=== PATIENT | female | born 1950 | race Caucasian/White ===

== ENCOUNTER → 2018-01-11 | Outpatient (CLI) | payer MEDICARE ==
[2018-01-11 18:49] LABS: Calcium 9.7 mg/dL (8.4-10.2); Total Bilirubin 0.5 mg/dL (0.2-1.3); Total Protein 6.8 g/dL (6.3-8.2)
== END | disposition home or self-care (01) ==
LOC: MMGSC 16:07
PROVIDERS: ATTEND Family Medicine
DX: E78.5 Hyperlipidemia, unspecified (principal)
CPT/HCPCS: 36415; 80053; 80061; 99214

== ENCOUNTER 2019-01-19 10:13 | Inpatient (IN) | payer MEDICARE ==
[2019-01-19] MEDS ORDERED: SODIUM CHLORIDE 0.9% 1,000 ML IV STA (10:26)
[2019-01-19] MEDS ORDERED: SODIUM CHLORIDE 0.9% 500 ML 500 ML IV STA (10:26)
--- NOTE | 2019-01-19 10:53 | ED ---
General Adult HPI - General Source: patient, EMS, RN notes reviewed Mode of arrival: EMS Limitations: no limitations <Bentley Guardado - Last Filed: 01/19/19 15:09> <Ángel Elizalde - Last Filed: 01/19/19 15:15> - General Stated complaint: Weakness Time Seen by Provider: 01/19/19 10:25 - History of Present Illness Initial comments: 68-year-old female presents emergency department via EMS for generalized weakness unable to care for herself. Patient is currently in the hospital. Patient was found tingling in her bed [id number]. Patient states that she has difficulty walking normally uses a walker but states that she just unable to care for herself that she is too weak. Patient denies any current chest pain or shortness of breath denies any headache or dizziness. Patient has a history of IA with stent, diverticulitis with surgery. Patient denies any current dysuria or hematuria. Patient states that she has been taking some of her medications. (Bentley Guardado) - Related Data Home Medications Medication Instructions Recorded Confirmed Aspirin 325 mg PO DAILY 10/13/16 01/19/19 Carvedilol 25 mg PO BID 10/13/16 01/19/19 Cholecalciferol [Vitamin D3] 1,000 unit PO DAILY 10/13/16 01/19/19 Lisinopril [Zestril] 10 mg PO QAM 10/13/16 01/19/19 Simvastatin [Zocor] 40 mg PO HS 10/13/16 01/19/19 amLODIPine [Norvasc] 5 mg PO QAM 10/13/16 01/19/19 Atorvastatin [Lipitor] 40 mg PO HS 01/19/19 01/19/19 Gabapentin [Neurontin] 100 mg PO HS 01/19/19 01/19/19 Loratadine [Claritin] 10 mg PO DAILY 01/19/19 01/19/19 Nitroglycerin Sl Tabs [Nitrostat] 0.4 mg SUBLINGUAL Q5M PRN 01/19/19 01/19/19 Allergies Allergy/AdvReac Type Severity Reaction Status Date / Time No Known Allergies Allergy Verified 01/19/19 10:36 Review of Systems ROS Other: All systems not noted in ROS Statement are negative. <Bentley Guardado - Last Filed: 01/19/19 15:09> ROS Other: All systems not noted in ROS Statement are negative. <Ángel Elizalde - Last Filed: 01/19/19 15:15> ROS Statement: Those systems with pertinent positive or pertinent negative responses have been documented in the HPI. Past Medical History Past Medical History: Hyperlipidemia, Hypertension, Osteoarthritis (OA) Additional Past Medical History / Comment(s): diverticulitis, stated "has some balance issues d/t bad rt knee and lt hip", right drop foot History of Any Multi-Drug Resistant Organisms: None Reported Past Surgical History: Bowel Resection, Heart Catheterization With Stent Additional Past Surgical History / Comment(s): Colostomy and reversal. OPEN VENTRAL HERNIA REPAIR Past Anesthesia/Blood Transfusion Reactions: No Reported Reaction Date of Last Stent Placement:: 2010 Past Psychological History: Anxiety, Depression Smoking Status: Current every day smoker Past Alcohol Use History: None Reported Past Drug Use History: None Reported - Past Family History Mother Family Medical History: No Reported History <Bentley Guardado - Last Filed: 01/19/19 15:09> General Exam Limitations: no limitations General appearance: alert, in no apparent distress Head exam: Present: atraumatic, normocephalic, normal inspection Eye exam: Present: normal appearance, PERRL, EOMI. Absent: scleral icterus, conjunctival injection, periorbital swelling ENT exam: Present: normal exam, normal oropharynx, mucous membranes moist, TM's normal bilaterally Neck exam: Present: normal inspection, full ROM. Absent: tenderness, meningismus, lymphadenopathy Respiratory exam: Present: normal lung sounds bilaterally. Absent: respiratory distress, wheezes, rales, rhonchi, stridor Cardiovascular Exam: Present: regular rate, normal rhythm, normal heart sounds. Absent: systolic murmur, diastolic murmur, rubs, gallop, clicks GI/Abdominal exam: Present: soft, normal bowel sounds. Absent: distended, tenderness, guarding, rebound, rigid Back exam: Absent: CVA tenderness (R), CVA tenderness (L) Neurological exam: Present: alert, oriented X3, CN II-XII intact, reflexes normal. Absent: motor sensory deficit Psychiatric exam: Present: depressed. Absent: homicidal ideation, suicidal ideation Skin exam: Present: warm, dry, intact, normal color. Absent: rash <Bentley Guardado - Last Filed: 01/19/19 15:09> Vital Signs 01/19/19 01/19/19 01/19/19 10:21 10:26 10:30 Temperature 97.8 F Pulse Rate 67 64 66 Respiratory 18 18 17 Rate Blood Pressure 146/79 146/76 146/79 O2 Sat by Pulse 95 96 98 Oximetry 01/19/19 11:00 Temperature Pulse Rate 62 Respiratory 18 Rate Blood Pressure 116/82 O2 Sat by Pulse 98 Oximetry EKG Findings - EKG Comments: EKG Findings:: EKG performed at 11:37 normal sinus rhythm with a first-degree block rate of 62 OK 226 QRS 72 QT/QTC 382/387 <Bentley Guardado - Last Filed: 01/19/19 15:09> Medical Decision Making - Lab Data Result diagrams: 01/19/19 11:20 01/19/19 11:20 <Bentley Guardado - Last Filed: 01/19/19 15:09> - Lab Data Result diagrams: 01/19/19 11:20 01/19/19 11:20 <Ángel Elizalde - Last Filed: 01/19/19 15:15> - Medical Decision Making 68-year-old female presented to emergency department for inability to care for herself, generalized weakness and depression. Patient was evaluated by EPS he does not recommend inpatient treatment for depression though she needs outpatient treatment. Patient does have extreme difficulty with ambulating to the point where she is near nonambulatory. Patient was found soiled in her own bed. Patient lab work shows mild acute on chronic renal failure. A she will be admitted to be placed in a long-term. (Bentley Guardado) Case discussed with practitioner quang, case also discussed with Dr. New, who will admit cover with Dr. Ramírez. (Ángel Elizalde) - Lab Data Lab Results 01/19/19 01/19/19 01/19/19 Range/Units 11:20 11:20 11:20 WBC 7.9 (3.8-10.6) k/uL RBC 4.03 (3.80-5.40) m/uL Hgb 12.5 (11.4-16.0) gm/dL Hct 38.8 (34.0-46.0) % MCV 96.4 (80.0-100.0) fL MCH 30.9 (25.0-35.0) pg MCHC 32.1 (31.0-37.0) g/dL RDW 13.0 (11.5-15.5) % Plt Count 205 (150-450) k/uL Neutrophils % 76 % Lymphocytes % 12 % Monocytes % 5 % Eosinophils % 5 % Basophils % 1 % Neutrophils # 6.0 (1.3-7.7) k/uL Lymphocytes # 0.9 L (1.0-4.8) k/uL Monocytes # 0.4 (0-1.0) k/uL Eosinophils # 0.4 (0-0.7) k/uL Basophils # 0.1 (0-0.2) k/uL PT (9.0-12.0) sec INR (<1.2) APTT (22.0-30.0) sec Sodium 141 (137-145) mmol/L Potassium 5.2 H (3.5-5.1) mmol/L Chloride 110 H (98-107) mmol/L Carbon Dioxide 24 (22-30) mmol/L Anion Gap 7 mmol/L BUN 33 H (7-17) mg/dL Creatinine 2.29 H (0.52-1.04) mg/dL Est GFR (CKD-EPI)AfAm 24 (>60 ml/min/1.73 sqM) Est GFR (CKD-EPI)NonAf 21 (>60 ml/min/1.73 sqM) Glucose 99 (74-99) mg/dL Plasma Lactic Acid Carlos 0.7 (0.7-2.0) mmol/L Calcium 9.5 (8.4-10.2) mg/dL Phosphorus 4.1 (2.5-4.5) mg/dL Magnesium 2.1 (1.6-2.3) mg/dL Total Bilirubin 0.7 (0.2-1.3) mg/dL AST 16 (14-36) U/L ALT 29 (9-52) U/L Alkaline Phosphatase 95 (38-126) U/L Creatine Kinase 60 (30-135) U/L Troponin I (0.000-0.034) ng/mL Total Protein 6.5 (6.3-8.2) g/dL Albumin 3.7 (3.5-5.0) g/dL Urine Color Urine Appearance (Clear) Urine pH (5.0-8.0) Ur Specific [place] (1.001-1.035) Urine Protein (Negative) Urine Glucose (UA) (Negative) Urine Ketones (Negative) Urine Blood (Negative) Urine Nitrite (Negative) Urine Bilirubin (Negative) Urine Urobilinogen (<2.0) mg/dL Ur Leukocyte Esterase (Negative) 01/19/19 01/19/19 01/19/19 Range/Units 11:20 11:20 11:20 WBC (3.8-10.6) k/uL RBC (3.80-5.40) m/uL Hgb (11.4-16.0) gm/dL Hct (34.0-46.0) % MCV (80.0-100.0) fL MCH (25.0-35.0) pg MCHC (31.0-37.0) g/dL RDW (11.5-15.5) % Plt Count (150-450) k/uL Neutrophils % % Lymphocytes % % Monocytes % % Eosinophils % % Basophils % % Neutrophils # (1.3-7.7) k/uL Lymphocytes # (1.0-4.8) k/uL Monocytes # (0-1.0) k/uL Eosinophils # (0-0.7) k/uL Basophils # (0-0.2) k/uL PT 9.7 (9.0-12.0) sec INR 0.9 (<1.2) APTT 22.3 (22.0-30.0) sec Sodium (137-145) mmol/L Potassium (3.5-5.1) mmol/L Chloride (98-107) mmol/L Carbon Dioxide (22-30) mmol/L Anion Gap mmol/L BUN (7-17) mg/dL Creatinine (0.52-1.04) mg/dL Est GFR (CKD-EPI)AfAm (>60 ml/min/1.73 sqM) Est GFR (CKD-EPI)NonAf (>60 ml/min/1.73 sqM) Glucose (74-99) mg/dL Plasma Lactic Acid Carlos (0.7-2.0) mmol/L Calcium (8.4-10.2) mg/dL Phosphorus (2.5-4.5) mg/dL Magnesium (1.6-2.3) mg/dL Total Bilirubin (0.2-1.3) mg/dL AST (14-36) U/L ALT (9-52) U/L Alkaline Phosphatase (38-126) U/L Creatine Kinase (30-135) U/L Troponin I 0.023 (0.000-0.034) ng/mL Total Protein (6.3-8.2) g/dL Albumin (3.5-5.0) g/dL Urine Color Light Yellow Urine Appearance Clear (Clear) Urine pH 5.5 (5.0-8.0) Ur Specific [place] 1.010 (1.001-1.035) Urine Protein Trace H (Negative) Urine Glucose (UA) Negative (Negative) Urine Ketones Negative (Negative) Urine Blood Negative (Negative) Urine Nitrite Negative (Negative) Urine Bilirubin Negative (Negative) Urine Urobilinogen <2.0 (<2.0) mg/dL Ur Leukocyte Esterase Negative (Negative) Disposition <Bentley Guardado - Last Filed: 01/19/19 15:09> <Ángel Elizalde - Last Filed: 01/19/19 15:15> Clinical Impression: Unable to ambulate, Failure to thrive, Acute on chronic renal failure, Wound of foot Disposition: ADMITTED IP TO THIS HOSP Condition: Fair Referrals: Elsa Xiong MD [Primary Care Provider] - 1-2 days
[2019-01-19 11:40] LABS: Basophils # (A) 0.1 k/uL (0-0.2); Basophils % (A) 1 %; Eosinophils # (A) 0.4 k/uL (0-0.7); Eosinophils % (A) 5 %; HCT 38.8 % (34.0-46.0); HGB 12.5 gm/dL (11.4-16.0); Lymphocytes # (A) 0.9 k/uL (1.0-4.8); Lymphocytes % (A) 12 %; MCH 30.9 pg (25.0-35.0); MCHC 32.1 g/dL (31.0-37.0); MCV 96.4 fL (80.0-100.0); Mean Platelet Volume 7.8; Monocytes # (A) 0.4 k/uL (0-1.0); Monocytes % (A) 5 %; Neutrophils % (A) 76 %; Platelet Count 205 k/uL (150-450); RBC 4.03 m/uL (3.80-5.40); WBC 7.9 k/uL (3.8-10.6)
[2019-01-19 11:47] LABS: Appearance,Urine Clear (Clear); Bilirubin,Urine Negative (Negative); Blood,Urine Negative (Negative); Color,Urine Light Yellow; Glucose,Urine (UA) Negative (Negative); Ketones,Urine Negative (Negative); Leukocyte Esterase,Urine Negative (Negative); Nitrite,Urine Negative (Negative); PH, Urine 5.5 (5.0-8.0); Protein,Urine Trace (Negative); Urobilinogen,Urine <2.0 mg/dL (<2.0)
[2019-01-19 11:49] LABS: Albumin 3.7 g/dL (3.5-5.0); Calcium 9.5 mg/dL (8.4-10.2); Magnesium 2.1 mg/dL (1.6-2.3); Phosphorus 4.1 mg/dL (2.5-4.5); Potassium 5.2 mmol/L (3.5-5.1); Total Bilirubin 0.7 mg/dL (0.2-1.3); Total Protein 6.5 g/dL (6.3-8.2)
[2019-01-19 11:53] LABS: INR 0.9 (<1.2); Partial Thromboplastin Time 22.3 sec (22.0-30.0); Prothrombin Time 9.7 sec (9.0-12.0)
--- NOTE | 2019-01-19 12:56 | XR ---
EXAMINATION TYPE: XR chest 2V DATE OF EXAM: 01/19/2019 COMPARISON: Chest x-ray February 15, 2010 HISTORY: Weakness TECHNIQUE: Frontal and lateral views of the chest are obtained. FINDINGS: The cardiac silhouette size remains enlarged. Lungs are grossly clear without pleural effu joni or pneumothorax seen bilaterally. Ectatic thoracic aorta causing mass effect on trachea is note d. Overlying EKG leads are seen. The osseous structures are intact. IMPRESSION: Cardiomegaly without acute pulmonary process currently.
[2019-01-19] MEDS ORDERED: NALOXONE 0.4 MG/ML 1 ML VIAL IV PRN (15:26)
[2019-01-19] MEDS ORDERED: ACETAMINOPHEN TAB 325 MG TAB PO PRN (16:45)
--- NOTE | 2019-01-19 17:05 | P.HPIM ---
History of Present Illness H&P Date: 01/19/19 Chief Complaint: Generalized weakness, placement 68-year-old female with PMH of hypertension, hyperlipidemia, CAD and DJD of the knees presents to the ED for failure to thrive and generalized weakness. Patient usually lives with her , who is in charge of taking care of her, but has been admitted for the past 2 days. Patient states that she ambulates with a walker with the assistance of her . Her was concerned today, prompting him to call EMS for safety concerns. Patient states that she feels unsafe, and is fearful of falling, and was agreeable to come to the ED. Of note, patient reports lower extremity weakness that began 7 years ago after receiving a stent post [place]. She was started on simvastatin, and continue that medication over the span of a year. Patient reported profound muscle weakness, spasms over that time. Patient states that she never recovered and has continuously gotten weak since then. She also complains of chronic bilateral knee pain, related to osteoarthritis. Patient reports falling 1-1/2 weeks ago, states that her knees gave in on her. She denies any headaches, nausea, vomiting, fever, cough, chest pain, shortness of breath, changes in urination or bowel habits. No changes in appetite or weight. No dizziness, numbness, or tingling of the extremities. Patient states that she has been eating [employer] and frozen food dinners over the last 2 days. In the ED, CBC was unremarkable. Coagulation panel was negative. CMP showed a potassium of 5.2, chloride of 110, BUN of 33 and creatinine of 2.29. Patient is admitted for failure to thrive, generalized weakness, placement. Social work is on consult. Review of Systems All systems: negative Past Medical History Past Medical History: Hyperlipidemia, Hypertension, Osteoarthritis (OA) Additional Past Medical History / Comment(s): diverticulitis, stated "has some balance issues d/t bad rt knee and lt hip", right drop foot History of Any Multi-Drug Resistant Organisms: None Reported Past Surgical History: Bowel Resection, Heart Catheterization With Stent Additional Past Surgical History / Comment(s): Colostomy and reversal. OPEN VENTRAL HERNIA REPAIR Past Anesthesia/Blood Transfusion Reactions: No Reported Reaction Date of Last Stent Placement:: 2010 Past Psychological History: Anxiety, Depression Smoking Status: Current every day smoker Past Alcohol Use History: None Reported Past Drug Use History: None Reported - Past Family History Mother Family Medical History: No Reported History Medications and Allergies Home Medications Medication Instructions Recorded Confirmed Type Aspirin 325 mg PO DAILY 10/13/16 01/19/19 History Carvedilol 25 mg PO BID 10/13/16 01/19/19 History Cholecalciferol [Vitamin D3] 1,000 unit PO DAILY 10/13/16 01/19/19 History Lisinopril [Zestril] 10 mg PO QAM 10/13/16 01/19/19 History Simvastatin [Zocor] 40 mg PO HS 10/13/16 01/19/19 History amLODIPine [Norvasc] 5 mg PO QAM 10/13/16 01/19/19 History Atorvastatin [Lipitor] 40 mg PO HS 01/19/19 01/19/19 History Gabapentin [Neurontin] 100 mg PO HS 01/19/19 01/19/19 History Loratadine [Claritin] 10 mg PO DAILY 01/19/19 01/19/19 History Nitroglycerin Sl Tabs [Nitrostat] 0.4 mg SUBLINGUAL Q5M PRN 01/19/19 01/19/19 History Allergies Allergy/AdvReac Type Severity Reaction Status Date / Time No Known Allergies Allergy Verified 01/19/19 10:36 Physical Exam Vitals: Vital Signs Temp Pulse Pulse Resp BP BP Pulse Ox 01/19/19 16:33 98.4 F 70 16 147/76 97 01/19/19 11:00 62 18 116/82 98 01/19/19 10:30 66 17 146/79 98 01/19/19 10:26 97.8 F 64 18 146/76 96 01/19/19 10:21 67 18 146/79 95 Intake and Output 01/19/19 01/19/19 01/19/19 06:59 14:59 22:59 Other: Weight 86.183 kg General: [non toxic], [no distress], [appears at stated age] Derm: [warm], [dry] Head: [atraumatic], [normocephalic], [symmetric] Eyes: [EOMI], [no lid lag], [anicteric sclera] Mouth: [no lip lesion], [mucus membranes moist] Cardiovascular: [S1S2 reg], [no murmur] Lungs: [CTA bilateral], [no rhonchi, no rales] , [no accessory muscle use] Abdominal: [soft], [ nontender to palpation], [no guarding], [no appreciable organomegaly] Ext: [no gross muscle atrophy], [no edema], [no contractures] Neuro: [ CN II-XI grossly intact], [no focal neuro deficits] Psych: [Alert], [oriented], [appropriate affect] Results CBC & Chem 7: 01/19/19 11:20 01/19/19 11:20 Labs: Abnormal Lab Results - Last 24 Hours (Table) 01/19/19 01/19/19 01/19/19 Range/Units 11:20 11:20 11:20 Lymphocytes # 0.9 L (1.0-4.8) k/uL Potassium 5.2 H (3.5-5.1) mmol/L Chloride 110 H (98-107) mmol/L BUN 33 H (7-17) mg/dL Creatinine 2.29 H (0.52-1.04) mg/dL Urine Protein Trace H (Negative) Thrombosis Risk Factor Assmnt - Choose All That Apply Any of the Below Risk Factors Present?: Yes Each Factor Represents 1 point: Obesity (BMI >25) Other Risk Factors: Yes Each Risk Factor Represents 2 Points: Age 61-74 years, Patient confined to bed Thrombosis Risk Factor Assessment Total Risk Factor Score: 5 Thrombosis Risk Factor Assessment Level: High Risk Assessment and Plan Assessment: Assessment and Plan 1. Failure to thrive secondary to generalized weakness 2. Hyperkalemia 3. Acute kidney injury on chronic kidney disease 4. Hypertension 5. CAD 6. DVT GI prophylaxis 1. Per history, secondary to simvastatin use. Patient unable to complete her ADLs and IADLs. Will follow CPK, RPR, B12, TSH. Will follow PT and OT recommendations. Social work consulted for placement. 2. Potassium is 5.2. EKG shows sinus rhythm with sinus arrhythmia and first- degree AV block, no peaked T waves. Patient is asymptomatic. Daily BMP. 3. BUN 33, creatinine 2.29 GFR 21. Baseline creatinine around 2 from previous admissions. Hold lisinopril. Continue normal saline at 50 mL per hour. Avoid nephrotoxins. Daily BMP. 4. BP 147/76. Continue amlodipine 5 mg by mouth daily. Monitor vitals, adjust medications as necessary. 5. Stable. Continue aspirin 325 mg by mouth daily. Statin on hold due to muscle weakness. 6. Lovenox 40 mg subcutaneously daily. Patient admitted for failure to thrive, unable to take care of herself. Social work is on consult. Patient states that she would like to make her , Antonino the decision maker if she is unable to make decisions.
[2019-01-19] MEDS: HYDROcodone/APAP 5-325MG 1 EACH TAB PO PRN ×2 (17:40→21:31)
[2019-01-19] MEDS: CARVEDILOL 12.5 MG TAB PO SCH (17:40)
[2019-01-19] MEDS: SODIUM CHLORIDE 0.9% 1,000 ML IV SCH (18:33)
[2019-01-19] MEDS: GABAPENTIN 100 MG CAP PO SCH (21:24)
[2019-01-20] MEDS: CARVEDILOL 12.5 MG TAB PO SCH ×2 (07:26→16:07)
[2019-01-20] MEDS: LORATADINE 10 MG TAB PO SCH (07:27)
[2019-01-20] MEDS: ASPIRIN 325 MG TAB PO SCH (07:27)
[2019-01-20] MEDS: HYDROcodone/APAP 5-325MG 1 EACH TAB PO PRN (07:27)
[2019-01-20] MEDS: amLODIPine 5 MG TAB PO SCH (07:27)
[2019-01-20] MEDS ORDERED: LISINOPRIL 10 MG TAB PO SCH (09:00)
[2019-01-20] MEDS ORDERED: ENOXAPARIN 40 MG/0.4 ML SYRINGE SQ SCH (09:00)
[2019-01-20 09:03] LABS: Calcium 9.7 mg/dL (8.4-10.2)
--- NOTE | 2019-01-20 10:28 | P.PN ---
Subjective Progress Note Date: 01/20/19 Principal diagnosis: weakness Patient was seen and examined. No acute events overnight. Patient reports difficulty sleeping overnight, requesting sleeping aid. Patient reports pain in her bilateral knee, associated with advanced osteoarthritis. Patient reports that [place] does not work, requesting a change in medication due to the fact that she is used to for too long. She denies any chest pain, shortness of breath or palpitations. No dizziness. Objective - Vital Signs Vital signs: Vital Signs Temp 98.4 F 01/20/19 06:31 Pulse 71 01/20/19 06:31 Resp 18 01/20/19 08:00 BP 157/87 01/20/19 06:31 Pulse Ox 94 L 01/20/19 06:31 Intake & Output 01/19/19 01/20/19 01/20/19 18:59 06:59 18:59 Intake Total 520 Balance 520 Weight 86.183 kg Intake: Oral 520 Other: Voiding Method Incontinent Bedside Commode Bedside Commode Incontinent Diaper Incontinent # Voids 1 # Bowel Movements 0 - Exam General: [non toxic], [no distress], [appears at stated age] Derm: [warm], [dry] Head: [atraumatic], [normocephalic], [symmetric] Eyes: [EOMI], [no lid lag], [anicteric sclera] Mouth: [no lip lesion], [mucus membranes moist] Cardiovascular: [S1S2 reg], [no murmur] Lungs: [CTA bilateral], [no rhonchi, no rales] , [no accessory muscle use] Abdominal: [soft], [ nontender to palpation], [no guarding], [no appreciable organomegaly] Ext: [no gross muscle atrophy], [no edema], [no contractures] Neuro: [ CN II-XI grossly intact], [no focal neuro deficits] Psych: [Alert], [oriented], [appropriate affect] - Labs CBC & Chem 7: 01/19/19 11:20 01/20/19 08:24 Labs: Abnormal Lab Results - Last 24 Hours (Table) 01/19/19 01/19/19 01/19/19 Range/Units 11:20 11:20 11:20 Lymphocytes # 0.9 L (1.0-4.8) k/uL Potassium 5.2 H (3.5-5.1) mmol/L Chloride 110 H (98-107) mmol/L Carbon Dioxide (22-30) mmol/L BUN 33 H (7-17) mg/dL Creatinine 2.29 H (0.52-1.04) mg/dL Glucose (74-99) mg/dL Urine Protein Trace H (Negative) 01/20/19 Range/Units 08:24 Lymphocytes # (1.0-4.8) k/uL Potassium (3.5-5.1) mmol/L Chloride 111 H (98-107) mmol/L Carbon Dioxide 21 L (22-30) mmol/L BUN 32 H (7-17) mg/dL Creatinine 2.14 H (0.52-1.04) mg/dL Glucose 111 H (74-99) mg/dL Urine Protein (Negative) Assessment and Plan Assessment: Assessment and Plan 1. Failure to thrive secondary to generalized weakness 2. Acute kidney injury on chronic kidney disease 4. Hypertension 5. CAD 6. DVT GI prophylaxis 1. Per history, secondary to simvastatin use. Patient unable to complete her ADLs and IADLs. CPK and TSH within normal limits. Will follow RPR, B12 Will follow PT and OT recommendations. Social work consulted for placement. 3. BUN 33-32, creatinine 2.29-2.14 GFR 21-23. Baseline creatinine around 2 from previous admissions. Hold lisinopril. Continue normal saline at 50 mL per hour. Avoid nephrotoxins. Daily BMP. 4. BP 157/87. Continue amlodipine 5 mg by mouth daily. Monitor vitals, adjust medications as necessary. 5. Stable. Continue aspirin 325 mg by mouth daily. Statin on hold due to muscle weakness. 6. Lovenox 40 mg subcutaneously daily. Patient admitted for failure to thrive, unable to take care of herself. Social work is on consult. Patient states that she would like to make her , Antonino the decision maker if she is unable to make decisions.
[2019-01-20] MEDS: MORPHINE SULFATE 2 MG/ML SYRINGE IV PRN ×3 (10:31→23:03)
[2019-01-20] MEDS: oxyCODONE-APAP 7.5-325MG 1 EACH TAB PO PRN (12:24)
[2019-01-20] MEDS: SODIUM CHLORIDE 0.9% 1,000 ML IV SCH (13:59)
--- NOTE | 2019-01-20 17:56 | P.GSHP ---
History of Present Illness H&P Date: 01/20/19 Chief Complaint: Wound right foot Patient 68-year-old female admitted several days ago for weakness and failure to thrive. Patient states that over the last several weeks she is being coming week or week or nonviable or walk etc. Patient has a past medical history of stent placement in treatment for high prior cholesterol. Patient has been on cholesterol medicine and had been getting weaker and weaker. He states the right big toe became sore several days ago when she fell. She has not had her nails taken care of for several months or longer. Able to get out of the house Past Medical History Past Medical History: Hyperlipidemia, Hypertension, Osteoarthritis (OA) Additional Past Medical History / Comment(s): diverticulitis, stated "has some balance issues d/t bad rt knee and lt hip", right drop foot History of Any Multi-Drug Resistant Organisms: None Reported Past Surgical History: Bowel Resection, Heart Catheterization With Stent Additional Past Surgical History / Comment(s): Colostomy and reversal. OPEN VENTRAL HERNIA REPAIR Past Anesthesia/Blood Transfusion Reactions: No Reported Reaction Date of Last Stent Placement:: 2010 Past Psychological History: Anxiety, Depression Smoking Status: Current every day smoker Past Alcohol Use History: None Reported Past Drug Use History: None Reported - Past Family History Mother Family Medical History: No Reported History Medications and Allergies Home Medications Medication Instructions Recorded Confirmed Type Aspirin 325 mg PO DAILY 10/13/16 01/19/19 History Carvedilol 25 mg PO BID 10/13/16 01/19/19 History Cholecalciferol [Vitamin D3] 1,000 unit PO DAILY 10/13/16 01/19/19 History Lisinopril [Zestril] 10 mg PO QAM 10/13/16 01/19/19 History Simvastatin [Zocor] 40 mg PO HS 10/13/16 01/19/19 History amLODIPine [Norvasc] 5 mg PO QAM 10/13/16 01/19/19 History Atorvastatin [Lipitor] 40 mg PO HS 01/19/19 01/19/19 History Gabapentin [Neurontin] 100 mg PO HS 01/19/19 01/19/19 History Loratadine [Claritin] 10 mg PO DAILY 01/19/19 01/19/19 History Nitroglycerin Sl Tabs [Nitrostat] 0.4 mg SUBLINGUAL Q5M PRN 01/19/19 01/19/19 History Allergies Allergy/AdvReac Type Severity Reaction Status Date / Time No Known Allergies Allergy Verified 01/19/19 10:36 Surgical - Exam Vital Signs Pulse Resp BP Pulse Ox 67 18 146/79 95 01/19/19 10:21 01/19/19 10:21 01/19/19 10:21 01/19/19 10:21 - Cardiovascular Patient has generalized edema bilateral lower extremities. Secondary to the edema there is nonpalpable pedal pulses. There is no digital hair 10. The extremities are cold bilateral. - Integumentary Patient has fairly elongated nails 10 with an airless. Dystrophic and elongated excessively. The example of the excessive notices that the hallux nails are both at least 4 inches long. The right hallux nail is traumatized and avulsed from the nail bed and attached at the proximal nail fold hematogenous fluid surrounding this area. There is no extending erythema edema or sign of infection the remaining nails are similarly dystrophic elongated with mycotic debris. - Neurologic All epicritic and pallesthetic sensations grossly intact and symmetrical bilateral - Musculoskeletal Range of motion ankle joint decreased bilateral range of motion subtalar joint and midtarsal joint decreased bilateral decreased range of motion metatarsophalangeal joints bilateral all inverters everters plantar flexed dorsiflexors grossly intact symmetrical bilateral with strength 4/5 all groups Results - Labs 01/19/19 11:20 01/20/19 08:24 Abnormal Lab Results - Last 24 Hours (Table) 01/20/19 Range/Units 08:24 Chloride 111 H (98-107) mmol/L Carbon Dioxide 21 L (22-30) mmol/L BUN 32 H (7-17) mg/dL Creatinine 2.14 H (0.52-1.04) mg/dL Glucose 111 H (74-99) mg/dL Diabetes panel 01/20/19 Range/Units 08:24 Sodium 140 (137-145) mmol/L Potassium 5.0 (3.5-5.1) mmol/L Chloride 111 H (98-107) mmol/L Carbon Dioxide 21 L (22-30) mmol/L BUN 32 H (7-17) mg/dL Creatinine 2.14 H (0.52-1.04) mg/dL Glucose 111 H (74-99) mg/dL Calcium 9.7 (8.4-10.2) mg/dL Thyroid panel 01/20/19 Range/Units 08:24 TSH 0.804 (0.465-4.680) mIU/L Calcium panel 01/20/19 Range/Units 08:24 Calcium 9.7 (8.4-10.2) mg/dL Pituitary panel 01/20/19 Range/Units 08:24 Sodium 140 (137-145) mmol/L Potassium 5.0 (3.5-5.1) mmol/L Chloride 111 H (98-107) mmol/L Carbon Dioxide 21 L (22-30) mmol/L BUN 32 H (7-17) mg/dL Creatinine 2.14 H (0.52-1.04) mg/dL Glucose 111 H (74-99) mg/dL Calcium 9.7 (8.4-10.2) mg/dL TSH 0.804 (0.465-4.680) mIU/L Adrenal panel 01/20/19 Range/Units 08:24 Sodium 140 (137-145) mmol/L Potassium 5.0 (3.5-5.1) mmol/L Chloride 111 H (98-107) mmol/L Carbon Dioxide 21 L (22-30) mmol/L BUN 32 H (7-17) mg/dL Creatinine 2.14 H (0.52-1.04) mg/dL Glucose 111 H (74-99) mg/dL Calcium 9.7 (8.4-10.2) mg/dL Assessment and Plan Assessment: Hematoma right hallux with traumatically avulsion of nail partial Elongated dystrophic mycotic nails 10 Peripheral vascular disease Plan: Exam. Today we I&D the hematoma with removal of the nail plate and evacuation hematoma with a curette around the proximal nail fold patient will have topical antibiotic and a dressing applied to this dental healed. We reduced the remaining nails to avoid similar risk that happened to the right hallux. Patient would benefit from periodic care. We discussed this with patient. Thank you for this consult
[2019-01-20] MEDS: NEOMYCIN-BACITRACIN-POLY OINT 14 GM TUBE TOPICAL SCH (22:54)
[2019-01-20] MEDS: GABAPENTIN 100 MG CAP PO SCH (22:54)
[2019-01-21] MEDS: MORPHINE SULFATE 2 MG/ML SYRINGE IV PRN (05:23)
[2019-01-21] MEDS: CARVEDILOL 12.5 MG TAB PO SCH ×2 (08:31→17:24)
[2019-01-21] MEDS: ENOXAPARIN 30 MG/0.3 ML SYRINGE SQ SCH (08:31)
[2019-01-21] MEDS: ASPIRIN 325 MG TAB PO SCH (08:31)
[2019-01-21] MEDS: LORATADINE 10 MG TAB PO SCH (08:31)
[2019-01-21] MEDS: SODIUM CHLORIDE 0.9% 1,000 ML IV SCH (08:31)
[2019-01-21] MEDS: amLODIPine 5 MG TAB PO SCH (08:31)
[2019-01-21] MEDS: oxyCODONE-APAP 7.5-325MG 1 EACH TAB PO PRN ×4 (08:32→21:57)
[2019-01-21] MEDS: NEOMYCIN-BACITRACIN-POLY OINT 14 GM TUBE TOPICAL SCH ×2 (08:34→21:58)
--- NOTE | 2019-01-21 12:56 | P.PN ---
Subjective Progress Note Date: 01/21/19 Principal diagnosis: Generalized weakness, right toe injury Patient was seen and examined. No acute events overnight. Patient reports chronic bilateral knee pain, associated with osteoarthritis. Requesting increase in her pain medication. Otherwise, eating well. She denies any chest pain, shortness of breath or palpitations. No fever or chills. No nausea or vomiting. Objective - Vital Signs Vital signs: Vital Signs Temp 98.8 F 01/21/19 06:29 Pulse 73 01/21/19 06:29 Resp 20 01/21/19 06:29 BP 154/73 01/21/19 06:29 Pulse Ox 94 L 01/21/19 06:29 Intake & Output 01/20/19 01/21/19 01/21/19 18:59 06:59 18:59 Other: Voiding Method Incontinent Incontinent # Voids 2 3 - Exam General: [non toxic], [no distress], [appears at stated age] Derm: [warm], [dry] Head: [atraumatic], [normocephalic], [symmetric] Eyes: [EOMI], [no lid lag], [anicteric sclera] Mouth: [no lip lesion], [mucus membranes moist] Cardiovascular: [S1S2 reg], [no murmur] Lungs: [CTA bilateral], [no rhonchi, no rales] , [no accessory muscle use] Abdominal: [soft], [ nontender to palpation], [no guarding], [no appreciable organomegaly] Ext: [no gross muscle atrophy], [no edema], [no contractures], [right foot wrapped, dressing clean dry and intact] Neuro: [ CN II-XI grossly intact], [no focal neuro deficits] Psych: [Alert], [oriented], [appropriate affect] - Labs CBC & Chem 7: 01/19/19 11:20 01/20/19 08:24 Assessment and Plan Assessment: Assessment and Plan 1. Failure to thrive secondary to generalized weakness 2. Right toe injury 3. Acute kidney injury on chronic kidney disease 4. Hypertension 5. CAD 6. DVT GI prophylaxis 1. Per history, secondary to simvastatin use. Patient unable to complete her ADLs and IADLs. CPK and TSH within normal limits. Will follow RPR, B12 Will follow PT and OT recommendations. Social work consulted for placement. 2. Secondary to mechanical fall in the past. Seen by podiatry Dr. Solis, I&D of the hematoma and removal of the nail plate performed. Local wound care. 3. BUN 33-32, creatinine 2.29-2.14 GFR 21-23. Baseline creatinine around 2 from previous admissions. Hold lisinopril. Continue normal saline at 50 mL per hour. Avoid nephrotoxins. Daily BMP. 4. BP 154/73. Continue amlodipine 5 mg by mouth daily. Monitor vitals, adjust medications as necessary. 5. Stable. Continue aspirin 325 mg by mouth daily. Statin on hold due to muscle weakness. 6. Lovenox 40 mg subcutaneously daily. Patient admitted for failure to thrive, unable to take care of herself. Social work is on consult. Patient states that she would like to make her , Antonino the decision maker if she is unable to make decisions.
[2019-01-21] MEDS ORDERED: ZOLPIDEM 5 MG TAB PO PRN (18:06)
[2019-01-21] MEDS: GABAPENTIN 100 MG CAP PO SCH (21:54)
[2019-01-21] MEDS: MELATONIN 3 MG TABLET PO SCH (21:57)
[2019-01-22] MEDS: SODIUM CHLORIDE 0.9% 1,000 ML IV SCH (06:24)
[2019-01-22] MEDS: LORATADINE 10 MG TAB PO SCH (08:41)
[2019-01-22] MEDS: ENOXAPARIN 30 MG/0.3 ML SYRINGE SQ SCH (08:41)
[2019-01-22] MEDS: amLODIPine 5 MG TAB PO SCH (08:41)
[2019-01-22] MEDS: CARVEDILOL 12.5 MG TAB PO SCH ×2 (08:41→16:21)
[2019-01-22] MEDS: oxyCODONE-APAP 7.5-325MG 1 EACH TAB PO PRN ×4 (08:41→21:45)
[2019-01-22] MEDS: ASPIRIN 325 MG TAB PO SCH (08:41)
[2019-01-22] MEDS: NEOMYCIN-BACITRACIN-POLY OINT 14 GM TUBE TOPICAL SCH ×2 (08:42→21:42)
--- NOTE | 2019-01-22 11:37 | P.PN ---
Subjective Progress Note Date: 01/22/19 Principal diagnosis: Placement 68-year-old female with PMH of hypertension, hyperlipidemia, CAD and DJD of the knees presents to the ED for failure to thrive and generalized weakness. Patient usually lives with her , who is in charge of taking care of her, but has been admitted for the past 2 days. Patient states that she ambulates with a walker with the assistance of her . Her was concerned on the day of admission, prompting him to call EMS for safety concerns. Patient states that she feels unsafe, and is fearful of falling, and was agreeable to come to the ED. Patient is admitted for failure to thrive, generalized weakness , placement. Social work is on consult. She was also seen by customer service advocate Dr. Solis regarding a right big toe injury that happened after sustaining a mechanical fall a few weeks prior to admission. Patient was seen and examined. No acute events overnight. She denies any chest pain, shortness of breath or palpitations. No nausea or vomiting. No fever or chills. Objective - Vital Signs Vital signs: Vital Signs Temp 98.6 F 01/22/19 05:54 Pulse 72 01/22/19 05:54 Resp 20 01/22/19 05:54 BP 137/76 01/22/19 05:54 Pulse Ox 94 L 01/22/19 05:54 Intake & Output 01/21/19 01/22/19 01/22/19 18:59 06:59 18:59 Other: Voiding Method Incontinent # Voids 2 3 1 # Bowel Movements 0 - Exam General: [non toxic], [no distress], [appears at stated age] Derm: [warm], [dry] Head: [atraumatic], [normocephalic], [symmetric] Eyes: [EOMI], [no lid lag], [anicteric sclera] Mouth: [no lip lesion], [mucus membranes moist] Cardiovascular: [S1S2 reg], [no murmur] Lungs: [CTA bilateral], [no rhonchi, no rales] , [no accessory muscle use] Abdominal: [soft], [ nontender to palpation], [no guarding], [no appreciable organomegaly] Ext: [no gross muscle atrophy], [no edema], [no contractures], [right foot wrapped, dressing clean dry and intact] Neuro: [ CN II-XI grossly intact], [no focal neuro deficits] Psych: [Alert], [oriented], [appropriate affect] - Labs CBC & Chem 7: 01/19/19 11:20 01/20/19 08:24 Assessment and Plan Assessment: Assessment and Plan 1. Failure to thrive secondary to generalized weakness 2. Right toe injury 3. Acute kidney injury on chronic kidney disease 4. Hypertension 5. CAD 6. DVT GI prophylaxis 1. Per history, secondary to simvastatin use. Patient unable to complete her ADLs and IADLs. CPK and TSH within normal limits. B12 is within normal limits, RPR negative. Will follow PT and OT recommendations. Social work consulted for placement. 2. Secondary to mechanical fall in the past. Seen by podiatry Dr. Solis, I&D of the hematoma and removal of the nail plate performed. Local wound care. 3. BUN 33-32, creatinine 2.29-2.14 GFR 21-23. Baseline creatinine around 2 from previous admissions. Hold lisinopril. Continue normal saline at 50 mL per hour. Avoid nephrotoxins. Daily BMP. 4. BP 137/76. Continue amlodipine 5 mg by mouth daily. Monitor vitals, adjust medications as necessary. 5. Stable. Continue aspirin 325 mg by mouth daily. Statin on hold due to muscle weakness. 6. Lovenox 40 mg subcutaneously daily. Patient admitted for failure to thrive, unable to take care of herself. Social work is on consult. Hopeful discharge tomorrow to [facility] in [place].
[2019-01-22] MEDS: GABAPENTIN 100 MG CAP PO SCH (21:40)
[2019-01-22] MEDS: MELATONIN 3 MG TABLET PO SCH (21:41)
[2019-01-23] MEDS: SODIUM CHLORIDE 0.9% 1,000 ML IV SCH (05:51)
[2019-01-23] MEDS: LORATADINE 10 MG TAB PO SCH (08:04)
[2019-01-23] MEDS: ASPIRIN 325 MG TAB PO SCH (08:04)
[2019-01-23] MEDS: amLODIPine 5 MG TAB PO SCH (08:04)
[2019-01-23] MEDS: ENOXAPARIN 30 MG/0.3 ML SYRINGE SQ SCH (08:04)
[2019-01-23] MEDS: CARVEDILOL 12.5 MG TAB PO SCH (08:04)
[2019-01-23] MEDS: oxyCODONE-APAP 7.5-325MG 1 EACH TAB PO PRN ×3 (08:04→16:00)
[2019-01-23] MEDS: NEOMYCIN-BACITRACIN-POLY OINT 14 GM TUBE TOPICAL SCH (08:05)
--- NOTE | 2019-01-23 11:42 | P.DS ---
Providers Date of admission: 01/19/19 15:09 Expected date of discharge: 01/23/19 Attending physician: Keyonna Delgado DO Consults: 01/19/19 19:16 Consult Physician Routine Consulting Provider: Alex Solis Consult Reason/Comments: right torn toenail, right great toe wound Do you want consulting provider notified?: Yes [facility] [place] [facility] Course: Discharge Diagnosis: Mechanical fall Generalized weakness with failure to thrive with history of statin-induced myopathy Hematoma right hallux with traumatic avulsion of the nail Dystrophic mycotic nails bilateral feet Obesity with BMI 30.7 Hypertension Coronary artery disease Chronic kidney disease stage IV, no evidence for acute kidney injury with rising baseline creatinine of less than 0.3 Hospital Course: Patient is a 68-year-old female with a past medical history of hypertension, dyslipidemia, coronary artery disease, DJD, and history of statin- induced myopathy who presented to the hospital with complaints of generalized weakness and a recent fall. She was unable to care for herself at home. Laboratory analysis was unremarkable. She was admitted for inability to care for herself. She was found to have injury of right great toe and was seen by podiatry. She had an I and D preformed with evacuation of hematoma. She continued to need max assist when transferring. Her TSH and B12 levels were normal. She was negative for syphilis. She was determined stable for discharge and she will go to [facility] for rehab therapy. She complains of stiffness in her low back and difficulty moving after sitting and in the morning on waking. She also has arthritis changes on both hands. She is having increasing pain not responsive to narcotic medications. I did recommend an outpatient rheumatology evaluation. She has been using a walked at home for the last 7 years and is having progressive pain and weakness. Patient seen and examined at bedside. No chest pain, SOB, or nausea. Still feeling weak. Has not changed in years. Has lots of stiffness when trying to move as well as finger/wrist/shoulder pain. Vital signs reviewed and stable. General: non toxic, no distress, appears at stated age, obese Derm: warm, dry Head: atraumatic, normocephalic, symmetric Eyes: EOMI, no lid lag, anicteric sclera Mouth: no lip lesion, mucus membranes moist Cardiovascular: S1S2 reg, no murmur, positive posterior tibial pulse bilateral, Lungs: CTA bilateral, no rhonchi, no rales , no accessory muscle use Abdominal: soft, nontender to palpation, no guarding, no appreciable organomegaly Ext: no gross muscle atrophy, no edema, inflammation of b/l PIP with ulnar deviation, Neuro: CN II-XI grossly intact, no focal neuro deficits Psych: Alert, oriented, appropriate affect A total of 35 minutes of time were spent preparing this complex discharge summary . Pertinent Studies: CXR- NAP Procedures: 01/20/19- Bedside I and D Right Hallux hematoma Patient Condition at Discharge: Fair Plan - Discharge Summary Discharge Rx Participant: No New Discharge Prescriptions: New Loratadine [Claritin] 10 mg PO DAILY tab [id number] Oint [Triple Antibiotic Ointment] 1 applic TOPICAL BID applic Continue amLODIPine [Norvasc] 5 mg PO QAM Lisinopril [Zestril] 10 mg PO QAM Cholecalciferol [Vitamin D3] 1,000 unit PO DAILY Carvedilol 25 mg PO BID Aspirin 325 mg PO DAILY Atorvastatin [Lipitor] 40 mg PO HS HYDROcodone/APAP 7.5-325MG [[place] 7.5-325] 1 tab PO Q6HR PRN #28 tab PRN Reason: pain Discontinued Nitroglycerin Sl Tabs [Nitrostat] 0.4 mg SUBLINGUAL Q5M PRN PRN Reason: Chest Pain Discharge Medication List Aspirin 325 mg PO DAILY 10/13/16 [History] Carvedilol 25 mg PO BID 10/13/16 [History] Cholecalciferol [Vitamin D3] 1,000 unit PO DAILY 10/13/16 [History] Lisinopril [Zestril] 10 mg PO QAM 10/13/16 [History] amLODIPine [Norvasc] 5 mg PO QAM 10/13/16 [History] Atorvastatin [Lipitor] 40 mg PO HS 01/19/19 [History] HYDROcodone/APAP 7.5-325MG [[place] 7.5-325] 1 tab PO Q6HR PRN #28 tab 01/23/19 [ Rx] Loratadine [Claritin] 10 mg PO DAILY tab 01/23/19 [Rx] [id number] Oint [Triple Antibiotic Ointment] 1 applic TOPICAL BID applic 01/23/19 [Rx] Follow up Appointment(s)/Referral(s): Elsa Xiong MD [Primary Care Provider] - 1-2 days
[2019-01-23 14:46] VITALS: BP 127/79; PULSE 69; TEMP 97.9
[2019-01-23 15:16] VITALS: RESP 16
== END 2019-01-23 16:36 | DRG 92 ==
LOC: EC 10:13 → 4MS4W 15:09
PROVIDERS: ADMIT Internal Medicine; ATTEND Internal Medicine
PROC: 0HDRXZZ Extraction of Toe Nail, External Approach (ICD-10-PCS; principal; 2019-01-20)
PROC: 0H9RXZZ Drainage of Toe Nail, External Approach (ICD-10-PCS; 2019-01-20)
PROC: 0HBRXZZ Excision of Toe Nail, External Approach (ICD-10-PCS; 2019-01-20)
PROC: 0HBRXZZ Excision of Toe Nail, External Approach (ICD-10-PCS; 2019-01-20)
PROC: 0HBRXZZ Excision of Toe Nail, External Approach (ICD-10-PCS; 2019-01-20)
PROC: 0HBRXZZ Excision of Toe Nail, External Approach (ICD-10-PCS; 2019-01-20)
PROC: 0HBRXZZ Excision of Toe Nail, External Approach (ICD-10-PCS; 2019-01-20)
PROC: 0HBRXZZ Excision of Toe Nail, External Approach (ICD-10-PCS; 2019-01-20)
PROC: 0HBRXZZ Excision of Toe Nail, External Approach (ICD-10-PCS; 2019-01-20)
PROC: 0HBRXZZ Excision of Toe Nail, External Approach (ICD-10-PCS; 2019-01-20)
PROC: 0HBRXZZ Excision of Toe Nail, External Approach (ICD-10-PCS; 2019-01-20)
DX: G72.0 Drug-induced myopathy (principal); N18.4 Chronic kidney disease, stage 4 (severe); L89.90 Pressure ulcer of unspecified site, unspecified stage; E87.5 Hyperkalemia; B35.1 Tinea unguium; I12.9 Hypertensive chronic kidney disease with stage 1 through stage 4 chronic kidney disease, or unspecified chronic kidney disease; S91.201A Unspecified open wound of right great toe with damage to nail, initial encounter; R62.7 Adult failure to thrive; T46.6X5A Adverse effect of antihyperlipidemic and antiarteriosclerotic drugs, initial encounter; I44.0 Atrioventricular block, first degree; I25.10 Atherosclerotic heart disease of native coronary artery without angina pectoris; E78.5 Hyperlipidemia, unspecified; M17.0 Bilateral primary osteoarthritis of knee; M21.371 Foot drop, right foot; L60.3 Nail dystrophy; F17.210 Nicotine dependence, cigarettes, uncomplicated; F32.9 Major depressive disorder, single episode, unspecified; F41.9 Anxiety disorder, unspecified; I73.9 Peripheral vascular disease, unspecified; G89.29 Other chronic pain; R32 Unspecified urinary incontinence; E66.9 Obesity, unspecified; G47.9 Sleep disorder, unspecified; I25.2 Old myocardial infarction; Z68.30 Body mass index [BMI] 30.0-30.9, adult; Z95.5 Presence of coronary angioplasty implant and graft; Z79.82 Long term (current) use of aspirin; Z79.899 Other long term (current) drug therapy; Z87.19 Personal history of other diseases of the digestive system; W19.XXXA Unspecified fall, initial encounter
CPT/HCPCS: 36415; 71046; 80048; 80053; 81003; 82550; 82607; 83605; 83735; 84100; 84443; 84484; 85025; 85610; 85730; 86780; 93005; 96360; 96361; 99285

== ENCOUNTER 2019-12-12 09:06 | Inpatient (IN) | payer MEDICARE ==
[2019-12-12 09:54] LABS: Basophils # (A) 0.2 k/uL (0-0.2); Basophils % (A) 3 %; Eosinophils # (A) 0.4 k/uL (0-0.7); Eosinophils % (A) 6 %; HCT 39.3 % (34.0-46.0); HGB 11.9 gm/dL (11.4-16.0); Hypochromasia Slight; Lymphocytes # (A) 0.5 k/uL (1.0-4.8); Lymphocytes % (A) 8 %; MCH 30.9 pg (25.0-35.0); MCHC 30.4 g/dL (31.0-37.0); MCV 101.8 fL (80.0-100.0); Macrocytosis Slight; Mean Platelet Volume 9.1; Monocytes # (A) 0.4 k/uL (0-1.0); Monocytes % (A) 7 %; Neutrophils % (A) 76 %; Platelet Count 157 k/uL (150-450); RBC 3.86 m/uL (3.80-5.40); RDW 13.5 % (11.5-15.5); WBC 6.6 k/uL (3.8-10.6)
[2019-12-12 09:55] LABS: Appearance,Urine Clear (Clear); Bilirubin,Urine Negative (Negative); Blood,Urine Negative (Negative); Color,Urine Light Yellow; Glucose,Urine (UA) Negative (Negative); Ketones,Urine Negative (Negative); Leukocyte Esterase,Urine Negative (Negative); Nitrite,Urine Negative (Negative); PH, Urine 5.5 (5.0-8.0); Protein,Urine Trace (Negative); Specific Gravity,Urine 1.013 (1.001-1.035); Urobilinogen,Urine <2.0 mg/dL (<2.0)
[2019-12-12] MEDS ORDERED: IPRATROPIUM-ALBUTEROL 3 ML NEB INHALATION STA (10:00)
[2019-12-12 10:02] LABS: Partial Thromboplastin Time 24.3 sec (22.0-30.0); Prothrombin Time 10.1 sec (9.0-12.0)
[2019-12-12 10:03] LABS: Albumin 3.8 g/dL (3.5-5.0); Total Bilirubin 0.9 mg/dL (0.2-1.3); Total Protein 6.6 g/dL (6.3-8.2)
[2019-12-12 10:04] LABS: Potassium 5.7 mmol/L (3.5-5.1)
--- NOTE | 2019-12-12 10:24 | XR ---
EXAMINATION TYPE: XR chest 1V DATE OF EXAM: 12/12/2019 COMPARISON: 01/19/2019 HISTORY: Shortness of breath TECHNIQUE: Single frontal view of the chest is obtained. FINDINGS: Heart is enlarged there subsegmental changes at the bases. Mild interstitial prominence. N o pneumothorax. IMPRESSION: 1. Cardiomegaly correlate for mild venous congestion. Basilar consolidation may been the basis of ate lectasis or pleural effusion.
[2019-12-12] MEDS ORDERED: methylPREDNISolone SOD SUCCI 125 MG/2 ML VIAL IV STA (11:28)
--- NOTE | 2019-12-12 11:30 | ED ---
General Adult HPI - General Chief complaint: Shortness of Breath Stated complaint: Sob Time Seen by Provider: 12/12/19 09:46 Source: EMS, RN notes reviewed Mode of arrival: EMS Limitations: physical limitation - History of Present Illness Initial comments: 69-year-old female with a past medical history of hyperlipidemia, hypertension, CKD, statin-induced cardiomyopathy presents to the emergency department for a chief complaint of shortness of breath. Patient states she has felt wheezy for the past week. States it is causing her to be weak because it worsens on exertion. States she feels like she is going to fall because of it. She has had a mild cough but denies fevers. Patient does not have a history of COPD but does have a [id number] smoking history. Patient states that she is afraid she is going to fall at home because of the shortness of breath. Patient does not have inhalers at home.Patient has no other complaints at this time including chest pain, abdominal pain, nausea or vomiting, headache, or visual changes. - Related Data Home Medications Medication Instructions Recorded Confirmed Aspirin 325 mg PO DAILY 10/13/16 12/12/19 Carvedilol 25 mg PO BID 10/13/16 12/12/19 Lisinopril [Zestril] 10 mg PO QAM 10/13/16 12/12/19 amLODIPine [Norvasc] 5 mg PO QAM 10/13/16 12/12/19 Ondansetron HCl [Zofran] 8 mg PO Q12H PRN 12/12/19 12/12/19 Previous Rx's Medication Instructions Recorded HYDROcodone/APAP 7.5-325MG [[place] 1 tab PO Q6HR PRN #28 tab 01/23/19 7.5-325] Allergies Allergy/AdvReac Type Severity Reaction Status Date / Time No Known Allergies Allergy Verified 12/12/19 13:15 Review of Systems ROS Statement: Those systems with pertinent positive or pertinent negative responses have been documented in the HPI. ROS Other: All systems not noted in ROS Statement are negative. Past Medical History Past Medical History: Hyperlipidemia, Hypertension, Osteoarthritis (OA) Additional Past Medical History / Comment(s): diverticulitis, stated "has some balance issues d/t bad rt knee and lt hip" History of Any Multi-Drug Resistant Organisms: None Reported Past Surgical History: Bowel Resection, Heart Catheterization With Stent Additional Past Surgical History / Comment(s): Colostomy and reversal. 10-20-16 OPEN VENTRAL HERNIA REPAIR Past Anesthesia/Blood Transfusion Reactions: No Reported Reaction Date of Last Stent Placement:: 2010 Past Psychological History: No Psychological Hx Reported Smoking Status: Never smoker Past Alcohol Use History: Occasional Past Drug Use History: None Reported - Past Family History Mother Family Medical History: No Reported History Father Family Medical History: Myocardial Infarction ([place]) Additional Family Medical History / Comment(s): Father of a [place] at the age of 57yrs. General Exam Limitations: physical limitation General appearance: alert, in no apparent distress Head exam: Present: atraumatic, normocephalic, normal inspection Eye exam: Present: normal appearance, PERRL, EOMI. Absent: scleral icterus, conjunctival injection, periorbital swelling ENT exam: Present: normal exam, mucous membranes moist Neck exam: Present: normal inspection, full ROM. Absent: tenderness, meningismus, lymphadenopathy Respiratory exam: Present: wheezes, decreased breath sounds, prolonged expiratory. Absent: respiratory distress, rales, rhonchi, stridor Cardiovascular Exam: Present: regular rate, normal rhythm, normal heart sounds. Absent: systolic murmur, diastolic murmur, rubs, gallop, clicks GI/Abdominal exam: Present: soft, normal bowel sounds. Absent: distended, tenderness, guarding, rebound, rigid Neurological exam: Present: alert Course Vital Signs 12/12/19 12/12/19 12/12/19 09:08 09:12 10:18 Temperature 96.9 F L Pulse Rate 72 68 Respiratory 20 20 Rate Blood Pressure 141/88 O2 Sat by Pulse 97 Oximetry 12/12/19 12/12/19 10:39 12:44 Temperature Pulse Rate 65 80 Respiratory 16 Rate Blood Pressure 156/89 O2 Sat by Pulse 97 Oximetry Medical Decision Making - Medical Decision Making 69-year-old female presents for chief shortness of breath. This has been ongoing for a week. Patient states she feels wheezy. She does not have a history of COPD but does have a 50 pack per year smoking history. On examination patient does have wheezing noted in all lung fox with diminished breath sounds. Liver stable. Patient is on 2 L nasal cannula. CBC was unremarkable. CMP showed evidence of chronic kidney disease with a creatinine of 2.12 and a BUN of 86. This is near patient's baseline. It also showed a potassium of 5.7 which was hemolyzed. Repeat potassium 2.0. Again potassium is repeated and is 5.6, patient was initiated on Lasix given venous congestion and possible pleural effusion on chest x-ray and mildly elevated BNP of 4360. Troponin is negative. Patient likely experiencing COPD exacerbation given smoking history and lung sounds. She felt much better after receiving breathing treatment. She was started on steroids. She will be admitted for continued breathing treatments as she does not have nebulizer at home and feels too weak at this point to care for herself. She does not have help at home. - Lab Data Result diagrams: 12/12/19 09:43 12/12/19 12:10 Lab Results 12/12/19 12/12/19 12/12/19 Range/Units 09:43 09:43 09:43 WBC 6.6 (3.8-10.6) k/uL RBC 3.86 (3.80-5.40) m/uL Hgb 11.9 (11.4-16.0) gm/dL Hct 39.3 (34.0-46.0) % MCV 101.8 H (80.0-100.0) fL MCH 30.9 (25.0-35.0) pg MCHC 30.4 L (31.0-37.0) g/dL RDW 13.5 (11.5-15.5) % Plt Count 157 (150-450) k/uL Neutrophils % 76 % Lymphocytes % 8 % Monocytes % 7 % Eosinophils % 6 % Basophils % 3 % Neutrophils # 5.0 (1.3-7.7) k/uL Lymphocytes # 0.5 L (1.0-4.8) k/uL Monocytes # 0.4 (0-1.0) k/uL Eosinophils # 0.4 (0-0.7) k/uL Basophils # 0.2 (0-0.2) k/uL Hypochromasia Slight Macrocytosis Slight PT (9.0-12.0) sec INR (<1.2) APTT (22.0-30.0) sec Sodium 144 (137-145) mmol/L Potassium 5.7 H (3.5-5.1) mmol/L Chloride 114 H (98-107) mmol/L Carbon Dioxide 22 (22-30) mmol/L Anion Gap 8 mmol/L BUN 36 H (7-17) mg/dL Creatinine 2.12 H (0.52-1.04) mg/dL Est GFR (CKD-EPI)AfAm 27 (>60 ml/min/1.73 sqM) Est GFR (CKD-EPI)NonAf 23 (>60 ml/min/1.73 sqM) Glucose 95 (74-99) mg/dL Plasma Lactic Acid Carlos 1.0 (0.7-2.0) mmol/L Calcium 9.0 (8.4-10.2) mg/dL Magnesium (1.6-2.3) mg/dL Total Bilirubin 0.9 (0.2-1.3) mg/dL AST 23 (14-36) U/L ALT 15 (4-34) U/L Alkaline Phosphatase 111 (38-126) U/L Troponin I (0.000-0.034) ng/mL NT-Pro-B Natriuret Pep pg/mL Total Protein 6.6 (6.3-8.2) g/dL Albumin 3.8 (3.5-5.0) g/dL Urine Color Urine Appearance (Clear) Urine pH (5.0-8.0) Ur Specific [place] (1.001-1.035) Urine Protein (Negative) Urine Glucose (UA) (Negative) Urine Ketones (Negative) Urine Blood (Negative) Urine Nitrite (Negative) Urine Bilirubin (Negative) Urine Urobilinogen (<2.0) mg/dL Ur Leukocyte Esterase (Negative) 12/12/19 12/12/19 12/12/19 Range/Units 09:43 09:43 09:43 WBC (3.8-10.6) k/uL RBC (3.80-5.40) m/uL Hgb (11.4-16.0) gm/dL Hct (34.0-46.0) % MCV (80.0-100.0) fL MCH (25.0-35.0) pg MCHC (31.0-37.0) g/dL RDW (11.5-15.5) % Plt Count (150-450) k/uL Neutrophils % % Lymphocytes % % Monocytes % % Eosinophils % % Basophils % % Neutrophils # (1.3-7.7) k/uL Lymphocytes # (1.0-4.8) k/uL Monocytes # (0-1.0) k/uL Eosinophils # (0-0.7) k/uL Basophils # (0-0.2) k/uL Hypochromasia Macrocytosis PT 10.1 (9.0-12.0) sec INR 1.0 (<1.2) APTT 24.3 (22.0-30.0) sec Sodium (137-145) mmol/L Potassium (3.5-5.1) mmol/L Chloride (98-107) mmol/L Carbon Dioxide (22-30) mmol/L Anion Gap mmol/L BUN (7-17) mg/dL Creatinine (0.52-1.04) mg/dL Est GFR (CKD-EPI)AfAm (>60 ml/min/1.73 sqM) Est GFR (CKD-EPI)NonAf (>60 ml/min/1.73 sqM) Glucose (74-99) mg/dL Plasma Lactic Acid Carlos (0.7-2.0) mmol/L Calcium (8.4-10.2) mg/dL Magnesium (1.6-2.3) mg/dL Total Bilirubin (0.2-1.3) mg/dL AST (14-36) U/L ALT (4-34) U/L Alkaline Phosphatase (38-126) U/L Troponin I <0.012 (0.000-0.034) ng/mL NT-Pro-B Natriuret Pep pg/mL Total Protein (6.3-8.2) g/dL Albumin (3.5-5.0) g/dL Urine Color Light Yellow Urine Appearance Clear (Clear) Urine pH 5.5 (5.0-8.0) Ur Specific [place] 1.013 (1.001-1.035) Urine Protein Trace H (Negative) Urine Glucose (UA) Negative (Negative) Urine Ketones Negative (Negative) Urine Blood Negative (Negative) Urine Nitrite Negative (Negative) Urine Bilirubin Negative (Negative) Urine Urobilinogen <2.0 (<2.0) mg/dL Ur Leukocyte Esterase Negative (Negative) 12/12/19 12/12/19 12/12/19 Range/Units 10:36 10:51 12:00 WBC (3.8-10.6) k/uL RBC (3.80-5.40) m/uL Hgb (11.4-16.0) gm/dL Hct (34.0-46.0) % MCV (80.0-100.0) fL MCH (25.0-35.0) pg MCHC (31.0-37.0) g/dL RDW (11.5-15.5) % Plt Count (150-450) k/uL Neutrophils % % Lymphocytes % % Monocytes % % Eosinophils % % Basophils % % Neutrophils # (1.3-7.7) k/uL Lymphocytes # (1.0-4.8) k/uL Monocytes # (0-1.0) k/uL Eosinophils # (0-0.7) k/uL Basophils # (0-0.2) k/uL Hypochromasia Macrocytosis PT (9.0-12.0) sec INR (<1.2) APTT (22.0-30.0) sec Sodium (137-145) mmol/L Potassium 2.0 L* (3.5-5.1) mmol/L Chloride (98-107) mmol/L Carbon Dioxide (22-30) mmol/L Anion Gap mmol/L BUN (7-17) mg/dL Creatinine (0.52-1.04) mg/dL Est GFR (CKD-EPI)AfAm (>60 ml/min/1.73 sqM) Est GFR (CKD-EPI)NonAf (>60 ml/min/1.73 sqM) Glucose (74-99) mg/dL Plasma Lactic Acid Carlos (0.7-2.0) mmol/L Calcium (8.4-10.2) mg/dL Magnesium 1.0 L (1.6-2.3) mg/dL Total Bilirubin (0.2-1.3) mg/dL AST (14-36) U/L ALT (4-34) U/L Alkaline Phosphatase (38-126) U/L Troponin I (0.000-0.034) ng/mL NT-Pro-B Natriuret Pep 4360 pg/mL Total Protein (6.3-8.2) g/dL Albumin (3.5-5.0) g/dL Urine Color Urine Appearance (Clear) Urine pH (5.0-8.0) Ur Specific [place] (1.001-1.035) Urine Protein (Negative) Urine Glucose (UA) (Negative) Urine Ketones (Negative) Urine Blood (Negative) Urine Nitrite (Negative) Urine Bilirubin (Negative) Urine Urobilinogen (<2.0) mg/dL Ur Leukocyte Esterase (Negative) 12/12/19 Range/Units 12:10 WBC (3.8-10.6) k/uL RBC (3.80-5.40) m/uL Hgb (11.4-16.0) gm/dL Hct (34.0-46.0) % MCV (80.0-100.0) fL MCH (25.0-35.0) pg MCHC (31.0-37.0) g/dL RDW (11.5-15.5) % Plt Count (150-450) k/uL Neutrophils % % Lymphocytes % % Monocytes % % Eosinophils % % Basophils % % Neutrophils # (1.3-7.7) k/uL Lymphocytes # (1.0-4.8) k/uL Monocytes # (0-1.0) k/uL Eosinophils # (0-0.7) k/uL Basophils # (0-0.2) k/uL Hypochromasia Macrocytosis PT (9.0-12.0) sec INR (<1.2) APTT (22.0-30.0) sec Sodium (137-145) mmol/L Potassium 5.6 H (3.5-5.1) mmol/L Chloride (98-107) mmol/L Carbon Dioxide (22-30) mmol/L Anion Gap mmol/L BUN (7-17) mg/dL Creatinine (0.52-1.04) mg/dL Est GFR (CKD-EPI)AfAm (>60 ml/min/1.73 sqM) Est GFR (CKD-EPI)NonAf (>60 ml/min/1.73 sqM) Glucose (74-99) mg/dL Plasma Lactic Acid Carlos (0.7-2.0) mmol/L Calcium (8.4-10.2) mg/dL Magnesium (1.6-2.3) mg/dL Total Bilirubin (0.2-1.3) mg/dL AST (14-36) U/L ALT (4-34) U/L Alkaline Phosphatase (38-126) U/L Troponin I (0.000-0.034) ng/mL NT-Pro-B Natriuret Pep pg/mL Total Protein (6.3-8.2) g/dL Albumin (3.5-5.0) g/dL Urine Color Urine Appearance (Clear) Urine pH (5.0-8.0) Ur Specific [place] (1.001-1.035) Urine Protein (Negative) Urine Glucose (UA) (Negative) Urine Ketones (Negative) Urine Blood (Negative) Urine Nitrite (Negative) Urine Bilirubin (Negative) Urine Urobilinogen (<2.0) mg/dL Ur Leukocyte Esterase (Negative) Disposition Clinical Impression: COPD exacerbation, Shortness of breath, Congestive heart failure, Failure to thrive Disposition: ADMITTED IP TO THIS HOSP Is patient prescribed a controlled substance at d/c from ED?: No
[2019-12-12] MEDS ORDERED: HYDROmorphone 0.5 MG/0.5 ML SYRINGE IVP STA (11:42)
[2019-12-12] MEDS ORDERED: IPRATROPIUM-ALBUTEROL 3 ML NEB INHALATION PRN (11:57)
[2019-12-12] MEDS ORDERED: FUROSEMIDE 10 MG/ML 4 ML VIAL IV STA (11:58)
[2019-12-12] MEDS: MAGNESIUM SULFATE-D5W PMX 1 GM in DEXTROSE/WATER 1 100ML.BAG IVPB SCH ×2 (12:46→14:35)
[2019-12-12] MEDS ORDERED: ACETAMINOPHEN TAB 325 MG TAB PO PRN (18:00)
[2019-12-12] MEDS ORDERED: ONDANSETRON 4 MG/2 ML VIAL IVP PRN (18:00)
[2019-12-12] MEDS ORDERED: methylPREDNISolone SOD SUCCI 125 MG/2 ML VIAL IV SCH (18:00)
[2019-12-12] MEDS ORDERED: NALOXONE 0.4 MG/ML 1 ML VIAL IV PRN (18:00)
--- NOTE | 2019-12-12 18:04 | P.HPIM ---
History of Present Illness H&P Date: 12/12/19 Chief Complaint: Shortness of breath Patient is a 69-year-old female with a past medical history of coronary artery disease with prior heart attack and resultant ischemic cardiomyopathy with last known ejection fraction of 30%, hypertension, and chronic pain with ongoing debility who presented to the emergency department complaints of shortness of breath. In the ER she underwent an extensive evaluation. On arrival her vital signs were within normal limits. Laboratory analysis showed a potassium of 5.7, chloride 114, BUN 36, creatinine 2.2 which is at her baseline and consistent with a GFR of 23, BNP 4360 and magnesium of 1. Chest x-ray showed cardiomegaly with mild venous congestion and bibasilar consolidation. She was given IV magnesium, bronchodilators, and steroids. She is admitted for further management. Patient seen and examined at bedside. She reports shortness of breath with ambulation for the last 1 week that improves with rest. She also reports that she is getting anxiety about having to walk or sooner she walks due to her shortness of breath and. Falling. She also reports a dry cough for the last 1 week, she denies any wheezing. No chest discomfort, palpitations, or presyncope. She always sleeps on pillows at night and that is unchanged. No paroxysmal nocturnal dyspnea. She states that she has chronic lower extremity edema which she believes is unchanged. She has been seeing palliative care. She last saw the nurse practitioner Radha approximately one week ago. She did not call her prior to coming to the hospital today as she just felt so anxious about her breathing. Her primary care physician is Dr. Xiong and she last saw her in approximately May. Dr. Cameron is her performance specialist and she saw him last a few months ago. She denies any fevers, flu, nausea, vomiting, diarrhea, dysuria. She has chr onic lower extremity changes in her skin that had improved but are now severe again. She reports that she has limited ambulation at home and walks very short distances with a walker. She has a hospital bed. For any significant distance she is a wheelchair. She does not use any oxygen at home. Review of Systems Pertinent positives and negatives as discussed in HPI, a complete review of systems was performed and all other systems are negative. Past Medical History Past Medical History: Coronary Artery Disease (CAD), Heart Failure, Hyperlipidemia, Hypertension, Myocardial Infarction ([place]), Osteoarthritis (OA), Renal Disease Additional Past Medical History / Comment(s): Statin induced myopathy, arthritis in multiple joints, chronic pain especially in bilateral arms/legs, balance issues d/t R knee/L hip pain, pt believes she has some R foot drop, 2009 [place] with CHF and respiratory failure/vented, CKD stage IV, diverticulitis with bowel resection/colostomy with reversal, sinus issues, Last Myocardial Infarction Date:: 2009 History of Any Multi-Drug Resistant Organisms: None Reported Past Surgical History: Bowel Resection, Heart Catheterization With Stent, Hernia Repair, Tonsillectomy, Tubal Ligation Additional Past Surgical History / Comment(s): Bowel resection with colosto my/reversal, colonoscopies, open ventral hernia repair, D&C, Past Anesthesia/Blood Transfusion Reactions: No Reported Reaction Date of Last Stent Placement:: 2009 Smoking Status: Former smoker Additional History: quit tobacco dec 2018 50 pack year history, Walker, Hospital bed at home, No oxygen at home. - Past Family History Mother Family Medical History: Congestive Heart Failure (CHF) Additional Family Medical History / Comment(s): Mother of CHF in her early 80s. Father Family Medical History: Myocardial Infarction ([place]) Additional Family Medical History / Comment(s): Father of a [place] at the age of 57yrs. Medications and Allergies Home Medications Medication Instructions Recorded Confirmed Type RX: Aspirin 325 mg PO DAILY 10/13/16 12/12/19 History RX: Carvedilol 25 mg PO BID 10/13/16 12/12/19 History RX: Lisinopril [Zestril] 10 mg PO QAM 10/13/16 12/12/19 History RX: amLODIPine [Norvasc] 5 mg PO QAM 10/13/16 12/12/19 History RX: HYDROcodone/APAP 7.5-325MG 1 tab PO Q6HR PRN #28 tab 01/23/19 12/12/19 Rx [[place] 7.5-325] Ondansetron HCl [Zofran] 8 mg PO Q12H PRN 12/12/19 12/12/19 History Allergies Allergy/AdvReac Type Severity Reaction Status Date / Time No Known Allergies Allergy Verified 12/12/19 13:15 Physical Exam Osteopathic Statement: *. No significant issues noted on an osteopathic str uctural exam other than those noted in the History and Physical/Consult. Vitals: Vital Signs Temp Pulse Resp BP Pulse Ox 12/12/19 12:44 80 16 156/89 97 12/12/19 10:39 65 12/12/19 10:18 68 12/12/19 09:12 20 12/12/19 09:08 96.9 F L 72 20 141/88 97 Intake and Output 12/12/19 12/12/19 12/12/19 06:59 14:59 22:59 Other: Weight 95.254 kg General: Obese, ill appearing, disheveled, no distress, appears at stated age, Derm: bilateral lower extremities with think, dry ,scaling skin, and severe onchomycosis, no unusual ecchymoses, warm, dry Head: atraumatic, normocephalic, symmetric Eyes: EOMI, no lid lag, anicteric sclera, pupils equal round reactive to light ENT: Nose and ears atraumatic, no thrush, no pharyngeal erythema Neck: No thyromegaly, no cervical lymphadenopathy, trachea midline, supple Mouth: no lip lesion, mucus membranes moist Cardiovascular: S1S2 reg, no murmur, positive posterior tibial pulse bilateral, no edema, capillary refill less than 2 seconds Lungs: Decrease bs bilateral with faint crackles, no rhonchi, no rales , + accessory muscle use when moving Abdominal: soft, nontender to palpation, no guarding, no appreciable organomegaly, normal bowel sounds Ext: no gross muscle atrophy, muscle strength 5 out of 5 in upper and 3/5 in lower extremities grossly, + slight flexion contractures to b/l LE, Neuro: CN II-XI grossly intact, light touch intact all 4 extremities, finger to nose within normal limits, Psych: Alert, oriented, appropriate affect Results CBC & Chem 7: 12/12/19 09:43 12/12/19 12:10 Labs: Abnormal Lab Results - Last 24 Hours (Table) 12/12/19 12/12/19 12/12/19 Range/Units 09:43 09:43 09:43 MCV 101.8 H (80.0-100.0) fL MCHC 30.4 L (31.0-37.0) g/dL Lymphocytes # 0.5 L (1.0-4.8) k/uL Potassium 5.7 H (3.5-5.1) mmol/L Chloride 114 H (98-107) mmol/L BUN 36 H (7-17) mg/dL Creatinine 2.12 H (0.52-1.04) mg/dL Magnesium (1.6-2.3) mg/dL Urine Protein Trace H (Negative) 12/12/19 12/12/19 12/12/19 Range/Units 10:51 12:00 12:10 MCV (80.0-100.0) fL MCHC (31.0-37.0) g/dL Lymphocytes # (1.0-4.8) k/uL Potassium 2.0 L* 5.6 H (3.5-5.1) mmol/L Chloride (98-107) mmol/L BUN (7-17) mg/dL Creatinine (0.52-1.04) mg/dL Magnesium 1.0 L (1.6-2.3) mg/dL Urine Protein (Negative) Abdominal x-ray: report reviewed, image reviewed (cephalization wtih bilateral atelectasis vs pleural effusion) Thrombosis Risk Factor Assmnt - DVT/VTE Prophylaxis DVT/VTE Prophylaxis: Pharmacologic Prophylaxis ordered - Choose All That Apply Any of the Below Risk Factors Present?: Yes Each Factor Represents 1 point: Abnormal pulmonary function (COPD), Obesity (BMI >25), Swollen legs (current) Other Risk Factors: Yes Each Risk Factor Represents 2 Points: Age 61-74 years Other congenital or acquired thrombophilia - If yes, enter type in comment: No Thrombosis Risk Factor Assessment Total Risk Factor Score: 5 Thrombosis Risk Factor Assessment Level: High Risk Assessment and Plan Assessment: Acute exacerbation of systolic CHF with EF 30% -Strict I's and O's, daily weights -Lasix 60 twice a day -Consult cardio -Echocardiogram in a.m. -Hold lisinopril secondary to hyperkalemia, continue with Coreg Hyperkalemia, mild -Hold lisinopril, Lasix -Repeat in a.m. Severe hypomagnesemia -Place IV -Recheck in a.m. Morbid obesity - weight loss CKD IV, baseline Cr 2.3 - Follow closely with lasix use - avoid additional nephrotoxic agents - follow Cr Functional debility - PT/OT - suspect will need SNF on discharge. Chronic: HTN HLD CAD Arthritis The patient is admitted with an anticipated greater than 2 midnight stay for evaluation of congestive heart failure. Surrogate decision-maker: CODE STATUS:DNR per patient, has had multiple discussion with Radha DVT prophylaxis: Heparin Discussed with: Patient, nursing, ED physician Anticipated discharge date: 2-[address]: SNF A total of 70 minutes was spent on the care of this complex patient more than 50% of the time was spent in counseling and care coordination.
[2019-12-12] MEDS: AMMONIUM LACTATE 12% LOTION 225 GM BTL TOPICAL SCH (20:58)
[2019-12-12] MEDS: FUROSEMIDE 10 MG/ML 10 ML VIAL IV SCH (20:58)
[2019-12-12] MEDS: HYDROcodone/APAP 7.5-325MG 1 EACH TAB PO PRN (20:59)
[2019-12-12] MEDS ORDERED: FUROSEMIDE 10 MG/ML 2 ML VIAL IV SCH (21:00)
[2019-12-12] MEDS: MELATONIN 3 MG TABLET PO PRN (21:00)
[2019-12-13 08:04] LABS: Calcium 9.3 mg/dL (8.4-10.2); Magnesium 2.4 mg/dL (1.6-2.3); Phosphorus 3.7 mg/dL (2.5-4.5); Potassium 4.7 mmol/L (3.5-5.1)
[2019-12-13] MEDS: HYDROcodone/APAP 7.5-325MG 1 EACH TAB PO PRN ×3 (08:58→23:04)
[2019-12-13] MEDS: FUROSEMIDE 10 MG/ML 10 ML VIAL IV SCH (08:58)
[2019-12-13] MEDS: AMMONIUM LACTATE 12% LOTION 225 GM BTL TOPICAL SCH ×2 (08:59→21:06)
[2019-12-13 09:28] LABS: T4, Free (Free Thyroxine) 1.89 ng/dL (0.78-2.19)
--- NOTE | 2019-12-13 09:46 | ECHOF ---
Referral Reason:CHF MEASUREMENTS -------- HEIGHT: 170.2 cm WEIGHT: 95.3 kg BP: 156/89 IVSd: 1.3 cm (0.6 - 1.1) LVIDd: 5.6 cm (3.9 - 5.3) LVPWd: 1.1 cm (0.6 - 1.1) IVSs: 1.3 cm LVIDs: 4.5 cm LVPWs: 1.3 cm LAESV Index (A-L): 49.99 ml/m IVSd: 0.9 cm (0.6 - 1.1) LVIDd: 6.7 cm (3.9 - 5.3) LVPWd: 1.3 cm (0.6 - 1.1) IVSs: 1.5 cm LVIDs: 5.6 cm LVPWs: 2.0 cm EDV(Teich): 230 ml ESV(Teich): 156 ml EF(Teich): 32 % %FS: 16 % SV(Teich): 74 ml MV E Steve: 0.98 m/s MV DecT: 230 ms MV A Steve: 0.36 m/s MV E/A Ratio: 2.73 RAP: 20.00 mmHg RVSP: 48.56 mmHg FINDINGS -------- Atrial fibrillation. This was a technically difficult study with suboptimal views. Pt. Very Sob Pt has severe COPD. Si tting up. The left ventricle is mildly dilated. There is mild concentric left ventricular hypertrophy. Over all left ventricular systolic function is moderate-severely impaired with, an EF between 30 - 35 %. Increased Lap Grade II Diastolic Dysfunction. Basal inferior LV wall motion is normal. Mid infer ior LV wall motion is hypokinetic. Apical anterior LV wall motion is hypokinetic. Apical latera l LV wall motion is hypokinetic. Apical inferior LV wall motion is hypokinetic. Apical septum L V wall motion is hypokinetic. The RV was not well visualized. LA is severely dilated >40 ml/m2 The right atrium was not well visualized. 5.0mg of Lumason was utilized for enhancement of images Interatrial and interventricular septum intact. The aortic valve was not well visualized. There is no evidence of aortic regurgitation. There is no evidence of aortic stenosis. Moderate mitral regurgitation is present. Moderate tricuspid regurgitation present. There is moderate pulmonary hypertension. The right augusto tricular systolic pressure, as measured by Doppler, is 48.56mmHg. The pulmonic valve was not well visualized. AO ROOT Not well visualized The inferior vena cava is dilated with no significant inspiratory collapse which is consistent estima yolis right atrial pressure of >20 mmHg. There is a trivial pericardial effusion present. CONCLUSIONS -------- 1. Atrial fibrillation. 2. This was a technically difficult study with suboptimal views. 3. Pt. Very Sob 4. Pt has severe COPD. Sitting up. 5. The left ventricle is mildly dilated. 6. There is mild concentric left ventricular hypertrophy. 7. Increased Lap Grade II Diastolic Dysfunction. 8. Basal inferior LV wall motion is normal. 9. Apical anterior LV wall motion is hypokinetic. 10. Apical lateral LV wall motion is hypokinetic. 11. Apical inferior LV wall motion is hypokinetic. 12. Apical septum LV wall motion is hypokinetic. 13. The RV was not well visualized. 14. LA is severely dilated >40 ml/m2 15. The right atrium was not well visualized. 16. 5.0mg of Lumason was utilized for enhancement of images 17. Interatrial and interventricular septum intact. 18. The aortic valve was not well visualized. 19. There is no evidence of aortic regurgitation. 20. There is no evidence of aortic stenosis. 21. Moderate mitral regurgitation is present. 22. Moderate tricuspid regurgitation present. 23. There is moderate pulmonary hypertension. 24. The right ventricular systolic pressure, as measured by Doppler, is 48.56mmHg. 25. The pulmonic valve was not well visualized. 26. The inferior vena cava is dilated with no significant inspiratory collapse which is consistent es timated right atrial pressure of >20 mmHg. 27. There is a trivial pericardial effusion present. FOOD SERVICE ATTENDANT: Carly Canchola, SHASHA
--- NOTE | 2019-12-13 11:30 | P.CONS ---
History of Present Illness - Reason for Consult Consult date: 12/13/19 wound care - History of Present Illness This is a 69-year-old pleasant female being seen on for dry scaly skin to the bilateral lower extremities. Patient states that the skin has been that way for many years. She tried multiple lotions with no success. 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 At this time patient has no open lesions. Bilateral anterior legs show sick dry scaly skin and excoriation from itching. No drainage at this time. Patient's past medical history significant for coronary artery disease, heart failure, hyperlipidemia, hypertension, myocardial infarction, osteoarthritis, chronic kidney disease stage IV, diverticulosis, and statin-induced myopathy. Review of Systems Review Of Systems: Constitutional: No fever, no chills, no night sweats. No weight change. No weakness, fatigue or lethargy. No daytime sleepiness. Integumentary: No wounds, no lesions. Reports rash and pruritus. No unusual bruising. No change in hair reports onchomycosis. Past Medical History Past Medical History: Coronary Artery Disease (CAD), Heart Failure, Hyperlipidemia, Hypertension, Myocardial Infarction ([place]), Osteoarthritis (OA), Renal Disease Additional Past Medical History / Comment(s): Statin induced myopathy, arthritis in multiple joints, chronic pain especially in bilateral arms/legs, balance issues d/t R knee/L hip pain, pt believes she has some R foot drop, 2009 [place] with CHF and respiratory failure/vented, CKD stage IV, diverticulitis with bowel resection/colostomy with reversal, sinus issues, Last Myocardial Infarction Date:: 2009 History of Any Multi-Drug Resistant Organisms: None Reported Past Surgical History: Bowel Resection, Heart Catheterization With Stent, Hernia Repair, Tonsillectomy, Tubal Ligation Additional Past Surgical History / Comment(s): Bowel resection with colost [place]apha/reversal, colonoscopies, open ventral hernia repair, D&C, Past Anesthesia/Blood Transfusion Reactions: No Reported Reaction Date of Last Stent Placement:: 2009 Smoking Status: Former smoker - Past Family History Mother Family Medical History: Congestive Heart Failure (CHF) Additional Family Medical History / Comment(s): Mother of CHF in her early 80s. Father Family Medical History: Myocardial Infarction ([place]) Additional Family Medical History / Comment(s): Father of a [place] at the age of 57yrs. Medications and Allergies Home Medications Medication Instructions Recorded Confirmed Type Aspirin 325 mg PO DAILY 10/13/16 12/12/19 History Carvedilol 25 mg PO BID 10/13/16 12/12/19 History Lisinopril [Zestril] 10 mg PO QAM 10/13/16 12/12/19 History amLODIPine [Norvasc] 5 mg PO QAM 10/13/16 12/12/19 History HYDROcodone/APAP 7.5-325MG [[place] 1 tab PO Q6HR PRN #28 tab 01/23/19 12/12/19 Rx 7.5-325] Ondansetron HCl [Zofran] 8 mg PO Q12H PRN 12/12/19 12/12/19 History Allergies Allergy/AdvReac Type Severity Reaction Status Date / Time No Known Allergies Allergy Verified 12/12/19 13:15 Physical Exam Vitals: Vital Signs Temp Pulse Pulse Resp BP BP Pulse Ox 12/13/19 04:33 97.8 F 80 18 148/79 94 L 12/12/19 23:00 97.8 F 85 20 147/80 95 12/12/19 16:00 82 20 12/12/19 13:45 98.1 F 82 20 147/87 94 L 12/12/19 12:44 80 16 156/89 97 Intake and Output 12/12/19 12/13/19 12/13/19 22:59 06:59 14:59 Intake Total 300 Output Total 450 1450 Balance -450 -1150 Intake: Oral 300 Output: Urine 450 1450 Other: # Voids 2 Weight 32.9 kg 114 kg Physical exam: General Appearance: Alert, cooperative, no distress, appears stated age. Skin: See HPI thickl onchomycosis ,all other Skin color, texture, tugor decreased, no rashes or lesions. Neurologic: Alert oriented x3 Results CBC & Chem 7: 12/12/19 09:43 12/13/19 07:07 Labs: Abnormal Lab Results - Last 24 Hours (Table) 12/12/19 12/12/19 12/12/19 Range/Units 10:51 12:00 12:10 Potassium 2.0 L* 5.6 H (3.5-5.1) mmol/L Chloride (98-107) mmol/L BUN (7-17) mg/dL Creatinine (0.52-1.04) mg/dL Glucose (74-99) mg/dL Magnesium 1.0 L (1.6-2.3) mg/dL TSH (0.465-4.680) mIU/L 12/13/19 Range/Units 07:07 Potassium (3.5-5.1) mmol/L Chloride 108 H (98-107) mmol/L BUN 40 H (7-17) mg/dL Creatinine 2.21 H (0.52-1.04) mg/dL Glucose 154 H (74-99) mg/dL Magnesium 2.4 H (1.6-2.3) mg/dL TSH 0.322 L (0.465-4.680) mIU/L Assessment and Plan (1) Dry skin dermatitis Current Visit: Yes Status: Acute Code(s): L85.3 - XEROSIS CUTIS SNOMED Code(s): 241807082 Plan: Patient has significant dermatitis to the lower extremities. Discussed with patient we will utilize bag balm Wednesday and Wednesday wrapping with 2 layer Tubigrip. Apply callus obtain Wednesday and Wednesday wrapping with 2 layer Tubigrip. Legs are washed daily with warm soapy water and gently removing any loose dry skin. Discussed with patient that at home she may use olive oil or coconut oil nightly to her skin washing the next morning with warm soapy water and applying hydrating lotion such as Eucerin. Patient verbalized understanding. Discussed with patient the importance that scratching may cause open ulcerations. At this time the patient has no open ulcerations. If ulcerations to occur discussed with patient to utilize the wound care center to assist in healing. Patient verbalized understanding. Thank you for the consultation. Any questions please contact the wound care center DNP note has been reviewed and discussed with Dr. Farris and the impression and plan of care has been directed as dictated.
--- NOTE | 2019-12-13 12:48 | P.PN ---
Subjective Progress Note Date: 12/13/19 Principal diagnosis: shortness of breath Patient is a 69-year-old female with a past medical history of coronary artery disease with prior heart attack and resultant ischemic cardiomyopathy with last known ejection fraction of 30%, hypertension, and chronic pain with ongoing debility who presented to the emergency department complaints of shortness of breath. In the ER she underwent an extensive evaluation. On arrival her vital signs were within normal limits. Laboratory analysis showed a potassium of 5.7, chloride 114, BUN 36, creatinine 2.2 which is at her baseline and consistent with a GFR of 23, BNP 4360 and magnesium of 1. Chest x-ray showed cardiomegaly with mild venous congestion and bibasilar consolidation. She was given IV magnesium, bronchodilators, and steroids. She was admitted for further management. Due to her elevated BNP, increased vascular markings on CXR, and lowe extremity edema she was found to have acute exacerbation of CHF. She was started on IV lasix twice daily. Patient seen and examined at bedside. Her breathing has improved overnight and she is feeling less dyspneic, lower extremity edema somewhat better. She does report difficulty transferring from bed to the bedside commode with physical therapy. I discussed with her, her , and her sister chloro present around that she likely will need nursing home facility on discharge secondary to need for help with transfers. Her states he feels last time she went to medical [place] she did worse and not better. We discussed that currently she is so weak she is unable to transfer herself and likely would need 24 hour care which is not provided through home health that could be purchased for additional monies. I've asked him to consider how we can meet her needs for help with transfer and we will rediscuss tomorrow. Objective - Vital Signs Vital signs: Vital Signs Temp 97.8 F 12/13/19 04:33 Pulse 80 12/13/19 04:33 Resp 18 12/13/19 08:00 BP 148/79 12/13/19 04:33 Pulse Ox 94 L 12/13/19 04:33 Intake & Output 12/12/19 12/13/19 12/13/19 18:59 06:59 18:59 Intake Total 540 300 Output Total 1900 Balance 540 -1600 Weight 32.9 kg 114 kg Intake: Oral 540 300 Output: Urine 1900 Other: # Voids 2 2 - Exam General: non toxic, no distress, appears at stated age, obese Derm: warm, dry Head: atraumatic, normocephalic, symmetric Eyes: EOMI, no lid lag, anicteric sclera Mouth: no lip lesion, mucus membranes moist Cardiovascular: S1S2 reg, no murmur, positive posterior tibial pulse bilateral, Lungs: decreased breath sounds bilateral with wheezing, no rhonchi, no rales, no accessory muscle use Abdominal: soft, nontender to palpation, no guarding, no appreciable organomegaly Ext: no gross muscle atrophy, no edema, no contractures Neuro: CN II-XI grossly intact, no focal neuro deficits Psych: Alert, oriented, appropriate affect - Labs CBC & Chem 7: 12/12/19 09:43 12/13/19 07:07 Labs: Abnormal Lab Results - Last 24 Hours (Table) 12/12/19 12/13/19 Range/Units 12:10 07:07 Potassium 5.6 H (3.5-5.1) mmol/L Chloride 108 H (98-107) mmol/L BUN 40 H (7-17) mg/dL Creatinine 2.21 H (0.52-1.04) mg/dL Glucose 154 H (74-99) mg/dL Magnesium 2.4 H (1.6-2.3) mg/dL TSH 0.322 L (0.465-4.680) mIU/L Assessment and Plan Assessment: Acute exacerbation of systolic CHF with EF 30% -Strict I's and O's, daily weights -Lasix 60 IV twice a day -Await cardio recs -Echocardiogram in a.m. -Hold lisinopril cardio is considering entresto, continue with Coreg Morbid obesity - weight loss CKD IV, baseline Cr 2.3 - Follow closely with lasix use - avoid additional nephrotoxic agents - follow Cr Functional debility - PT/OT - suspect will need SNF on discharge. Hyperkalemia, resolved Severe hypomagnesemia, resolved Chronic: HTN HLD CAD Arthritis DVT prophylaxis: Heparin Discussed with: Patient, nursing, family Anticipated discharge date: 1-[address]: SNF A total of 35 minutes was spent on the care of this complex patient more than 50% of the time was spent in counseling and care coordination.
[2019-12-13] MEDS: CARVEDILOL 12.5 MG TAB PO SCH ×2 (13:02→18:02)
[2019-12-13] MEDS: PETROLAT,WHITE/LAN/8-HYDROXYQU 227 GM OINT TOPICAL SCH (13:04)
--- NOTE | 2019-12-13 14:32 | P.CRDCN ---
History of Present Illness History of present illness: HISTORY OF PRESENTING ILLNESS This is a pleasant 69-year-old female past medical history significant for coronary artery disease, anterior wall myocardial infarction, stent placeme nt to the mid LAD, ischemic cardiomyopathy, hypertension, chronic systolic heart failure, chronic kidney disease, former nicotine dependence and dyslipidemia. She has seen Dr. Cameron in the office last in 2018. At that time he recommended possible consideration for ICD implantation. At that time the patient was not interested in pursuing this option. We have been asked to see in consultation fo r heart failure. She presented to the hospital with symptoms of progressively worsening shortness of breath and wheezing over the previous week. She also feels as though she has been increasingly weak and unsteady on her feet. She denies chest pain, dizziness or palpitations. She also denies PND, orthopnea, cough or fever/chills at home. She is currently on a palliative care program at home. Echocardiogram obtained reveals impaired LV systolic function with ejection fraction 30-35%, basal inferior, apical anterior, apical lateral, apical inferior and apical septal wall motion hypokinesia, severely dilated left atrium, moderate MR, moderate TR and moderate pulmonary hypertension with an RVSP of 40 mmHg. DIAGNOSTICS EKG reveals atrial fibrillation with heart rate of 66. Chest xray cardiomegaly and mild venous congestion, basilar consolidation the basis of atelectasis. Laboratory reviewed, WBC 6.6, hemoglobin 11.9, platelets 157, sodium 143, potassium on admission 5. 7 repeat today 4.7, creatinine 2.21 with a GFR of 22, magnesium 2.4, cardiac enzymes negative 1, NT proBNP 4360, TSH 0.3-2 and free T4 1 0.89. Current cardiac medications include aspirin 325 mg daily, coreg 25 mg BID, lisinopril 10 mg daily and amlodipine 5 mg daily. REVIEW OF SYSTEMS At the time of my exam: CONSTITUTIONAL: Denies fever or chills. CARDIOVASCULAR: Denies chest pain, shortness of breath, orthopnea, PND or palpitations. RESPIRATORY: Denies cough. GASTROINTESTINAL: Denies abdominal pain, diarrhea, constipation, nausea or vomiting. MUSCULOSKELETAL: Denies myalgias. NEUROLOGIC: Denies numbness, tingling or weakness. ENDOCRINE: Denies fatigue, weight change, polydipsia or polyurina. GENITOURINARY: Denies burning, hematuria or urgency with micturation. HEMATOLOGIC: Denies history of anemia or bleeding. PHYSICAL EXAMINATION Blood pressure 148/79 heart rate 80 afebrile and maintaining oxygen saturation on nasal cannula. CONSTITUTIONAL: No apparent distress. HEENT: Head is normocephalic. Pupils are equal, round. Sclerae anicteric. Mucous membranes of the mouth are moist. No JVD. No carotid bruit. CHEST EXAMINATION: Bibasilar rales. No wheezes or rhonchi. No chest wall tenderness is noted on palpation or with deep breathing. HEART EXAMINATION: Irregular rate and rhythm. S1, S2 heard. Systolic ejection murmur at the left sternal border, no gallops or rub. ABDOMEN: Soft, nontender. Positive bowel sounds. EXTREMITIES: 1+ peripheral pulses, bilateral lower extremity 2+ pitting edema with thick dry scaly patches and area of weeping. NEUROLOGIC EXAMINATION: Patient is awake, alert and oriented x3. ASSESSMENT Acute on chronic systolic heart failure, EF 30-35% Ischemic cardiomyopathy, declined AICD placement in the past. History of coronary artery disease in the setting of an acute anterior wall IA with stent placement to the mid LAD 2009 Hypertension Dyslipdiemia with history of statin induced myopathy Paroxysmal atrial fibrillation, new diagnosis. Controlled ventricular rates Pulmonary hypertension PLAN Hold lisinopril and initiate entresto 24/26 mg BID to start tomorrow. We will watch the renal function and potassium closely over the next 48-72 hours for changes. Initiated on eliquis 5 mg BID for thromboembolic protection. Resume coreg 25 mg BID and discontinue amlodipine. Discontinue aspirin given eliquis as her IA was over 10 yrs ago. Continue IV diuresis. Further recommendations to follow based on clinical course. Thank you kindly for this consultation. Nurse Practitioner note has been reviewed, I agree with a documented findings and plan of care. Patient was seen and examined. Past Medical History Past Medical History: Coronary Artery Disease (CAD), Heart Failure, Hyperlipidemia, Hypertension, Myocardial Infarction ([place]), Osteoarthritis ([place]), Renal Disease Additional Past Medical History / Comment(s): Statin induced myopathy, arthritis in multiple joints, chronic pain especially in bilateral arms/legs, balance issues d/t R knee/L hip pain, pt believes she has some R foot drop, 2010 [place] with CHF and respiratory failure/vented, CKD stage IV, diverticulitis with bowel re section/colostomy with reversal, sinus issues, Last Myocardial Infarction Date:: 2009 History of Any Multi-Drug Resistant Organisms: None Reported Past Surgical History: Bowel Resection, Heart Catheterization With Stent, Hernia Repair, Tonsillectomy, Tubal Ligation Additional Past Surgical History / Comment(s): Bowel resection with colostomy/reversal, colonoscopies, open ventral hernia repair, D&C, Past Anesthesia/Blood Transfusion Reactions: No Reported Reaction Date of Last Stent Placement:: 2009 Smoking Status: Former smoker - Past Family History Mother Family Medical History: Congestive Heart Failure (CHF) Additional Family Medical History / Comment(s): Mother of CHF in her early 80s. Father Family Medical History: Myocardial Infarction ([place]) Additional Family Medical History / Comment(s): Father of a [place] at the age of 57yrs. Medications and Allergies Home Medications Medication Instructions Recorded Confirmed Type Aspirin 325 mg PO DAILY 10/13/16 12/12/19 History Carvedilol 25 mg PO BID 10/13/16 12/12/19 History Lisinopril [Zestril] 10 mg PO QAM 10/13/16 12/12/19 History amLODIPine [Norvasc] 5 mg PO QAM 10/13/16 12/12/19 History HYDROcodone/APAP 7.5-325MG [[place] 1 tab PO Q6HR PRN #28 tab 01/23/19 12/12/19 Rx 7.5-325] Ondansetron HCl [Zofran] 8 mg PO Q12H PRN 12/12/19 12/12/19 History Allergies Allergy/AdvReac Type Severity Reaction Status Date / Time No Known Allergies Allergy Verified 12/12/19 13:15 Physical Exam Vitals: Vital Signs Temp Pulse Resp BP Pulse Ox 12/13/19 08:00 18 12/13/19 04:33 97.8 F 80 18 148/79 94 L 12/12/19 23:00 97.8 F 85 20 147/80 95 12/12/19 16:00 82 20 Intake and Output 12/12/19 12/13/19 12/13/19 22:59 06:59 14:59 Intake Total 300 Output Total 450 1450 Balance -450 -1150 Intake: Oral 300 Output: Urine 450 1450 Other: # Voids 2 Weight 32.9 kg 114 kg Results 12/12/19 09:43 12/13/19 07:07 Comprehensive Metabolic Panel 12/13/19 Range/Units 07:07 Sodium 143 (137-145) mmol/L Potassium 4.7 (3.5-5.1) mmol/L Chloride 108 H (98-107) mmol/L Carbon Dioxide 26 (22-30) mmol/L BUN 40 H (7-17) mg/dL Creatinine 2.21 H (0.52-1.04) mg/dL Glucose 154 H (74-99) mg/dL Calcium 9.3 (8.4-10.2) mg/dL Current Medications Generic Name Dose Route Start Last Admin Trade Name Freq PRN Reason Stop Dose Admin Acetaminophen 650 mg 12/12/19 18:00 Tylenol Tab PO Q6HR PRN Mild Pain or Fever > 100.5 Hydrocodone Bitart/Acetaminophen 1 each 12/12/19 19:40 12/13/19 08:58 [place] 7.5-325 PO 1 each Q6HR PRN Administration pain Albuterol/Ipratropium 3 ml 12/12/19 11:57 Duoneb 0.5 Mg-3 Mg/3 Ml Soln INHALATION RT-Q4H PRN Shortness Of Breath Or Wheezing Aspirin 81 mg 12/14/19 09:00 Aspirin PO DAILY [facility] Calamine/Phenol 1 applic 12/14/19 09:00 Calmoseptine Oint TOPICAL TuThSa [facility] Carvedilol 25 mg 12/13/19 11:00 12/13/19 13:02 Coreg PO 25 mg BID-W/MEALS DIMPLE Administration Furosemide 60 mg 12/14/19 09:00 Lasix IV DAILY DIMPLE Hydroxyquinoline/Petrolatum/Lanolin 1 gm 12/13/19 09:00 12/13/19 13:04 Bag [place] TOPICAL 1 gm SuMoWeFr DIMPLE Administration Lactic Acid 1 applic 12/12/19 21:00 12/13/19 08:59 Lac-Hydrin 12% TOPICAL 1 applic BID DIMPLE Administration Melatonin 3 mg 12/12/19 18:00 12/12/19 21:00 Melatonin PO 3 mg HS PRN Administration Insomnia Naloxone HCl 0.2 mg 12/12/19 18:00 Narcan IV Q2M PRN Opioid Reversal Ondansetron HCl 4 mg 12/12/19 18:00 Zofran IVP Q8HR PRN Nausea And Vomiting Sacubitril/Valsartan 1 each 12/14/19 09:00 Entresto 24 Mg-26 Mg Tablet PO BID DIMPLE Intake and Output 12/12/19 12/13/19 12/13/19 22:59 06:59 14:59 Intake Total 300 Output Total 450 1450 Balance -450 -1150 Intake: Oral 300 Output: Urine 450 1450 Other: # Voids 2 Weight 32.9 kg 114 kg 12/12/19 09:43 12/13/19 07:07
[2019-12-13] MEDS ORDERED: ASPIRIN 325 MG TAB PO SCH (16:03)
[2019-12-13 16:07] VITALS: BMI 39.3
[2019-12-13] MEDS: APIXABAN 5 MG TAB PO SCH (21:06)
[2019-12-13] MEDS: MELATONIN 3 MG TABLET PO PRN (23:04)
[2019-12-14 08:09] LABS: Magnesium 2.3 mg/dL (1.6-2.3); Potassium 4.7 mmol/L (3.5-5.1)
[2019-12-14] MEDS: CARVEDILOL 12.5 MG TAB PO SCH ×2 (08:38→17:05)
[2019-12-14] MEDS: FUROSEMIDE 10 MG/ML 10 ML VIAL IV SCH (08:39)
[2019-12-14] MEDS: HYDROcodone/APAP 7.5-325MG 1 EACH TAB PO PRN ×3 (08:39→20:21)
[2019-12-14] MEDS: APIXABAN 5 MG TAB PO SCH ×2 (08:39→20:22)
[2019-12-14] MEDS: SACUBITRIL/VALSARTAN 24 MG-26 MG TABLET PO SCH ×2 (08:40→20:22)
[2019-12-14] MEDS ORDERED: ASPIRIN 81 MG PO SCH (09:00)
[2019-12-14] MEDS ORDERED: MENTHOL-ZINC OXIDE OINT 113 GM TUBE TOPICAL SCH (09:00)
--- NOTE | 2019-12-14 14:10 | P.PN ---
Subjective HISTORY OF PRESENTING ILLNESS This is a pleasant 69-year-old female past medical history significant for coronary artery disease, anterior wall myocardial infarction, stent placement to the mid LAD, ischemic cardiomyopathy, hypertension, chronic systolic heart failure, chronic kidney disease, former nicotine dependence and dyslipidemia. She has seen Dr. Cameron in the office last in 2018. She is seen and examined resting comfortably in no acute distress. She is feeling like her breathing is improving slowly. No chest pain, dizziness or palpitations. Blood pressure 119/81 heart rate 82 afebrile and maintaining oxygen saturation on room air. Telemetry tracings indicate ongoing a-fib with controlled rate. Laboratory data reviewed, sodium 141, potassium 4.7, creatinine 2.35. PHYSICAL EXAMINATION CONSTITUTIONAL: No apparent distress. HEENT: Head is normocephalic. Pupils are equal, round. Sclerae anicteric. Mucous membranes of the mouth are moist. No JVD. No carotid bruit. CHEST EXAMINATION: Bibasilar rales. No wheezes or rhonchi. No chest wall tenderness is noted on palpation or with deep breathing. HEART EXAMINATION: Irregular rate and rhythm. S1, S2 heard. Systolic ejection murmur at the left sternal border, no gallops or rub. EXTREMITIES: 1+ peripheral pulses, bilateral lower extremity 2+ pitting edema with thick dry scaly patches and area of weeping. ASSESSMENT Acute on chronic systolic heart failure, EF 30-35% Ischemic cardiomyopathy, declined AICD placement in the past. History of coronary artery disease in the setting of an acute anterior wall [place] with stent placement to the mid LAD 2009 Hypertension Dyslipdiemia with history of statin induced myopathy Paroxysmal atrial fibrillation, new diagnosis. Controlled ventricular rates Pulmonary hypertension PLAN Continue IV diuresis. Entresto has been initiated, expect there to be a small increase in creatinine given the hemodynamic changes with diuresis. Continue entresto regardless. Nurse Practitioner note has been reviewed, I agree with a documented findings and plan of care. Patient was seen and examined. Objective - Vital Signs Vital signs: Vital Signs Temp 97.5 F L 12/14/19 13:07 Pulse 82 12/14/19 13:07 Resp 16 12/14/19 13:07 BP 119/81 12/14/19 13:07 Pulse Ox 94 L 12/14/19 13:07 Intake & Output 12/13/19 12/14/19 12/14/19 18:59 06:59 18:59 Intake Total 1738 500 240 Output Total 1000 700 950 Balance 079 -569 -374 Weight 114 kg 113 kg Intake: Oral 1738 500 240 Output: Urine 1000 700 950 Other: Voiding Method Incontinent Incontinent # Voids 2 2 - Labs CBC & Chem 7: 12/12/19 09:43 12/14/19 07:07 Labs: Abnormal Lab Results - Last 24 Hours (Table) 12/14/19 Range/Units 07:07 BUN 51 H (7-17) mg/dL Creatinine 2.35 H (0.52-1.04) mg/dL Glucose 111 H (74-99) mg/dL
--- NOTE | 2019-12-14 19:36 | P.PN ---
Subjective Progress Note Date: 12/14/19 (delayed charting patient seen at 0900) Principal diagnosis: shortness of breath Patient is a 69-year-old female with a past medical history of coronary artery disease with prior heart attack and resultant ischemic cardiomyopathy with last known ejection fraction of 30%, hypertension, and chronic pain with ongoing debility who presented to the emergency department com plaints of shortness of breath. In the ER she underwent an extensive evaluation. On arrival her vital signs were within normal limits. Laboratory analysis showed a potassium of 5.7, chloride 114, BUN 36, creatinine 2.2 which is at her baseline and consistent with a GFR of 23, BNP 4360 and magnesium of 1. Chest x-ray showed cardiomegaly with mild venous congestion and bibasilar consolidation. She was given IV magnesium, bronchodilators, and steroids. She was admitted for further management. Due to her elevated BNP, increased vascular markings on CXR, and lower extremity edema she was found to have acute exacerbation of CHF. She was started on IV lasix twice daily. She had improvement but the morning after admission. Seen by cardiology and started on entresto. Shehas a hx of CKD IV and hyperkalemia and this medication will need to be followed closely in this patient. Patient seen and examined at bedside. No chest pain, breathing much improved, feels as though her weakness is improved, lower extremity edema improved. Objective - Vital Signs Vital signs: Vital Signs Temp 97.5 F L 12/14/19 13:07 Pulse 82 12/14/19 16:49 Resp 16 12/14/19 16:49 BP 119/81 12/14/19 13:07 Pulse Ox 94 L 12/14/19 13:07 Intake & Output 12/14/19 12/14/19 12/15/19 06:59 18:59 06:59 Intake Total 500 720 Output Total 700 950 Balance -200 -230 Weight 113 kg Intake: Oral 500 720 Output: Urine 700 950 Other: Voiding Method Incontinent Incontinent # Voids 2 - Exam General: non toxic, no distress, appears at stated age, obese Derm: sloughing skin with yellow think plaquing, warm, dry Head: atraumatic, normocephalic, symmetric Eyes: EOMI, no lid lag, anicteric sclera Mouth: no lip lesion, mucus membranes moist Cardiovascular: S1S2 reg, no murmur, positive posterior tibial pulse bilateral, Lungs: decreased breath sounds bilateral with wheezing, no rhonchi, no rales, no accessory muscle use Abdominal: soft, nontender to palpation, no guarding, no appreciable organomegaly Ext: no gross muscle atrophy, 2+ edema, no contractures Neuro: CN II-XI grossly intact, no focal neuro deficits Psych: Alert, oriented, appropriate affect - Labs CBC & Chem 7: 12/12/19 09:43 12/14/19 07:07 Labs: Abnormal Lab Results - Last 24 Hours (Table) 12/14/19 Range/Units 07:07 BUN 51 H (7-17) mg/dL Creatinine 2.35 H (0.52-1.04) mg/dL Glucose 111 H (74-99) mg/dL Assessment and Plan Assessment: Acute exacerbation of systolic CHF with EF 30% -Strict I's and O's, daily weights -Lasix 60 IV daily -cardio recs appreciated -Echocardiogram reviewed - continue with Coreg - entersto started 12/14 will need to follow Cr and K+ closely on this medications. Morbid obesity - weight loss CKD IV, baseline Cr 2.3 - Follow closely with lasix/entresto use - avoid additional nephrotoxic agents - follow Cr Functional debility - PT/OT - suspect will need SNF on discharge. Hyperkalemia, resolved Severe hypomagnesemia, resolved Chronic: HTN HLD CAD Arthritis DVT prophylaxis: Heparin Discussed with: Patient, nursing, family Anticipated discharge date: 1-[address]: SNF A total of 35 minutes was spent on the care of this complex patient more than 50% of the time was spent in counseling and care coordination.
[2019-12-14] MEDS: MELATONIN 3 MG TABLET PO PRN (20:21)
[2019-12-15] MEDS: HYDROcodone/APAP 7.5-325MG 1 EACH TAB PO PRN ×2 (05:30→14:28)
[2019-12-15] MEDS: CARVEDILOL 12.5 MG TAB PO SCH ×2 (08:28→17:18)
[2019-12-15] MEDS: APIXABAN 5 MG TAB PO SCH (08:28)
[2019-12-15] MEDS: SACUBITRIL/VALSARTAN 24 MG-26 MG TABLET PO SCH (08:30)
[2019-12-15] MEDS: PETROLAT,WHITE/LAN/8-HYDROXYQU 227 GM OINT TOPICAL SCH (08:31)
[2019-12-15 08:48] LABS: Potassium 4.8 mmol/L (3.5-5.1)
[2019-12-15] MEDS ORDERED: ONDANSETRON ODT 4 MG TAB PO PRN (09:18)
[2019-12-15] MEDS: FUROSEMIDE 10 MG/ML 10 ML VIAL IV SCH (09:21)
[2019-12-15] MEDS ORDERED: FUROSEMIDE 20 MG TAB PO SCH ×2 (09:30→16:00)
--- NOTE | 2019-12-15 12:35 | P.PN ---
Subjective HISTORY OF PRESENTING ILLNESS This is a pleasant 69-year-old female past medical history significant for coronary artery disease, anterior wall myocardial infarction, stent placement to the mid LAD, ischemic cardiomyopathy, hypertension, chronic systolic heart failure, chronic kidney disease, former nicotine dependence and dyslipidemia. She has seen Dr. Cameron in the office last in 2018. She is seen and examined resting comfortably in no acute distress. She is feeling like her breathing is improving slowly. No chest pain, dizziness or palpitations. Blood pressure 119/81 heart rate 82 afebrile and maintaining oxygen saturation on room air. Telemetry tracings indicate ongoing a-fib with controlled rate. Laboratory data reviewed, sodium 141, potassium 4.7, creatinine 2.35. 12/15/2019 Patient was seen and examined sitting up in no acute distress. She states denies any further worsening shortness of breath. She has had no symptoms of chest pain, dizziness or palpitations. Blood pressure is 101/51 heart rate 82 afebrile maintaining low oxygen saturation of 90% on room air. Laboratory data reviewed, sodium 141, potassium 4.8, creatinine 2.3 and magnesium 2. Currently maintained on Entresto 24/ milligrams twice a day, Lasix 60 mg by mouth daily, carvedilol 25 mg twice a day and Eliquis 5 mg twice a day. PHYSICAL EXAMINATION CONSTITUTIONAL: No apparent distress. HEENT: Head is normocephalic. Pupils are equal, round. Sclerae anicteric. Mucous membranes of the mouth are moist. No JVD. No carotid bruit. CHEST EXAMINATION: Clear to auscultation bilaterally. No rales, wheezes or rhonchi. No chest wall tenderness is noted on palpation or with deep breathing. HEART EXAMINATION: Irregular rate and rhythm. S1, S2 heard. Systolic ejection murmur at the left sternal border, no gallops or rub. EXTREMITIES: 1+ peripheral pulses, bilateral lower extremity 1+ pitting edema with thick dry scaly patches and area of weeping. ASSESSMENT Acute on chronic systolic heart failure, EF 30-35% Ischemic cardiomyopathy, declined AICD placement in the past. History of coronary artery disease in the setting of an acute anterior wall LA with stent placement to the mid LAD 2009 Hypertension Dyslipdiemia with history of statin induced myopathy Paroxysmal atrial fibrillation, new diagnosis. Controlled ventricular rates Pulmonary hypertension PLAN Increase Lasix to twice a day. Repeat BMP in one week. Follow-up in the office with Dr. Cameron in 2 weeks. Nurse Practitioner note has been reviewed, I agree with a documented findings and plan of care. Patient was seen and examined. Objective - Vital Signs Vital signs: Vital Signs Temp 98.3 F 12/15/19 06:59 Pulse 82 12/15/19 06:59 Resp 16 12/15/19 06:59 BP 101/51 12/15/19 06:59 Pulse Ox 95 12/15/19 08:37 Intake & Output 12/14/19 12/15/19 12/15/19 18:59 06:59 18:59 Intake Total 720 Output Total 950 2750 Balance -230 -2750 Weight 112.5 kg Intake: Oral 720 Output: Urine 950 2750 Other: Voiding Method Incontinent Incontinent Incontinent # Bowel Movements 1 - Labs CBC & Chem 7: 12/12/19 09:43 12/15/19 07:42 Labs: Abnormal Lab Results - Last 24 Hours (Table) 12/15/19 Range/Units 07:42 BUN 55 H (7-17) mg/dL Creatinine 2.30 H (0.52-1.04) mg/dL
--- NOTE | 2019-12-15 13:11 | P.PN ---
Subjective Progress Note Date: 12/15/19 Principal diagnosis: shortness of breath Patient is a 69-year-old female with a past medical history of coronary artery disease with prior heart attack and resultant ischemic cardiomyopathy with last known ejection fraction of 30%, hypertension, and chronic pain with ongoing debility who presented to the emergency department complaints of shortness of breath. In the ER she underwent an extensive evaluation. On arrival her vital signs were within normal limits. Laboratory analysis showed a potassium of 5.7, chloride 114, BUN 36, creatinine 2.2 which is at her baseline and consistent with a GFR of 23, BNP 4360 and magnesium of 1. Chest x-ray showed cardiomegaly with mild venous congestion and bibasilar consolidation. She was given IV magnesium, bronchodilators, and steroids. She was admitted for further management. Due to her elevated BNP, increased vascular markings on CXR, and lower extremity edema she was found to have acute exacerbation of CHF. She was started on IV lasix twice daily. She had improvement but the morning after admission. Seen by cardiology and started on entresto. Shehas a hx of CKD IV and hyperkalemia and this medication will need to be followed closely in this patient. She continued to diurese well and her legs were much improved. Her weakness also improved. Plans will be to go home with home health. Patient seen and examined at bedside. no feeling great today having some nausea, no vomiting, no diarrhea. Breathing much improved. + BM today Objective - Vital Signs Vital signs: Vital Signs Temp 98.3 F 12/15/19 06:59 Pulse 82 12/15/19 06:59 Resp 16 12/15/19 06:59 BP 101/51 12/15/19 06:59 Pulse Ox 95 12/15/19 08:37 Intake & Output 12/14/19 12/15/19 12/15/19 18:59 06:59 18:59 Intake Total 720 Output Total 950 2750 Balance -230 -2750 Weight 112.5 kg Intake: Oral 720 Output: Urine 950 2750 Other: Voiding Method Incontinent Incontinent Incontinent # Bowel Movements 1 - Exam General: non toxic, no distress, appears at stated age, obese Derm: sloughing skin with yellow think plaquing, warm, dry Head: atraumatic, normocephalic, symmetric Eyes: EOMI, no lid lag, anicteric sclera Mouth: no lip lesion, mucus membranes moist Cardiovascular: S1S2 reg, no murmur, positive posterior tibial pulse bilateral, Lungs: decreased breath sounds bilateral with wheezing, no rhonchi, no rales, no accessory muscle use Abdominal: soft, nontender to palpation, no guarding, no appreciable organomegaly Ext: no gross muscle atrophy, 2+ edema right and 1+ edema left, no contractures Neuro: CN II-XI grossly intact, no focal neuro deficits Psych: Alert, oriented, appropriate affect - Labs CBC & Chem 7: 12/12/19 09:43 12/15/19 07:42 Labs: Abnormal Lab Results - Last 24 Hours (Table) 12/15/19 Range/Units 07:42 BUN 55 H (7-17) mg/dL Creatinine 2.30 H (0.52-1.04) mg/dL Assessment and Plan Assessment: Acute exacerbation of systolic CHF with EF 30% -Strict I's and O's, daily weights -Lasix to PO -cardio recs appreciated -Echocardiogram reviewed - continue with Coreg - entersto started 12/14 will need to follow Cr and K+ closely on this medications. Morbid obesity - weight loss CKD IV, baseline Cr 2.3 - Follow closely with lasix/entresto use - avoid additional nephrotoxic agents - follow Cr Functional debility - PT/OT - suspect will need SNF on discharge. Hyperkalemia, resolved Severe hypomagnesemia, resolved Chronic: HTN HLD CAD Arthritis DVT prophylaxis: Heparin Discussed with: Patient, nursing Anticipated discharge date: in AM Anticipated discharge place: home with home health and palliative A total of 25 minutes was spent on the care of this complex patient more than 50% of the time was spent in counseling and care coordination.
--- NOTE | 2019-12-15 14:11 | P.DS ---
Providers Date of admission: 12/12/19 12:19 Expected date of discharge: 12/15/19 Attending physician: Keyonna Delgado DO Consults: 12/12/19 18:02 Consult Physician Routine Consulting Provider: Rosie Cameron Consult Reason/Comments: CHF Do you want consulting provider notified?: Yes Primary care physician: [facility] Course: Discharge Diagnosis: Acute exacerbation of CHF with EF 30% Morbid obesity BMI 38.8 CKD IV Functional debility Hyperkalemia Severe hypomagnesemia bilateral lower extremity dermatitis HTN HLD CAD Arthritis Hospital Course: Patient is a 69-year-old female with a past medical history of coronary artery disease with prior heart attack and resultant ischemic cardiomyopathy with last known ejection fraction of 30%, hypertension, and chronic pain with ongoing debility who presented to the emergency department complaints of shortness of breath. In the ER she underwent an extensive evaluation. On arrival her vital signs were within normal limits. Laboratory analysis showed a potassium of 5.7, chloride 114, BUN 36, creatinine 2.2 which is at her baseline and consistent with a GFR of 23, BNP 4360 and magnesium of 1. Chest x-ray showed cardiomegaly with mild venous congestion and bibasilar consolidation. She was given IV magnesium, bronchodilators, and steroids. She was admitted for further management. Due to her elevated BNP, increased vascular markings on CXR, and lower extremity edema she was found to have acute exacerbation of CHF. She was started on IV lasix twice daily. She had improvement but the morning after admission. Seen by cardiology and started on entresto. Shehas a hx of CKD IV and hyperkalemia and this medication will need to be followed closely in this patient. She continued to diurese well and her legs were much improved. Her weakness also improved. She decided to got [facility] for rehab. She will continue with lasix and entresto. She will follow-up with Dr. Jimenez in 1 week. Repat BMP in 2-3 days. for physical exam see progress note same date. A total of 35 minutes of time were spent preparing this complex discharge summa ry . Patient Condition at Discharge: Stable Plan - Discharge Summary Discharge Rx Participant: No New Discharge Prescriptions: New Petrolat,White/Leonides/8-Hydroxyqu [Bag Alcalde] 1 gm TOPICAL SuMoWeFr oint Menthol-Zinc Oxide Oint [Calmoseptine Oint] 1 applic TOPICAL TuThSa applic Apixaban [Eliquis] 5 mg PO BID tab Sacubitril/Valsartan [Entresto 24 mg-26 mg Tablet] 1 each PO BID tablet Furosemide [Lasix] 60 mg PO BID@0900,1600 tab Continue Carvedilol 25 mg PO BID Aspirin 325 mg PO DAILY Ondansetron HCl [Zofran] 8 mg PO Q12H PRN PRN Reason: Nausea And Vomiting HYDROcodone/APAP 7.5-325MG [Steele 7.5-325] 1 tab PO Q6HR PRN #21 tab PRN Reason: pain Discontinued amLODIPine [Norvasc] 5 mg PO QAM Lisinopril [Zestril] 10 mg PO QAM Discharge Medication List Aspirin 325 mg PO DAILY 10/13/16 [History] Carvedilol 25 mg PO BID 10/13/16 [History] Ondansetron HCl [Zofran] 8 mg PO Q12H PRN 12/12/19 [History] Apixaban [Eliquis] 5 mg PO BID tab 12/15/19 [Rx] Furosemide [Lasix] 60 mg PO BID@0900,1600 tab 12/15/19 [Rx] HYDROcodone/APAP 7.5-325MG [Steele 7.5-325] 1 tab PO Q6HR PRN #21 tab 12/15/19 [Rx] Menthol-Zinc Oxide Oint [Calmoseptine Oint] 1 applic TOPICAL TuThSa applic 12/15/19 [Rx] Petrolat,White/Leonides/8-Hydroxyqu [Bag Alcalde] 1 gm TOPICAL SuMoWeFr oint 12/15/19 [Rx] Sacubitril/Valsartan [Entresto 24 mg-26 mg Tablet] 1 each PO BID tablet 12/15/19 [Rx] Follow up Appointment(s)/Referral(s): Rosie Cameron MD [STAFF PHYSICIAN] - 2 Weeks Elsa Xiong MD [Primary Care Provider] - 1-2 days Ambulatory/Diagnostic Orders: Basic Metabolic Panel [LAB.AMB] Time Frame: 1 Week, Location: None Selected Activity/Diet/Wound Care/Special Instructions: Activity: as tolerated, elevate legs when resting Diet: heart healthy, 2L fluid resriction Wound Care: Wash legs daily with warm soapy water and washcloth to help remove dry scaly s kin. Dry thoroughly. Apply bag balm and 2 layers of Tubigrip Wednesday and Wednesday. Apply calmoseptine and 2 layers to do digital pre press operator on Wednesday and Wednesday. Special Instructions: BMP in 2-3 days DX: CKD IV
[2019-12-15 14:19] VITALS: BP 98/65; PULSE 60; RESP 17; TEMP 97.6
== END 2019-12-15 17:43 | DRG 291 ==
LOC: EC 09:06 → 6NMEDSUR 12:19
PROVIDERS: ADMIT Internal Medicine; ATTEND Internal Medicine
DX: I13.0 Hypertensive heart and chronic kidney disease with heart failure and stage 1 through stage 4 chronic kidney disease, or unspecified chronic kidney disease (principal); I50.23 Acute on chronic systolic (congestive) heart failure; N18.4 Chronic kidney disease, stage 4 (severe); J44.1 Chronic obstructive pulmonary disease with (acute) exacerbation; I27.20 Pulmonary hypertension, unspecified; R62.7 Adult failure to thrive; E87.5 Hyperkalemia; E83.42 Hypomagnesemia; E66.01 Morbid (severe) obesity due to excess calories; R53.81 Other malaise; E78.5 Hyperlipidemia, unspecified; I25.10 Atherosclerotic heart disease of native coronary artery without angina pectoris; M19.90 Unspecified osteoarthritis, unspecified site; Z66 Do not resuscitate; Z51.5 Encounter for palliative care; F41.9 Anxiety disorder, unspecified; G89.29 Other chronic pain; L85.3 Xerosis cutis; I08.1 Rheumatic disorders of both mitral and tricuspid valves; I25.5 Ischemic cardiomyopathy; I48.0 Paroxysmal atrial fibrillation; R26.81 Unsteadiness on feet; Z68.38 Body mass index [BMI] 38.0-38.9, adult; I25.2 Old myocardial infarction; Z71.3 Dietary counseling and surveillance; Z79.82 Long term (current) use of aspirin; Z79.899 Other long term (current) drug therapy; Z87.19 Personal history of other diseases of the digestive system; Z90.49 Acquired absence of other specified parts of digestive tract; Z98.890 Other specified postprocedural states; Z87.891 Personal history of nicotine dependence; Z87.39 Personal history of other diseases of the musculoskeletal system and connective tissue; Z95.5 Presence of coronary angioplasty implant and graft; Z98.51 Tubal ligation status; Z82.49 Family history of ischemic heart disease and other diseases of the circulatory system
CPT/HCPCS: 36415; 71045; 80048; 80053; 81003; 83605; 83735; 83880; 84100; 84132; 84439; 84443; 84484; 85025; 85610; 85730; 93005; 93306; 94640; 96374; 96375; 99285

== ENCOUNTER 2020-02-16 10:55 | Inpatient (IN) | payer MEDICARE ==
[2020-02-16] MEDS ORDERED: SODIUM CHLORIDE 0.9% 1,000 ML IV STA ×2 (11:13→12:40)
[2020-02-16 11:37] LABS: Basophils % (A) 0 %; Eosinophils # (A) 0.2 k/uL (0-0.7); Eosinophils % (A) 2 %; HCT 36.9 % (34.0-46.0); HGB 11.5 gm/dL (11.4-16.0); Hypochromasia Slight; Lymphocytes # (A) 0.6 k/uL (1.0-4.8); Lymphocytes % (A) 7 %; MCH 31.3 pg (25.0-35.0); MCHC 31.1 g/dL (31.0-37.0); MCV 100.4 fL (80.0-100.0); Macrocytosis Slight; Mean Platelet Volume 9.5; Monocytes # (A) 0.5 k/uL (0-1.0); Monocytes % (A) 5 %; Neutrophils # (A) 7.2 k/uL (1.3-7.7); Neutrophils % (A) 84 %; Platelet Count 189 k/uL (150-450); RBC 3.67 m/uL (3.80-5.40); RDW 14.3 % (11.5-15.5); WBC 8.6 k/uL (3.8-10.6)
--- NOTE | 2020-02-16 11:40 | XR ---
EXAMINATION TYPE: XR chest 1V DATE OF EXAM: 02/16/2020 COMPARISON: 12/12/2019 HISTORY: 69-year-old female with weakness TECHNIQUE: Single frontal view of the chest is obtained. FINDINGS: Rightward patient rotation. Moderate cardiomegaly persists. Elongation/ectasia of the thoracic aorta is similar. Hazy lower lung densities related to overlying soft tissue. Some patchy opacity at the ri ght base is difficult to exclude. No sizable effusion. IMPRESSION: 1. Rotated exam. Moderate cardiomegaly. Large patient body habitus. 2. Some patchy atelectasis/infiltrate difficult to exclude at the right base.
[2020-02-16 11:49] LABS: Albumin 3.3 g/dL (3.5-5.0); C Reactive Protein 81.1 mg/L (<10.0); Magnesium 2.7 mg/dL (1.6-2.3); Partial Thromboplastin Time 22.5 sec (22.0-30.0); Prothrombin Time 10.2 sec (9.0-12.0); Total Protein 5.9 g/dL (6.3-8.2)
[2020-02-16 11:51] LABS: Potassium 6.1 mmol/L (3.5-5.1)
[2020-02-16] MEDS ORDERED: SODIUM POLYSTYRENE SULFONATE 15 GM/60 ML BOTTLE PO ONE (11:58)
[2020-02-16] MEDS ORDERED: DEXTROSE 50% SYRINGE 50 ML IVP ONE (11:58)
[2020-02-16] MEDS ORDERED: INSULIN REGULAR 100 UNIT/ML VIAL IV ONE (11:58)
[2020-02-16] MEDS ORDERED: ALBUTEROL NEB (CONC) 2.5 MG/0.5 ML INHALATION ONE (11:58)
--- NOTE | 2020-02-16 12:06 | ED ---
Weakness HPI - General Chief complaint: Weakness Stated complaint: Weakness Time Seen by Provider: 02/16/20 11:04 Source: patient, EMS Mode of arrival: EMS Limitations: no limitations - History of Present Illness Initial comments: Patient is a 69-year-old female, with multiple comorbidities including heart failure, hypertension, renal disease, hyperlipidemia, presenting to the emergency department via EMS for increased weakness in the lower legs. Patient states she normally walks with a walker however the past few days she's been having a hard time standing and moving around. Patient states she has been having some increased soreness and swelling of her bilateral lower legs. She states she thought her legs were improving but over the last few days she's noticed redness as well as some blisters starting. Patient denies any chest pain, shortness of breath, abdominal pain, nausea, vomiting. She denies fever or chills. She denies any recent new medications. Patient is on eliquis secondary to A. fib. Patient has no other complaints at this time. Upon arrival to the ER, patient's blood pressure is 95/48, 97% on 2 L, pulse 63, respiratory 20, normal temperature. She is not normally on oxygen at home. - Related Data Home Medications Medication Instructions Recorded Confirmed Aspirin 325 mg PO DAILY 10/13/16 02/16/20 Carvedilol 25 mg PO BID 10/13/16 02/16/20 Ondansetron HCl [Zofran] 8 mg PO Q8H PRN 12/12/19 02/16/20 Baclofen [Lioresal] 5 mg PO BID PRN 02/16/20 02/16/20 Lisinopril [Zestril] 10 mg PO DAILY 02/16/20 02/16/20 amLODIPine [Norvasc] 10 mg PO DAILY 02/16/20 02/16/20 Previous Rx's Medication Instructions Recorded HYDROcodone/APAP 7.5-325MG [[place] 1 tab PO Q6HR PRN #21 tab 12/15/19 7.5-325] Allergies Allergy/AdvReac Type Severity Reaction Status Date / Time No Known Allergies Allergy Verified 02/16/20 12:02 Review of Systems ROS Statement: Those systems with pertinent positive or pertinent negative responses have been documented in the HPI. ROS Other: All systems not noted in ROS Statement are negative. Past Medical History Past Medical History: Coronary Artery Disease (CAD), Heart Failure, Hyperlipidemia, Hypertension, Myocardial Infarction ([place]), Osteoarthritis (OA), Renal Disease Additional Past Medical History / Comment(s): Statin induced myopathy, arthritis in multiple joints, chronic pain especially in bilateral arms/legs, balance issues d/t R knee/L hip pain, pt believes she has some R foot drop, 2009 [place] with CHF and respiratory failure/vented, CKD stage IV, diverticulitis with bowel resection/colostomy with reversal, sinus issues, Last Myocardial Infarction Date:: 2009 History of Any Multi-Drug Resistant Organisms: None Reported Past Surgical History: Bowel Resection, Heart Catheterization With Stent, Hernia Repair, Tonsillectomy, Tubal Ligation Additional Past Surgical History / Comment(s): Bowel resection with colostomy/reversal, colonoscopies, open ventral hernia repair, D&C, Past Anesthesia/Blood Transfusion Reactions: No Reported Reaction Date of Last Stent Placement:: 2009 Past Psychological History: No Psychological Hx Reported Smoking Status: Former smoker Past Alcohol Use History: None Reported Past Drug Use History: None Reported - Past Family History Mother Family Medical History: Congestive Heart Failure (CHF) Additional Family Medical History / Comment(s): Mother of CHF in her early 80s. Father Family Medical History: Myocardial Infarction ([place]) Additional Family Medical History / Comment(s): Father of a [place] at the age of 57yrs. General Exam - General Exam Comments Initial Comments: GENERAL: Patient appears fatigued, and in no acute distress. HEAD: Atraumatic, normocephalic. EYES: Pupils equal round and reactive to light, extraocular movements intact, sclera anicteric, conjunctiva are normal. ENT: TMs normal, nares patent, oropharynx clear without exudates. Moist mucous membr anes. NECK: Normal range of motion, supple without lymphadenopathy or JVD. LUNGS: Slightly diminished in the lower lung fox bilaterally, although large body habitus, No wheezes rales or rhonchi. HEART: Regular rate and rhythm without murmurs, rubs or gallops. ABDOMEN: Soft, nontender, normoactive bowel sounds. No guarding, no rebound. No masses appreciated. : Deferred EXTREMITIES: Bilateral lower leg edema, vascular insufficiency, erythema, warmth to palpation. There are a few blisters on both legs, some that are open. Patient is neurovascular intact. Palpable bilateral strong dorsal pedal pulse. NEUROLOGICAL: Cranial nerves II through XII grossly intact. Normal speech. PSYCH: Normal mood, normal affect. SKIN: Warm, Dry, normal turgor. (See above under extremities) Limitations: no limitations Course Vital Signs 02/16/20 02/16/20 02/16/20 10:57 11:53 12:15 Temperature 96.9 F L Pulse Rate 63 57 L 67 Pulse Rate [ Chairman [employer] Chief Executive Officer ] Respiratory 20 18 18 Rate Blood Pressure 95/48 101/67 77/43 O2 Sat by Pulse 97 99 Oximetry 02/16/20 02/16/20 02/16/20 12:22 12:30 12:35 Temperature Pulse Rate 65 65 65 Pulse Rate [ Chairman [employer] Chief Executive Officer ] Respiratory 18 Rate Blood Pressure 76/50 O2 Sat by Pulse Oximetry 02/16/20 02/16/20 02/16/20 12:46 13:00 13:05 Temperature Pulse Rate 64 63 Pulse Rate [ 64 Chairman & Chief Executive Officer ] Respiratory 18 17 Rate Blood Pressure 99/76 96/57 O2 Sat by Pulse 98 95 Oximetry 02/16/20 02/16/20 13:32 13:50 Temperature Pulse Rate 58 L 68 Pulse Rate [ Chairman [employer] Chief Executive Officer ] Respiratory 16 17 Rate Blood Pressure 107/60 120/91 O2 Sat by Pulse 99 Oximetry EKG Findings - EKG Comments: EKG Findings:: Ventricular rate 66, QRS 88, QTc 471. Atrial fibrillation, no signs ischemia. Similar to previous EKG in 12/12/2019. Medical Decision Making - Medical Decision Making Patient is 69-year-old female here for weakness bilateral lower legs. Patient has multiple comorbidities. Upon arrival, patient was afebrile, hypotensive. 97% on 2 L. Exam revealed her lateral lower leg cellulitis. EKG reveals A. fib, no signs of acute ischemia. Chest x-ray shows possibility of infiltrate at the right base. Lab revealed hyperkalemia at 6.1, mild [place] I with creatinine at 2.43. CRP is 81, ESR is 25. BNP is 6840. Urine came back positive for nitrates, large amount of WBC clumps and bacteria. Urine culture is pending. Blood cultures are also pending. Patient will be admitted for UTI, sepsis, as well as bilateral lower leg cellulitis. Patient was given fluids, albuterol, kayexalate, insulin, calcium. Potassium recheck was 5.4. Patient's blood pressure is also improved and is currently 96/57. Patient was accepted by Dr. Hardwick. Case was discussed with Dr. Moreno who is in agreement with this plan of care. - Lab Data Result diagrams: 02/16/20 11:14 02/16/20 12:35 Lab Results 02/16/20 02/16/20 02/16/20 Range/Units 11:14 11:14 11:14 WBC 8.6 (3.8-10.6) k/uL RBC 3.67 L (3.80-5.40) m/uL Hgb 11.5 (11.4-16.0) gm/dL Hct 36.9 (34.0-46.0) % MCV 100.4 H (80.0-100.0) fL MCH 31.3 (25.0-35.0) pg MCHC 31.1 (31.0-37.0) g/dL RDW 14.3 (11.5-15.5) % Plt Count 189 (150-450) k/uL Neutrophils % 84 % Lymphocytes % 7 % Monocytes % 5 % Eosinophils % 2 % Basophils % 0 % Neutrophils # 7.2 (1.3-7.7) k/uL Lymphocytes # 0.6 L (1.0-4.8) k/uL Monocytes # 0.5 (0-1.0) k/uL Eosinophils # 0.2 (0-0.7) k/uL Basophils # 0.0 (0-0.2) k/uL Hypochromasia Slight Macrocytosis Slight ESR 25 H (0-20) mm/hr PT 10.2 (9.0-12.0) sec INR 1.0 (<1.2) APTT 22.5 (22.0-30.0) sec Sodium 140 (137-145) mmol/L Potassium 6.1 H* (3.5-5.1) mmol/L Chloride 112 H (98-107) mmol/L Carbon Dioxide 20 L (22-30) mmol/L Anion Gap 8 mmol/L BUN 48 H (7-17) mg/dL Creatinine 2.43 H (0.52-1.04) mg/dL Est GFR (CKD-EPI)AfAm 23 (>60 ml/min/1.73 sqM) Est GFR (CKD-EPI)NonAf 20 (>60 ml/min/1.73 sqM) Glucose 74 (74-99) mg/dL Plasma Lactic Acid Carlos (0.7-2.0) mmol/L Calcium 9.0 (8.4-10.2) mg/dL Magnesium 2.7 H (1.6-2.3) mg/dL Total Bilirubin 1.0 (0.2-1.3) mg/dL AST 42 H (14-36) U/L ALT 18 (4-34) U/L Alkaline Phosphatase 87 (38-126) U/L Troponin I (0.000-0.034) ng/mL C-Reactive Protein 81.1 H (<10.0) mg/L NT-Pro-B Natriuret Pep pg/mL Total Protein 5.9 L (6.3-8.2) g/dL Albumin 3.3 L (3.5-5.0) g/dL Urine Color Urine Appearance (Clear) Urine pH (5.0-8.0) Ur Specific [place] (1.001-1.035) Urine Protein (Negative) Urine Glucose (UA) (Negative) Urine Ketones (Negative) Urine Blood (Negative) Urine Nitrite (Negative) Urine Bilirubin (Negative) Urine Urobilinogen (<2.0) mg/dL Ur Leukocyte Esterase (Negative) Urine RBC (0-5) /hpf Urine WBC (0-5) /hpf Urine WBC Clumps (None) /hpf Ur Squamous Epith Cells (0-4) /hpf Triple Phos Crystals (None) /hpf Urine Bacteria (None) /hpf Urine Mucus (None) /hpf 02/16/20 02/16/20 02/16/20 Range/Units 11:14 11:14 12:20 WBC (3.8-10.6) k/uL RBC (3.80-5.40) m/uL Hgb (11.4-16.0) gm/dL Hct (34.0-46.0) % MCV (80.0-100.0) fL MCH (25.0-35.0) pg MCHC (31.0-37.0) g/dL RDW (11.5-15.5) % Plt Count (150-450) k/uL Neutrophils % % Lymphocytes % % Monocytes % % Eosinophils % % Basophils % % Neutrophils # (1.3-7.7) k/uL Lymphocytes # (1.0-4.8) k/uL Monocytes # (0-1.0) k/uL Eosinophils # (0-0.7) k/uL Basophils # (0-0.2) k/uL Hypochromasia Macrocytosis ESR (0-20) mm/hr PT (9.0-12.0) sec INR (<1.2) APTT (22.0-30.0) sec Sodium (137-145) mmol/L Potassium (3.5-5.1) mmol/L Chloride (98-107) mmol/L Carbon Dioxide (22-30) mmol/L Anion Gap mmol/L BUN (7-17) mg/dL Creatinine (0.52-1.04) mg/dL Est GFR (CKD-EPI)AfAm (>60 ml/min/1.73 sqM) Est GFR (CKD-EPI)NonAf (>60 ml/min/1.73 sqM) Glucose (74-99) mg/dL Plasma Lactic Acid Carlos 1.1 (0.7-2.0) mmol/L Calcium (8.4-10.2) mg/dL Magnesium (1.6-2.3) mg/dL Total Bilirubin (0.2-1.3) mg/dL AST (14-36) U/L ALT (4-34) U/L Alkaline Phosphatase (38-126) U/L Troponin I 0.018 (0.000-0.034) ng/mL C-Reactive Protein (<10.0) mg/L NT-Pro-B Natriuret Pep pg/mL Total Protein (6.3-8.2) g/dL Albumin (3.5-5.0) g/dL Urine Color Yellow Urine Appearance Cloudy H (Clear) Urine pH 8.0 (5.0-8.0) Ur Specific [place] 1.016 (1.001-1.035) Urine Protein 1+ H (Negative) Urine Glucose (UA) Negative (Negative) Urine Ketones Trace H (Negative) Urine Blood Moderate H (Negative) Urine Nitrite Positive H (Negative) Urine Bilirubin Negative (Negative) Urine Urobilinogen <2.0 (<2.0) mg/dL Ur Leukocyte Esterase Large H (Negative) Urine RBC 10 H (0-5) /hpf Urine WBC 97 H (0-5) /hpf Urine WBC Clumps Occasional H (None) /hpf Ur Squamous Epith Cells 6 H (0-4) /hpf Triple Phos Crystals Moderate H (None) /hpf Urine Bacteria Many H (None) /hpf Urine Mucus Rare H (None) /hpf 02/16/20 02/16/20 Range/Units 12:35 12:35 WBC (3.8-10.6) k/uL RBC (3.80-5.40) m/uL Hgb (11.4-16.0) gm/dL Hct (34.0-46.0) % MCV (80.0-100.0) fL MCH (25.0-35.0) pg MCHC (31.0-37.0) g/dL RDW (11.5-15.5) % Plt Count (150-450) k/uL Neutrophils % % Lymphocytes % % Monocytes % % Eosinophils % % Basophils % % Neutrophils # (1.3-7.7) k/uL Lymphocytes # (1.0-4.8) k/uL Monocytes # (0-1.0) k/uL Eosinophils # (0-0.7) k/uL Basophils # (0-0.2) k/uL Hypochromasia Macrocytosis ESR (0-20) mm/hr PT (9.0-12.0) sec INR (<1.2) APTT (22.0-30.0) sec Sodium (137-145) mmol/L Potassium 5.4 H (3.5-5.1) mmol/L Chloride (98-107) mmol/L Carbon Dioxide (22-30) mmol/L Anion Gap mmol/L BUN (7-17) mg/dL Creatinine (0.52-1.04) mg/dL Est GFR (CKD-EPI)AfAm (>60 ml/min/1.73 sqM) Est GFR (CKD-EPI)NonAf (>60 ml/min/1.73 sqM) Glucose (74-99) mg/dL Plasma Lactic Acid Carlos (0.7-2.0) mmol/L Calcium (8.4-10.2) mg/dL Magnesium (1.6-2.3) mg/dL Total Bilirubin (0.2-1.3) mg/dL AST (14-36) U/L ALT (4-34) U/L Alkaline Phosphatase (38-126) U/L Troponin I (0.000-0.034) ng/mL C-Reactive Protein (<10.0) mg/L NT-Pro-B Natriuret Pep 6840 pg/mL Total Protein (6.3-8.2) g/dL Albumin (3.5-5.0) g/dL Urine Color Urine Appearance (Clear) Urine pH (5.0-8.0) Ur Specific [place] (1.001-1.035) Urine Protein (Negative) Urine Glucose (UA) (Negative) Urine Ketones (Negative) Urine Blood (Negative) Urine Nitrite (Negative) Urine Bilirubin (Negative) Urine Urobilinogen (<2.0) mg/dL Ur Leukocyte Esterase (Negative) Urine RBC (0-5) /hpf Urine WBC (0-5) /hpf Urine WBC Clumps (None) /hpf Ur Squamous Epith Cells (0-4) /hpf Triple Phos Crystals (None) /hpf Urine Bacteria (None) /hpf Urine Mucus (None) /hpf Critical Care Time Critical Care Time: Yes Total Critical Care Time: 35 (Patient was hypotensive with BP in the 70s over 40s, 70 or 50s secondary to sepsis. Timing is he use review patient's records, review lab work, EKG, etiology reports. Patient was given fluids, antibiotics, treated for hyperkalemia.) Disposition Clinical Impression: UTI (urinary tract infection), Bilateral lower leg cellulitis, Sepsis associated hypotension Disposition: ADMITTED IP TO THIS HOSP Condition: Good Is patient prescribed a controlled substance at d/c from ED?: No Referrals: Elsa Xiong MD [Primary Care Provider] - 1-2 days Decision Date: 02/16/20 Decision Time: 13:40
[2020-02-16] MEDS ORDERED: CALCIUM GLUCONATE 2 GM in SODIUM CHLORIDE 0.9% 100 ML IVPB ONE (12:32)
[2020-02-16] MEDS ORDERED: VANCOMYCIN IV PER PHARMACY 1 EACH MISC MISCELLANE PRN (12:34)
[2020-02-16] MEDS ORDERED: CEFEPIME 2 GM in SODIUM CHLORIDE 0.9% 100 ML IVPB STA (12:34)
[2020-02-16] MEDS ORDERED: VANCOMYCIN 1,500 MG in SODIUM CHLORIDE 0.9% 250 ML IVPB STA (12:43)
[2020-02-16 13:01] LABS: Erythrocyte Sedimentation Rate 25 mm/hr (0-20)
[2020-02-16 13:12] LABS: Appearance,Urine Cloudy (Clear); Bilirubin,Urine Negative (Negative); Blood,Urine Moderate (Negative); Color,Urine Yellow; Glucose,Urine (UA) Negative (Negative); Ketones,Urine Trace (Negative); Leukocyte Esterase,Urine Large (Negative); Mucus,Urine Rare /hpf; Nitrite,Urine Positive (Negative); Protein,Urine 1+ (Negative); RBC,Urine 10 /hpf (0-5); Specific Gravity,Urine 1.016 (1.001-1.035); Squamous Epithelial Cell,Urine 6 /hpf (0-4); Triple Phosphate Crystal,Urine Moderate /hpf; Urobilinogen,Urine <2.0 mg/dL (<2.0); WBC,Urine 97 /hpf (0-5)
[2020-02-16 13:14] LABS: Bacteria,Urine Many /hpf
--- NOTE | 2020-02-16 13:27 | XR ---
EXAMINATION TYPE: XR tibia fibula bilateral DATE OF EXAM: 02/16/2020 CLINICAL HISTORY: Lower extremity pain, swelling, and limited range of motion TECHNIQUE: Two views of the bilateral lower extremities are obtained. COMPARISON: None. FINDINGS: There is no acute fracture or dislocation seen in either tibia or fibula. There is diffuse subcutaneous edema of the bilateral lower extremities. There is severe right knee medial compartment joint space narrowing with extensive sclerosis and osseous proliferative change and medial subluxati on. Joint space narrowing and subchondral cystic change with opposing surface sclerosis and osseous proliferative changes seen within the lateral compartment of the left knee. The overlying soft tissue appears unremarkable. IMPRESSION: 1. No acute fracture or dislocation seen in the left tibia or fibula. 2. Severe right medial arthropathy of the knee and lateral compartment arthropathy of the left knee. 3. Diffuse bilateral subcutaneous edema.
[2020-02-16] MEDS ORDERED: NALOXONE 0.4 MG/ML 1 ML VIAL IV PRN (13:29)
[2020-02-16] MEDS ORDERED: ONDANSETRON 4 MG/2 ML VIAL IVP PRN (13:29)
[2020-02-16] MEDS ORDERED: ACETAMINOPHEN TAB 325 MG TAB PO PRN (13:29)
[2020-02-16] MEDS ORDERED: SODIUM CHLORIDE 0.9% 1,000 ML IV SCH (13:30)
--- NOTE | 2020-02-16 15:32 | P.HPIM ---
History of Present Illness H&P Date: 02/16/20 Chief Complaint: Weakness and fall Patient is a 69-year-old female with a past medical history of coronary artery disease with prior heart attack and resultant ischemic cardiomyopathy with last known ejection fraction of 30%, hypertension, and chronic pain with ongoing debility who presented to the emergency department complaints of weakness and fatigue with multiple falls due to weakness this week, the patient reports previous hospitalization and was discharged 12/[address] [facility] where she underwent rehab for several weeks, she reports she was discharged from [facility] approximately 20 days ago and was doing well up until this week when she noticed increased weakness and fatigue. The patient reports falls from her legs giving out and denies any tripping, denies syncope, denies lightheadedness or dizziness. She reports some dysuria and urgency for the last week, she denies any subjective fevers or chills, she denies any chest pain or shortness of breath. The patient has been having some chronic lower extremity redness and leaking blisters from her legs bilaterally for the last 5 days. In the ER the patient had a comprehensive workup white count was 8.6, sodium 140, potassium 6.1, serum bicarb 20, BUN 48, creatinine 2.43, magnesium 2.7, AST 43 ALT 18 NT proBNP 6840 urinalysis cloudy trace ketones large leuk esterase and nitrite positive urine WBC is 98, Chest x-ray showed moderate cardiomegaly some patchy atelectasis and infiltrate at the right base. The patient was given 2 L IV fluid bolus and started on empiric IV antibiotics with cefepime and vancomycin and given a dose of Kayexalate and recommended for admission Past Medical History Past Medical History: Coronary Artery Disease (CAD), Heart Failure, Hyperlipidemia, Hypertension, Myocardial Infarction ([place]), Osteoarthritis (OA), Renal Disease Additional Past Medical History / Comment(s): Statin induced myopathy, arthritis in multiple joints, chronic pain especially in bilateral arms/legs, balance issues d/t R knee/L hip pain, pt believes she has some R foot drop, 2010 [place] with CHF and respiratory failure/vented, CKD stage IV, diverticulitis with bowel resection/colostomy with reversal, sinus issues, Last Myocardial Infarction Date:: 2009 History of Any Multi-Drug Resistant Organisms: None Reported Past Surgical History: Bowel Resection, Heart Catheterization With Stent, Hernia Repair, Tonsillectomy, Tubal Ligation Additional Past Surgical History / Comment(s): Bowel resection with colostomy/reversal, colonoscopies, open ventral hernia repair, D&C, Past Anesthesia/Blood Transfusion Reactions: No Reported Reaction Date of Last Stent Placement:: 2009 Past Psychological History: No Psychological Hx Reported Smoking Status: Former smoker Past Alcohol Use History: None Reported Past Drug Use History: None Reported - Past Family History Mother Family Medical History: Congestive Heart Failure (CHF) Additional Family Medical History / Comment(s): Mother of CHF in her early 80s. Father Family Medical History: Myocardial Infarction ([place]) Additional Family Medical History / Comment(s): Father of a [place] at the age of 57yrs. Medications and Allergies Home Medications Medication Instructions Recorded Confirmed Type Aspirin 325 mg PO DAILY 10/13/16 02/16/20 History Carvedilol 25 mg PO BID 10/13/16 02/16/20 History Ondansetron HCl [Zofran] 8 mg PO Q8H PRN 12/12/19 02/16/20 History HYDROcodone/APAP 7.5-325MG [[place] 1 tab PO Q6HR PRN #21 tab 12/15/19 02/16/20 Rx 7.5-325] Baclofen [Lioresal] 5 mg PO BID PRN 02/16/20 02/16/20 History Lisinopril [Zestril] 10 mg PO DAILY 02/16/20 02/16/20 History amLODIPine [Norvasc] 10 mg PO DAILY 02/16/20 02/16/20 History Allergies Allergy/AdvReac Type Severity Reaction Status Date / Time No Known Allergies Allergy Verified 02/16/20 12:02 Physical Exam Vitals: Vital Signs Temp Pulse Pulse Resp BP Pulse Ox 02/16/20 14:53 64 17 123/55 02/16/20 13:50 68 17 120/91 02/16/20 13:32 58 L 16 107/60 99 02/16/20 13:05 63 17 96/57 95 02/16/20 13:00 64 02/16/20 12:46 64 18 99/76 98 02/16/20 12:35 65 02/16/20 12:30 65 18 76/50 02/16/20 12:22 65 03/27/20 12:15 67 18 77/43 03/27/20 11:53 57 L 18 101/67 99 02/16/20 10:57 96.9 F L 63 20 95/48 97 Intake and Output 02/16/20 02/16/20 02/16/20 06:59 14:59 22:59 Other: Weight 94.347 kg Constitutional: No acute distress, conversant, pleasant Eyes: Anicteric sclerae, moist conjunctiva, no lid-lag, PERRLA ENMT: NC/AT,Oropharynx clear, no erythema, exudates Neck:Supple, FROM, no masses, or JVD, No carotid bruits; No thyromegaly Lungs: Clear to auscultation, Clear to percussion, Normal respiratory effort, no accessory muscle use Cardiovascular: Heart regular in rate and rhythm, No murmurs, gallops, or rubs no peripheral edema Abdominal: Soft Nontender, nom distended, no guarding, no rebound or rigidity, Normoactive bowel sounds No hepatomegaly, No splenomegaly, No palpable mass No abdominal wall hernia noted Skin: Stasis skin changes with some erythema and blisters that are broken with some discharge Extremities:No digital cyanosis No clubbing, Pedal pulses intact and symmetrical Radial pulses intact and symmetrical Normal gait and station, No calf tenderness Psychiatric: Alert and oriented to person, place and time, Appropriate affect Intact judgement Neuro: Muscles Strength 5/5 in all 4 extremities, Sensation to light touch grossly present throughout, Cranial nerves II-XII grossly intact. No focal sensory deficits Results CBC & Chem 7: 02/16/20 11:14 02/16/20 12:35 Labs: Abnormal Lab Results - Last 24 Hours (Table) 02/16/20 02/16/20 02/16/20 Range/Units 11:14 11:14 12:20 RBC 3.67 L (3.80-5.40) m/uL MCV 100.4 H (80.0-100.0) fL Lymphocytes # 0.6 L (1.0-4.8) k/uL ESR 25 H (0-20) mm/hr Potassium 6.1 H* (3.5-5.1) mmol/L Chloride 112 H (98-107) mmol/L Carbon Dioxide 20 L (22-30) mmol/L BUN 48 H (7-17) mg/dL Creatinine 2.43 H (0.52-1.04) mg/dL Magnesium 2.7 H (1.6-2.3) mg/dL AST 42 H (14-36) U/L C-Reactive Protein 81.1 H (<10.0) mg/L Total Protein 5.9 L (6.3-8.2) g/dL Albumin 3.3 L (3.5-5.0) g/dL Urine Appearance Cloudy H (Clear) Urine Protein 1+ H (Negative) Urine Ketones Trace H (Negative) Urine Blood Moderate H (Negative) Urine Nitrite Positive H (Negative) Ur Leukocyte Esterase Large H (Negative) Urine RBC 10 H (0-5) /hpf Urine WBC 97 H (0-5) /hpf Urine WBC Clumps Occasional H (None) /hpf Ur Squamous Epith Cells 6 H (0-4) /hpf Triple Phos Crystals Moderate H (None) /hpf Urine Bacteria Many H (None) /hpf Urine Mucus Rare H (None) /hpf 02/16/20 Range/Units 12:35 RBC (3.80-5.40) m/uL MCV (80.0-100.0) fL Lymphocytes # (1.0-4.8) k/uL ESR (0-20) mm/hr Potassium 5.4 H (3.5-5.1) mmol/L Chloride (98-107) mmol/L Carbon Dioxide (22-30) mmol/L BUN (7-17) mg/dL Creatinine (0.52-1.04) mg/dL Magnesium (1.6-2.3) mg/dL AST (14-36) U/L C-Reactive Protein (<10.0) mg/L Total Protein (6.3-8.2) g/dL Albumin (3.5-5.0) g/dL Urine Appearance (Clear) Urine Protein (Negative) Urine Ketones (Negative) Urine Blood (Negative) Urine Nitrite (Negative) Ur Leukocyte Esterase (Negative) Urine RBC (0-5) /hpf Urine WBC (0-5) /hpf Urine WBC Clumps (None) /hpf Ur Squamous Epith Cells (0-4) /hpf Triple Phos Crystals (None) /hpf Urine Bacteria (None) /hpf Urine Mucus (None) /hpf Thrombosis Risk Factor Assmnt - Choose All That Apply Any of the Below Risk Factors Present?: Yes Each Factor Represents 1 point: Obesity (BMI >25), Sepsis (< 1month) Other Risk Factors: Yes Each Risk Factor Represents 2 Points: Age 61-74 years Other congenital or acquired thrombophilia - If yes, enter type in comment: No Thrombosis Risk Factor Assessment Total Risk Factor Score: 4 Thrombosis Risk Factor Assessment Level: Moderate Risk Assessment and Plan Assessment: Urinary tract infection - Check urine cultures - Empiric treatment with cefepime Bilateral lower extremity cellulitis - Continue cefepime, discontinue IV vancomycin in the setting of severe stage IV chronic kidney disease -Consult ID await recommendations Generalized weakness with fall - Consult PTOT -Presumed secondary to urinary tract infection Chronic systolic CHF with EF 30% -Lasix held -Hold lisinopril secondary to hyperkalemia, continue with Coreg Hyperkalemia, mild -Received temporizing measures such as Kayexalate in the ER -Hold lisinopril, Lasix -Repeat in a.m. Morbid obesity - weight loss CKD IV, baseline Cr 2.3 - Follow closely with lasix use - avoid additional nephrotoxic agents - follow Cr -We'll consult nephrology Functional debility - PT/OT - suspect will need SNF on discharge. hypermagnesemia - Due to chronic kidney disease Chronic: HTN HLD CAD Arthritis The patient is admitted with an anticipated greater than 2 midnight stay for evaluation of congestive heart failure. Surrogate decision-maker: CODE STATUS:DNR per patient, has had multiple discussion with Luisana DVT prophylaxis: Heparin Discussed with: Patient, nursing, ED physician Anticipated discharge date: 2-[address]: SNF A total of 70 minutes was spent on the care of this complex patient more than 50% of the time was spent in counseling and care coordination.
--- NOTE | 2020-02-17 00:57 | P.CONS ---
History of Present Illness - Reason for Consult Consult date: 02/16/20 cellulitis and UTI Requesting physician: Naren Hardwick - Chief Complaint Weakness x few days - History of Present Illness Patient is a 77-year-old female presenting to the ER at [facility] today with a chief complaints of increasing weakness and swell ing to the lower extremity patient normally walks with a walker however for the last few days. Hard time standing and moving around patient was have significant swelling lower extremity and did have some superficial ulceration and noticed to have more redness to the leg with some clear drainage patient denies having any headache no chest pain no shortness of breath occasional cough no nausea vomiting no abdominal pain or any diarrhea patient has been evaluated by the ER physician on arrival to the ER the patient has been afebrile patient did have a normal white count potassium was high at 6.1 patient did have a positive UA he did receive a dose of cefepime in the ER she was continued with t he vancomycin for extremity cellulitis admitted to the hospital infectious was consulted for further recommendation regarding antibiotic therapy. Patient also complaining of some urinary burning and frequency for the last few days but no suprapubic or flank pain Review of Systems Positive point has been mentioned in HPI rest of the systems are negative Past Medical History Past Medical History: Coronary Artery Disease (CAD), Heart Failure, Hyperlipidemia, Hypertension, Myocardial Infarction ([place]), Osteoarthritis (OA), Renal Disease Additional Past Medical History / Comment(s): Statin induced myopathy, arthritis in multiple joints, chronic pain especially in bilateral arms/legs, balance issues d/t R knee/L hip pain, pt believes she has some R foot drop, 2009 [place] with CHF and respiratory failure/vented, CKD stage IV, diverticulitis with bowel resection/colostomy with reversal, sinus issues, Last Myocardial Infarction Date:: 2009 History of Any Multi-Drug Resistant Organisms: None Reported Past Surgical History: Bowel Resection, Heart Catheterization With Stent, Hernia Repair, Tonsillectomy, Tubal Ligation Additional Past Surgical History / Comment(s): Bowel resection with colostomy/reversal, colonoscopies, open ventral hernia repair, D&C, Past Anesthesia/Blood Transfusion Reactions: No Reported Reaction Date of Last Stent Placement:: 2009 Past Psychological History: No Psychological Hx Reported Smoking Status: Former smoker Past Alcohol Use History: None Reported Past Drug Use History: None Reported - Past Family History Mother Family Medical History: Congestive Heart Failure (CHF) Additional Family Medical History / Comment(s): Mother of CHF in her early 80s. Father Family Medical History: Myocardial Infarction ([place]) Additional Family Medical History / Comment(s): Father of a [place] at the age of 57yrs. Medications and Allergies Home Medications Medication Instructions Recorded Confirmed Type Aspirin 325 mg PO DAILY 10/13/16 02/16/20 History Carvedilol 25 mg PO BID 10/13/16 02/16/20 History Ondansetron HCl [Zofran] 8 mg PO Q8H PRN 12/12/19 02/16/20 History HYDROcodone/APAP 7.5-325MG [[place] 1 tab PO Q6HR PRN #21 tab 12/15/19 02/16/20 Rx 7.5-325] Baclofen [Lioresal] 5 mg PO BID PRN 02/16/20 02/16/20 History Lisinopril [Zestril] 10 mg PO DAILY 02/16/20 02/16/20 History amLODIPine [Norvasc] 10 mg PO DAILY 02/16/20 02/16/20 History Allergies Allergy/AdvReac Type Severity Reaction Status Date / Time No Known Allergies Allergy Verified 02/16/20 12:02 Physical Exam Vitals: Vital Signs Temp Pulse Pulse Resp BP BP Pulse Ox 02/16/20 20:00 98 F 58 L 16 92/64 96 02/16/20 16:00 97.5 F L 72 16 93/59 95 02/16/20 15:26 63 17 123/76 96 02/16/20 14:53 64 17 123/55 02/16/20 13:50 68 17 120/91 02/16/20 13:32 58 L 16 107/60 99 02/16/20 13:05 63 17 96/57 95 02/16/20 13:00 64 02/16/20 12:46 64 18 99/76 98 02/16/20 12:35 65 02/16/20 12:30 65 18 76/50 02/16/20 12:22 65 02/16/20 12:15 67 18 77/43 02/16/20 11:53 57 L 18 101/67 99 02/16/20 10:57 96.9 F L 63 20 95/48 97 Intake and Output 02/16/20 02/16/20 02/16/20 06:59 14:59 22:59 Intake Total 720 Balance 720 Intake: Oral 720 Other: Voiding Method Bedpan Weight 94.347 kg GENERAL DESCRIPTION: Elderly female lying in bed, no distress. No tachypnea or accessory muscle of respiration use. HEENT: Shows Pallor , no scleral icterus. Oral mucous membrane is dry. NECK: Trachea central, no thyromegaly. LUNGS: Unlabored breathing. Decreased breath sound at the base. No wheeze or crackle. HEART: S1, S2, regular rate and rhythm. ABDOMEN: Soft, no tenderness , guarding or rigidity EXTREMITIES: Diffuse swelling sKIN: No rash, no masses palpable. NEUROLOGICAL: The patient is awake, alert, oriented x3, mood and affect normal. Results CBC & Chem 7: 02/16/20 11:14 02/16/20 12:35 Labs: Abnormal Lab Results - Last 24 Hours (Table) 02/16/20 02/16/20 02/16/20 Range/Units 11:14 11:14 12:20 RBC 3.67 L (3.80-5.40) m/uL MCV 100.4 H (80.0-100.0) fL Lymphocytes # 0.6 L (1.0-4.8) k/uL ESR 25 H (0-20) mm/hr Potassium 6.1 H* (3.5-5.1) mmol/L Chloride 112 H (98-107) mmol/L Carbon Dioxide 20 L (22-30) mmol/L BUN 48 H (7-17) mg/dL Creatinine 2.43 H (0.52-1.04) mg/dL Magnesium 2.7 H (1.6-2.3) mg/dL AST 42 H (14-36) U/L C-Reactive Protein 81.1 H (<10.0) mg/L Total Protein 5.9 L (6.3-8.2) g/dL Albumin 3.3 L (3.5-5.0) g/dL Urine Appearance Cloudy H (Clear) Urine Protein 1+ H (Negative) Urine Ketones Trace H (Negative) Urine Blood Moderate H (Negative) Urine Nitrite Positive H (Negative) Ur Leukocyte Esterase Large H (Negative) Urine RBC 10 H (0-5) /hpf Urine WBC 97 H (0-5) /hpf Urine WBC Clumps Occasional H (None) /hpf Ur Squamous Epith Cells 6 H (0-4) /hpf Triple Phos Crystals Moderate H (None) /hpf Urine Bacteria Many H (None) /hpf Urine Mucus Rare H (None) /hpf 02/16/20 Range/Units 12:35 RBC (3.80-5.40) m/uL MCV (80.0-100.0) fL Lymphocytes # (1.0-4.8) k/uL ESR (0-20) mm/hr Potassium 5.4 H (3.5-5.1) mmol/L Chloride (98-107) mmol/L Carbon Dioxide (22-30) mmol/L BUN (7-17) mg/dL Creatinine (0.52-1.04) mg/dL Magnesium (1.6-2.3) mg/dL AST (14-36) U/L C-Reactive Protein (<10.0) mg/L Total Protein (6.3-8.2) g/dL Albumin (3.5-5.0) g/dL Urine Appearance (Clear) Urine Protein (Negative) Urine Ketones (Negative) Urine Blood (Negative) Urine Nitrite (Negative) Ur Leukocyte Esterase (Negative) Urine RBC (0-5) /hpf Urine WBC (0-5) /hpf Urine WBC Clumps (None) /hpf Ur Squamous Epith Cells (0-4) /hpf Triple Phos Crystals (None) /hpf Urine Bacteria (None) /hpf Urine Mucus (None) /hpf Microbiology - Last 24 Hours (Table) 02/16/20 12:20 Urine Culture - Preliminary Urine,Voided Assessment and Plan Assessment: patient presented hospital with generalized weakness which is likely multifactorial in this patient who did have diffuse lower extremity cellulitis likely streptococcal disease also has some urinary symptoms and a positive UA with concern for a enteric gram-negative urinary tract infection. (1) Bilateral lower leg cellulitis Current Visit: Yes Status: Acute Code(s): L03.116 - CELLULITIS OF LEFT LOWER LIMB; L03.115 - CELLULITIS OF RIGHT LOWER LIMB SNOMED Code(s): 401627795 (2) UTI (urinary tract infection) Current Visit: Yes Status: Acute Code(s): N39.0 - URINARY TRACT INFECTION, SITE NOT SPECIFIED SNOMED Code(s): 15197684 Plan: 1 vancomycin pharmacy to dose her with a target trough of 15 while watching her kidney function and Vanco trough closely.- 2-Rocephin 1 g daily 3-local wound care with dry Aquacel silver dressing and Shree wrap to the leg from just above the toe to below the knee to be changed daily We will follow on clinical condition and cultures to further adjust medication if needed Thank you for this consultation we will follow the patient along with you Time with Patient: Greater than 30
[2020-02-17] MEDS: MELATONIN 3 MG TABLET PO SCH ×2 (01:20→22:00)
[2020-02-17] MEDS ORDERED: VANCOMYCIN 1,500 MG in SODIUM CHLORIDE 0.9% 250 ML IVPB ONE (09:00)
[2020-02-17] MEDS: ASPIRIN 325 MG TAB PO SCH (09:48)
--- NOTE | 2020-02-17 10:45 | P.NPCON ---
History of Present Illness - Reason for Consult acute renal failure, hyperkalemia - Chief Complaint Cellulitis, chronic kidney disease and acute kidney injury - History of Present Illness This is a 77-year-old female seen in consultation because of hyperkalemia, acute kidney injury and chronic kidney disease She was admitted with cellulitis of both extremities. She has chronic lymphedema. She is started on vancomycin and ceftriaxone. She denies taking any nonsteroidals at home she is on lisinopril. She has never seen a roof slater in the past. She has had chronic kidney disease with creatinines 2.1 at its baseline since 2014. She is had acute kidney injury in the interim since then a peak creatinine of 5.65 on 12/25/2025 weeks ago She denies any nausea vomiting diarrhea she's had colostomy and reversal in the past. Her past history significant coronary artery disease, with a stent in the past hypertension statin-induced myopathy, history of bowel resection with colostomy and reversal, atrial fibrillation Past Medical History Past Medical History: Coronary Artery Disease (CAD), Heart Failure, Hyperlipidemia, Hypertension, Myocardial Infarction ([place]), Osteoarthritis (OA), Renal Disease Additional Past Medical History / Comment(s): Statin induced myopathy, arthritis in multiple joints, chronic pain especially in bilateral arms/legs, balance issues d/t R knee/L hip pain, pt believes she has some R foot drop, 2009 [place] with CHF and respiratory failure/vented, CKD stage IV, diverticulitis with bowel resection/colostomy with reversal, sinus issues, Last Myocardial Infarction Date:: 2009 History of Any Multi-Drug Resistant Organisms: None Reported Past Surgical History: Bowel Resection, Heart Catheterization With Stent, Hernia Repair, Tonsillectomy, Tubal Ligation Additional Past Surgical History / Comment(s): Bowel resection with colostomy/reversal, colonoscopies, open ventral hernia repair, D&C, Past Anesthesia/Blood Transfusion Reactions: No Reported Reaction Date of Last Stent Placement:: 2009 Past Psychological History: No Psychological Hx Reported Smoking Status: Former smoker Past Alcohol Use History: None Reported Past Drug Use History: None Reported - Past Family History Mother Family Medical History: Congestive Heart Failure (CHF) Additional Family Medical History / Comment(s): Mother of CHF in her early 80s. Father Family Medical History: Myocardial Infarction ([place]) Additional Family Medical History / Comment(s): Father of a [place] at the age of 57yrs. Medications and Allergies Home Medications Medication Instructions Recorded Confirmed Type Aspirin 325 mg PO DAILY 10/13/16 02/16/20 History Carvedilol 25 mg PO BID 10/13/16 02/16/20 History Ondansetron HCl [Zofran] 8 mg PO Q8H PRN 12/12/19 02/16/20 History HYDROcodone/APAP 7.5-325MG [[place] 1 tab PO Q6HR PRN #21 tab 12/15/19 02/16/20 Rx 7.5-325] Baclofen [Lioresal] 5 mg PO BID PRN 02/16/20 02/16/20 History Lisinopril [Zestril] 10 mg PO DAILY 02/16/20 02/16/20 History amLODIPine [Norvasc] 10 mg PO DAILY 02/16/20 02/16/20 History Allergies Allergy/AdvReac Type Severity Reaction Status Date / Time No Known Allergies Allergy Verified 02/16/20 12:02 Physical Exam Vitals: Vital Signs Temp Pulse Pulse Resp BP BP Pulse Ox 02/17/20 09:00 97.5 F L 68 16 92/53 92 L 02/17/20 04:00 62 16 96 02/17/20 00:00 63 16 96/66 95 02/16/20 20:00 98 F 58 L 16 92/64 96 02/16/20 16:00 97.5 F L 72 16 93/59 95 02/16/20 15:26 63 17 123/76 96 02/16/20 14:53 64 17 123/55 02/16/20 13:50 68 17 120/91 02/16/20 13:32 58 L 16 107/60 99 02/16/20 13:05 63 17 96/57 95 02/16/20 13:00 64 02/16/20 12:46 64 18 99/76 98 02/16/20 12:35 65 02/16/20 12:30 65 18 76/50 02/16/20 12:22 65 02/16/20 12:15 67 18 77/43 02/16/20 11:53 57 L 18 101/67 99 02/16/20 10:57 96.9 F L 63 20 95/48 97 Intake and Output 03/27/20 03/28/20 03/28/20 22:59 06:59 14:59 Intake Total 720 490 360 Balance 720 490 360 Intake: Intake, IV Titration 50 Amount cefTRIAXone 1 gm In 50 Sodium Chloride 0.9% 50 ml @ 100 mls/hr IVPB Q24H [facility] Rx#:[id number] Oral 720 440 360 Other: Voiding Method Bedpan Bedpan # Voids 1 1 # Bowel Movements 1 1 Weight 79 kg On examination she is awake alert oriented comfortable HEENT exam no JVP neck is supple no facial asymmetry Lungs are not examined Heart sounds not examined Abdomen soft nontender Extremity exam reveals chronic stasis edema with some oozing and some mild cellulitis Neurologically awake alert oriented Results - Lab Results Most recent lab results Calcium 9.0 mg/dL (8.4-10.2) 02/16/20 11:14 Magnesium 2.7 mg/dL (1.6-2.3) H 02/16/20 11:14 02/16/20 11:14 02/16/20 12:35 Assessment and Plan Plan: Impression 1 acute kidney injury secondary to combination of cellulitis possibly mildly dehydrated and low blood pressure. 2. Hyperkalemia secondary to combination of acute kidney injury, as well as lisinopril. Rule out neurogenic bladder. 3. Mild degree of non-gap acidosis from chronic kidney disease 4.. Chronic kidney disease stage III, secondary to nephrosclerosis and, history of hypertension 5. Chronic stasis edema moderate with cellulitis bilaterally with closing 6. Mild degree of anemia hemoglobin is 11.5 7. History of atrial fibrillation, coronary artery disease with stent in the past 8. History of bowel resection with history of diverticulitis and colostomy and reversal in the past Recommendation 1. Check post void residual 2. Start IV normal saline at 75 an hour to induce potassium loss 3. Patient has been treated with cocktail. 4. Try to avoid nephrotoxic medication including vancomycin 5. Repeat potassium in about 6 hours. 5. Will check of her bicarb improves as in the past her bicarb has been within normal range and therefore I'll not start her on any oral bicarbonate
--- NOTE | 2020-02-17 13:10 | P.PN ---
Subjective Progress Note Date: 02/17/20 Patient seen and examined at bedside reporting weakness and fatigue, Has not been seen by physical therapy as it's the weekend. No acute events overnight patient continued on Rocephin and vancomycin per ID Objective - Vital Signs Vital signs: Vital Signs Temp 97.5 F L 02/17/20 09:00 Pulse 72 02/17/20 11:30 Resp 16 02/17/20 11:30 BP 107/63 02/17/20 11:30 Pulse Ox 91 L 02/17/20 11:30 Intake & Output 02/16/20 02/17/20 02/17/20 18:59 06:59 18:59 Intake Total 240 970 720 Balance 240 970 720 Weight 94.347 kg 79 kg Intake: Intake, IV Titration 50 Amount cefTRIAXone 1 gm In 50 Sodium Chloride 0.9% 50 ml @ 100 mls/hr IVPB Q24H [facility] Rx#:[id number] Oral 240 920 720 Other: Voiding Method Bedpan Bedpan Bedpan # Voids 1 # Bowel Movements 1 - Exam Constitutional: No acute distress, conversant, pleasant Eyes: Anicteric sclerae, moist conjunctiva, no lid-lag, PERRLA ENMT: NC/AT,Oropharynx clear, no erythema, exudates Neck:Supple, FROM, no masses, or JVD, No carotid bruits; No thyromegaly Lungs: Clear to auscultation, Clear to percussion, Normal respiratory effort, no accessory muscle use Cardiovascular: Heart regular in rate and rhythm, No murmurs, gallops, or rubs no peripheral edema Abdominal: Soft Nontender, nom distended, no guarding, no rebound or rigidity, Normoactive bowel sounds No hepatomegaly, No splenomegaly, No palpable mass No abdominal wall hernia noted Skin: Stasis skin changes with some erythema and blisters that are broken with some discharge Extremities:No digital cyanosis No clubbing, Pedal pulses intact and symmetrical Radial pulses intact and symmetrical Normal gait and station, No calf tenderness Psychiatric: Alert and oriented to person, place and time, Appropriate affect Intact judgement Neuro: Muscles Strength 5/5 in all 4 extremities, Sensation to light touch grossly present throughout, Cranial nerves II-XII grossly intact. No focal se nsory deficits - Labs CBC & Chem 7: 02/16/20 11:14 02/16/20 12:35 Labs: Abnormal Lab Results - Last 24 Hours (Table) 02/16/20 02/16/20 Range/Units 12:20 12:35 Potassium 5.4 H (3.5-5.1) mmol/L Urine Appearance Cloudy H (Clear) Urine Protein 1+ H (Negative) Urine Ketones Trace H (Negative) Urine Blood Moderate H (Negative) Urine Nitrite Positive H (Negative) Ur Leukocyte Esterase Large H (Negative) Urine RBC 10 H (0-5) /hpf Urine WBC 97 H (0-5) /hpf Urine WBC Clumps Occasional H (None) /hpf Ur Squamous Epith Cells 6 H (0-4) /hpf Triple Phos Crystals Moderate H (None) /hpf Urine Bacteria Many H (None) /hpf Urine Mucus Rare H (None) /hpf Microbiology - Last 24 Hours (Table) 02/16/20 12:20 Urine Culture - Preliminary Urine,Voided Assessment and Plan Assessment: Urinary tract infection - Check urine cultures - Empiric treatment with ceftriaxone Bilateral lower extremity cellulitis - Continue Rocephin and vancomycin per ID recommendations Generalized weakness with fall - Consult PTOT -Presumed secondary to urinary tract infection Chronic systolic CHF with EF 30% -Lasix held -Hold lisinopril secondary to hyperkalemia, continue with Coreg Hyperkalemia, mild -Received temporizing measures such as Kayexalate in the ER -Hold lisinopril, Lasix -Repeat in a.m. Morbid obesity - weight loss CKD IV, baseline Cr 2.3 - Follow closely with lasix use - avoid additional nephrotoxic agents - follow Cr -We'll consult nephrology Functional debility - PT/OT - suspect will need SNF on discharge. hypermagnesemia - Due to chronic kidney disease Chronic: HTN HLD CAD Arthritis The patient is admitted with an anticipated greater than 2 midnight stay for evaluation of congestive heart failure. Surrogate decision-maker: CODE STATUS:DNR per patient, has had multiple discussion with Luisana DVT prophylaxis: Heparin Discussed with: Patient, nursing, ED physician Anticipated discharge date: 2-[address]: SNF A total of 70 minutes was spent on the care of this complex patient more than 50% of the time was spent in counseling and care coordination.
[2020-02-17] MEDS: SODIUM CHLORIDE 0.9% 1,000 ML IV SCH (13:40)
[2020-02-17] MEDS: HYDROcodone/APAP 7.5-325MG 1 EACH TAB PO PRN ×2 (14:32→22:00)
[2020-02-17 16:51] LABS: Calcium 8.9 mg/dL (8.4-10.2); Potassium 4.7 mmol/L (3.5-5.1)
[2020-02-18] MEDS: SODIUM CHLORIDE 0.9% 1,000 ML IV SCH ×2 (02:35→20:35)
[2020-02-18] MEDS: HYDROcodone/APAP 7.5-325MG 1 EACH TAB PO PRN ×3 (05:10→20:58)
--- NOTE | 2020-02-18 06:52 | PN ---
PROGRESS NOTE DATE OF SERVICE: 02/17/2020. REASON FOR FOLLOWUP: UTI and bilateral lower extremity wound and cellulitis. INTERVAL HISTORY: The patient is currently afebrile. The patient is breathing comfortably. Denies having any chest pain or shortness of breath or cough. No nausea, vomiting or pain to the lower extremity. PHYSICAL EXAMINATION: Blood pressure 94/48 with a pulse of 75. Temperature 97.4. She is 91% on room air. General description: The patient is an elderly female lying in bed in no distress. Respiratory system: Unlabored breathing. Clear to auscultation anteriorly. Heart S1, S2. Regular rate and rhythm. Abdomen soft, no tenderness. Legs are currently wrapped up. No obvious drainage on the dressing. LABS: BUN of 43, creatinine 240. Urine showing gram-negative. Blood culture so far negative. DIAGNOSTIC IMPRESSION AND PLAN: 1. Patient admitted to the hospital with generalized weakness which is likely multifactorial. This patient did have a component of urinary tract infection. Urine is currently showing Gram-negative and patient is covered with Rocephin 1 g daily to continue. 2. Patient with bilateral lower extremity ulcers and cellulitis, covered with vancomycin. Local care to continue with Aquacel Silver dressing and Shree wrap and monitor clinical course closely. MMODL / IJN: [id number] /
[2020-02-18 07:35] LABS: Basophils % (A) 0 %; Eosinophils # (A) 0.3 k/uL (0-0.7); Eosinophils % (A) 4 %; HCT 35.5 % (34.0-46.0); HGB 11.1 gm/dL (11.4-16.0); Hypochromasia Moderate; Lymphocytes # (A) 0.8 k/uL (1.0-4.8); Lymphocytes % (A) 10 %; MCH 31.6 pg (25.0-35.0); MCHC 31.3 g/dL (31.0-37.0); MCV 101.2 fL (80.0-100.0); Macrocytosis Slight; Mean Platelet Volume 8.9; Monocytes # (A) 0.6 k/uL (0-1.0); Monocytes % (A) 7 %; Neutrophils # (A) 6.1 k/uL (1.3-7.7); Neutrophils % (A) 77 %; Platelet Count 202 k/uL (150-450); RBC 3.51 m/uL (3.80-5.40); RDW 14.4 % (11.5-15.5)
[2020-02-18 08:10] LABS: Calcium 8.7 mg/dL (8.4-10.2); Potassium 4.6 mmol/L (3.5-5.1)
[2020-02-18 08:15] LABS: Vancomycin,Random 16.5 ug/mL
[2020-02-18] MEDS: ASPIRIN 325 MG TAB PO SCH (09:13)
--- NOTE | 2020-02-18 09:22 | P.PN ---
Subjective Progress Note Date: 02/18/20 Patient seen and examined at bedside reporting weakness and fatigue, reports that she slept well after having melatonin had her breakfast today and had a bowel movement reports that her redness and erythema in her legs are improving. Continues to be afebrile, Creatinine trending down from 2.43-2.13, random vancomycin trough 16.5, urine culture preliminary growing gram-negative bacilli blood culture negative Objective - Vital Signs Vital signs: Vital Signs Temp 97.8 F 02/18/20 07:50 Pulse 98 02/18/20 07:50 Resp 18 02/18/20 07:50 BP 133/78 02/18/20 07:50 Pulse Ox 90 L 02/18/20 07:50 Intake & Output 02/17/20 02/18/20 02/18/20 18:59 06:59 18:59 Intake Total 840 1080 240 Output Total 1475 Balance 840 -395 240 Weight 80 kg Intake: Intake, IV Titration 600 Amount Sodium Chloride 0.9% 1, 600 000 ml @ 75 mls/hr IV . [id number] [facility] Rx#:[id number] Oral 840 480 240 Output: Urine 1475 Other: Voiding Method Bedpan Bedpan # Bowel Movements 1 - Exam Constitutional: No acute distress, conversant, pleasant Eyes: Anicteric sclerae, moist conjunctiva, no lid-lag, PERRLA ENMT: NC/AT,Oropharynx clear, no erythema, exudates Neck:Supple, FROM, no masses, or JVD, No carotid bruits; No thyromegaly Lungs: Clear to auscultation, Clear to percussion, Normal respiratory effort, no accessory muscle use Cardiovascular: Heart regular in rate and rhythm, No murmurs, gallops, or rubs no peripheral edema Abdominal: Soft Nontender, nom distended, no guarding, no rebound or rigidity, Normoactive bowel sounds No hepatomegaly, No splenomegaly, No palpable mass No abdominal wall hernia noted Skin: Stasis skin changes with some erythema and blisters that are broken with some discharge Extremities:No digital cyanosis No clubbing, Pedal pulses intact and symmetrical Radial pulses intact and symmetrical Normal gait and station, No calf tenderness Psychiatric: Alert and oriented to person, place and time, Appropriate affect Intact judgement Neuro: Muscles Strength 5/5 in all 4 extremities, Sensation to light touch grossly present throughout, Cranial nerves II-XII grossly intact. No focal sensory deficits - Labs CBC & Chem 7: 02/18/20 07:09 02/18/20 07:09 Labs: Abnormal Lab Results - Last 24 Hours (Table) 02/17/20 02/18/20 02/18/20 Range/Units 16:11 07:09 07:09 RBC 3.51 L (3.80-5.40) m/uL Hgb 11.1 L (11.4-16.0) gm/dL MCV 101.2 H (80.0-100.0) fL Lymphocytes # 0.8 L (1.0-4.8) k/uL Chloride 114 H 116 H (98-107) mmol/L BUN 43 H 38 H (7-17) mg/dL Creatinine 2.40 H 2.13 H (0.52-1.04) mg/dL Glucose 115 H (74-99) mg/dL Microbiology - Last 24 Hours (Table) 02/16/20 12:20 Urine Culture - Preliminary Urine,Voided Gram Neg Bacilli 02/16/20 12:35 Blood Culture - Preliminary Blood No Growth after 24 hours Assessment and Plan Assessment: Gram-negative Urinary tract infection - Check urine cultures - Empiric treatment with ceftriaxone Bilateral lower extremity cellulitis - Continue Rocephin and vancomycin per ID recommendations Generalized weakness with fall - Consult PTOT -Presumed secondary to urinary tract infection Chronic systolic CHF with EF 30% -Lasix held -Hold lisinopril secondary to hyperkalemia, continue with Coreg Hyperkalemia, mild -Received temporizing measures such as Kayexalate in the ER -Hold lisinopril, Lasix -Repeat in a.m. Morbid obesity - weight loss CKD IV, baseline Cr 2.3 - Follow closely with lasix use - avoid additional nephrotoxic agents - follow Cr -We'll consult nephrology Functional debility - PT/OT - suspect will need SNF on discharge. hypermagnesemia - Due to chronic kidney disease Chronic: HTN HLD CAD Arthritis The patient is admitted with an anticipated greater than 2 midnight stay for evaluation of congestive heart failure. Surrogate decision-maker: CODE STATUS:DNR per patient, has had multiple discussion with Luisana DVT prophylaxis: Heparin Discussed with: Patient, nursing, ED physician Anticipated discharge date: 2-[address]: SNF A total of 70 minutes was spent on the care of this complex patient more than 50% of the time was spent in counseling and care coordination.
--- NOTE | 2020-02-18 10:21 | P.PN ---
Subjective Progress Note Date: 02/18/20 Principal diagnosis: This is a 69-year-old female seen in consultation because of acute kidney injury from low blood pressures, cellulitis of both legs, hyperkalemia secondary acute kidney injury. She has chronic lymphedema. Hyperkalemia is deemed to be from lisinopril as well as the acute kidney injury. She was started on IV fluids yesterday with normal saline at 75 an hour and she responded well to this with resolution of acute kidney injury and hyperkalemia. She denies any shortness of breath. Appetite is good. No fever chills no nausea vomiting diarrhea She is known with coronary artery disease hypertension right foot drop in the past diverticulitis with bowel resection and colostomy reversal Objective - Vital Signs Vital signs: Vital Signs Temp 97.8 F 02/18/20 07:50 Pulse 98 02/18/20 07:50 Resp 18 02/18/20 07:50 BP 133/78 02/18/20 07:50 Pulse Ox 90 L 02/18/20 07:50 Intake & Output 02/17/20 02/18/20 02/18/20 18:59 06:59 18:59 Intake Total 840 1080 240 Output Total 1475 Balance 840 -395 240 Weight 80 kg Intake: Intake, IV Titration 600 Amount Sodium Chloride 0.9% 1, 600 000 ml @ 75 mls/hr IV . [id number] COUNTS INCLUDE 234 BEDS AT THE [facility] Rx#:[id number] Oral 840 480 240 Output: Urine 1475 Other: Voiding Method Bedpan Bedpan # Voids 1 # Bowel Movements 1 1 Exam she is awake alert oriented comfortable HEENT exam no JVP neck is supple no facial asymmetry Lungs are clear to auscultation all be it is somewhat reduced air entry Heart sounds are unremarkable for any murmur rub gallop Abdomen soft obese Abdomen is nontender Extremity exam was moderate edema with bilateral dressings on her feet and lower legs Neurologically awake alert oriented and comfortable - Labs CBC & Chem 7: 02/18/20 07:09 02/18/20 07:09 Labs: Abnormal Lab Results - Last 24 Hours (Table) 02/17/20 02/18/20 02/18/20 Range/Units 16:11 07:09 07:09 RBC 3.51 L (3.80-5.40) m/uL Hgb 11.1 L (11.4-16.0) gm/dL MCV 101.2 H (80.0-100.0) fL Lymphocytes # 0.8 L (1.0-4.8) k/uL Chloride 114 H 116 H (98-107) mmol/L BUN 43 H 38 H (7-17) mg/dL Creatinine 2.40 H 2.13 H (0.52-1.04) mg/dL Glucose 115 H (74-99) mg/dL Microbiology - Last 24 Hours (Table) 02/16/20 12:20 Urine Culture - Preliminary Urine,Voided Gram Neg Bacilli 02/16/20 12:35 Blood Culture - Preliminary Blood No Growth after 24 hours Assessment and Plan Plan: Impression 1 Acute kidney injury secondary to combination of cellulitis possibly mildly dehydrated and low blood pressure. Improved with IV fluids creatinine is back to baseline from 2.4 mg to 2.13 2. Hyperkalemia secondary to combination of acute kidney injury, as well as lisinopril. Rule out neurogenic bladder. Potassium back to normal 3. Mild degree of non-gap acidosis from chronic kidney disease. Bicarb normal 4.. Chronic kidney disease stage III, secondary to nephrosclerosis and, history of hypertension 5. Chronic stasis edema moderate with cellulitis bilaterally with oozing 6. Mild degree of anemia hemoglobin is 11.5 > 11.1 7. History of atrial fibrillation, coronary artery disease with stent in the past 8. History of bowel resection with history of diverticulitis and colostomy and reversal in the past Recommendation 1. Reduce IV fluids to KVO. 2. Monitor labs. 3. Try to avoid nephrotoxic medication including vancomycin 4. Labs tomorrow
[2020-02-18] MEDS ORDERED: VANCOMYCIN 1,500 MG in SODIUM CHLORIDE 0.9% 250 ML IVPB ONE (20:00)
[2020-02-18] MEDS: MELATONIN 3 MG TABLET PO SCH (20:58)
[2020-02-19] MEDS: SODIUM CHLORIDE 0.9% 1,000 ML IV SCH (04:03)
[2020-02-19] MEDS: HYDROcodone/APAP 7.5-325MG 1 EACH TAB PO PRN ×3 (04:16→22:55)
--- NOTE | 2020-02-19 05:56 | PN ---
PROGRESS NOTE DATE OF SERVICE: 02/18/2020 REASON FOR FOLLOWUP: 1. Urinary tract infection. 2. Bilateral lower extremity cellulitis. INTERVAL HISTORY: The patient is currently afebrile. Patient is breathing comfortably. The patient denies having any chest pain or shortness of breath or cough. No abdominal pain or any diarrhea. PHYSICAL EXAMINATION: Blood pressure is 115/56, pulse of 75, temperature of 98. She is 91% on room air. General description is an elderly female lying in bed in no distress RESPIRATORY SYSTEM: Unlabored breathing, clear to auscultation anteriorly. HEART: S1, S2. Regular rate and rhythm. ABDOMEN: Soft, no tenderness Patient noticed to have a necrotic blister on the left posterior thigh and on the left labia, but no significant surrounding redness. LABS: Hemoglobin is 11.1, white count 8.0. BUN of 38, creatinine is 2.13. DIAGNOSTIC IMPRESSION AND PLAN: 1. Patient with urinary tract infection, urine with Proteus and gram-negative covered with Rocephin. 2. Bilateral lower extremity cellulitis. Vanco . Will monitor clinical course closely. Continue local wound care as ordered. Hopefully finish therapy with oral antibiotics. Continue supportive care. MMODL / IJN: [id number] /
[2020-02-19 06:39] LABS: Basophils % (A) 1 %; Eosinophils # (A) 0.4 k/uL (0-0.7); Eosinophils % (A) 5 %; HCT 38.7 % (34.0-46.0); HGB 11.5 gm/dL (11.4-16.0); Hypochromasia Marked; Lymphocytes # (A) 0.9 k/uL (1.0-4.8); Lymphocytes % (A) 11 %; MCH 30.8 pg (25.0-35.0); MCHC 29.8 g/dL (31.0-37.0); MCV 103.5 fL (80.0-100.0); Macrocytosis Slight; Mean Platelet Volume 8.8; Monocytes # (A) 0.7 k/uL (0-1.0); Monocytes % (A) 8 %; Neutrophils # (A) 6.2 k/uL (1.3-7.7); Neutrophils % (A) 74 %; Platelet Count 187 k/uL (150-450); RBC 3.74 m/uL (3.80-5.40); RDW 14.4 % (11.5-15.5); WBC 8.4 k/uL (3.8-10.6)
[2020-02-19 07:03] LABS: Calcium 8.8 mg/dL (8.4-10.2); Potassium 4.9 mmol/L (3.5-5.1)
[2020-02-19] MEDS: ASPIRIN 325 MG TAB PO SCH (09:08)
--- NOTE | 2020-02-19 11:43 | P.PN ---
Subjective Patient is seen in follow-up for chronic kidney disease. GFR is at baseline. She is being treated for cellulitis. Urine output is good. No vomiting or diarrhea. Vital signs are stable. General: The patient appeared well nourished and normally developed. HEENT: Head exam is unremarkable. Neck is without jugular venous distension. LUNGS: Lungs are clear to auscultation and percussion. Breath sounds decreased. HEART: Rate and Rhythm are regular. First and second heart sounds normal. No murmurs, rubs or gallops. ABDOMEN: Nontender. EXTREMITITES: Lower extremities wrapped. Objective - Vital Signs Vital signs: Vital Signs Temp 98.7 F 02/19/20 08:00 Pulse 84 02/19/20 08:00 Resp 20 02/19/20 08:00 BP 124/62 02/19/20 08:00 Pulse Ox 93 L 02/19/20 08:00 Intake & Output 02/18/20 02/19/20 02/19/20 18:59 06:59 18:59 Intake Total 480 240 Output Total 500 940 Balance -20 -940 240 Weight 79.5 kg Intake: Oral 480 240 Output: Urine 500 940 Other: Voiding Method Bedpan Indwelling Catheter Indwelling Catheter Indwelling Catheter # Voids 1 # Bowel Movements 1 - Labs CBC & Chem 7: 02/19/20 05:37 02/19/20 05:37 Labs: Abnormal Lab Results - Last 24 Hours (Table) 02/19/20 02/19/20 Range/Units 05:37 05:37 RBC 3.74 L (3.80-5.40) m/uL MCV 103.5 H (80.0-100.0) fL MCHC 29.8 L (31.0-37.0) g/dL Lymphocytes # 0.9 L (1.0-4.8) k/uL Chloride 116 H (98-107) mmol/L Carbon Dioxide 19 L (22-30) mmol/L BUN 28 H (7-17) mg/dL Creatinine 1.82 H (0.52-1.04) mg/dL Microbiology - Last 24 Hours (Table) 02/16/20 12:20 Urine Culture - Preliminary Urine,Voided Proteus mirabilis Gram Neg Bacilli 02/16/20 12:35 Blood Culture - Preliminary Blood No Growth after 48 hours Assessment and Plan Plan: Assessment: 1. Acute kidney injury mostly prerenal secondary to infection and hypotension. Improved with IV hydration. Creatinine was 2.4 on admission and is down to 1.82 today. 2. Chronic kidney disease stage III secondary to nephrosclerosis. 3. Lower extremity cellulitis maintained on antibiotics. 4. Metabolic acidosis secondary to acute kidney injury. 5. UTI with urine culture positive for Proteus. Plan: Encourage oral intake. Add oral sodium bicarbonate. Avoid nephrotoxins. Continue to monitor renal function and urine output.
--- NOTE | 2020-02-19 12:46 | P.PN ---
Subjective Progress Note Date: 02/19/20 (delayed charting seen at 0945) Principal diagnosis: weakness Patient is a 69-year-old female with a past medical history of coronary artery disease resulting in ischemic cardiomyopathy with ejection fraction of 30%, hypertension, chronic pain, and chronic kidney disease stage IV who presented to the hospital with complaints of severe weakness and falls. On arrival to the emergency department her vital signs were within normal limits. On arrival her potassium was 6.1, creatinine was slightly above baseline at 2.43 with a baseline of 2.2, and she was mildly acidotic. Her BNP was mildly elevated at 6840. CRP elevated at 81.1, and urinalysis showed positive nitrate, positive leukocyte esterase, and white blood cells of 97. She was started on IV fluids and antibiotics. Her lisinopril was held. She was given Lasix for her hyperkalemia along with IV fluids. She is admitted for further monitoring. There was also concern for bilateral lower extremity cellulitis and infectious disease was consulted. They recommended vancomycin and Rocephin as well as Shree wraps to her legs. She was seen by nephrology who recommended continuing with normal saline as well as holding her Lasix and SHREE inhibitor. Patient seen and examined at bedside. She continues want to go to rehab. She reports she is still significantly weak and cannot possibly take care of herself at home. She denies any nausea, vomiting, or diarrhea. She still has a catheter in place. Objective - Vital Signs Vital signs: Vital Signs Temp 98.7 F 02/19/20 08:00 Pulse 84 02/19/20 08:00 Resp 20 02/19/20 08:00 BP 124/62 02/19/20 08:00 Pulse Ox 93 L 02/19/20 08:00 Intake & Output 02/18/20 02/19/20 02/19/20 18:59 06:59 18:59 Intake Total 480 240 Output Total 500 940 Balance -0 240 Weight 79.5 kg Intake: Oral 480 240 Output: Urine 500 940 Other: Voiding Method Bedpan Indwelling Catheter Indwelling Catheter Indwelling Catheter # Voids 1 # Bowel Movements 1 - Labs CBC & Chem 7: 02/19/20 05:37 02/19/20 05:37 Labs: Abnormal Lab Results - Last 24 Hours (Table) 03/30/20 03/30/20 Range/Units 05:37 05:37 RBC 3.74 L (3.80-5.40) m/uL MCV 103.5 H (80.0-100.0) fL MCHC 29.8 L (31.0-37.0) g/dL Lymphocytes # 0.9 L (1.0-4.8) k/uL Chloride 116 H (98-107) mmol/L Carbon Dioxide 19 L (22-30) mmol/L BUN 28 H (7-17) mg/dL Creatinine 1.82 H (0.52-1.04) mg/dL Microbiology - Last 24 Hours (Table) 02/16/20 12:20 Urine Culture - Preliminary Urine,Voided Proteus mirabilis Gram Neg Bacilli 02/16/20 12:35 Blood Culture - Preliminary Blood No Growth after 48 hours Assessment and Plan Assessment: Proteus urinary tract infection -Continue with Rocephin -ID recommendations appreciated -Discontinue Alex catheter Acute kidney injury on chronic kidney disease stage III secondary to nephrosclerosis -Off IV fluids -Continue to hold Lasix and lisinopril -Follow basic metabolic profile -Nephrology recommendations appreciated Chronic venous insufficiency with possible associated cellulitis -On vancomycin -Antibiotics per infectious disease Metabolic acidosis - improving - follow AM labs Generalized weakness with multiple falls -PT/OT evaluation -Likely will need fdc facility at discharge Chronic systolic congestive heart failure with ejection fraction 30% -Lasix and lisinopril on hold secondary to a GI and hyperkalemia -resume coreg at low dose -Strict I's and O's -Daily weight Hyperkalemia, resolved Chronic: Hypertension Dyslipidemia Coronary artery disease Arthritis DVT prophylaxis: Heaprin added Discussed with: patient, nursing, CM Anticipated discharge: in 1-[address]: SNF A total of 35 minutes was spent on the care of this complex patient more than 5 0% of the time was spent in counseling and care coordination.
[2020-02-19] MEDS: SODIUM BICARBONATE TAB 650 MG TAB PO SCH ×2 (12:49→20:48)
[2020-02-19] MEDS: ALPRAZolam 0.25 MG TAB PO PRN ×2 (15:15→22:55)
[2020-02-19] MEDS: HEPARIN SODIUM,PORCINE 5,000 UNIT/ML 1 ML VIAL SQ SCH ×2 (17:22→22:54)
[2020-02-19] MEDS: CARVEDILOL 3.125 MG TAB PO SCH (17:26)
[2020-02-19] MEDS: MELATONIN 3 MG TABLET PO SCH (20:48)
--- NOTE | 2020-02-19 23:14 | PN ---
PROGRESS NOTE DATE OF SERVICE: 02/19/2020 REASON FOR FOLLOWUP: 1. Proteus mirabilis and E coli UTI. 2. Bilateral lower extremity wounds with cellulitis. INTERVAL HISTORY: The patient is currently afebrile. The patient is breathing comfortably. The patient denies having any chest pain or any cough. No abdominal pain. No pain in the lower extremity. PHYSICAL EXAMINATION: Blood pressure 123/70 with a pulse of 81, temperature 97.8. She is 94% on 2 liters nasal cannula. General description is an elderly female up in the chair in no distress. RESPIRATORY SYSTEM: Unlabored breathing. Clear to auscultation anteriorly. HEART: S1, S2. Regular rate and rhythm. ABDOMEN: Soft. No tenderness. Legs are currently wrapped up. No obvious drainage on the dressing. LABS: Hemoglobin is 11.5, white count 8.4. BUN of 28, creatinine is 1.8. DIAGNOSTIC IMPRESSION AND PLAN: 1. Patient with Proteus mirabilis and Escherichia coli urinary tract infection. Patient is currently covered with Rocephin. To finish therapy with oral Ceftin. 2. Lower extremity cellulitis covered with vancomycin, which can be discontinued on discharge and to continue local wound care with Aquacel Silver dressing and Shree wrap. Continue with supportive care. MMODL / IJN: [id number] /
[2020-02-20 04:41] VITALS: RESP 18
[2020-02-20 05:13] LABS: HCT 37.3 % (34.0-46.0); HGB 11.5 gm/dL (11.4-16.0); Hypochromasia Moderate; MCH 31.5 pg (25.0-35.0); MCHC 30.9 g/dL (31.0-37.0); MCV 102.1 fL (80.0-100.0); Macrocytosis Slight; Mean Platelet Volume 8.3; Platelet Count 199 k/uL (150-450); RBC 3.65 m/uL (3.80-5.40); RDW 14.2 % (11.5-15.5); WBC 7.7 k/uL (3.8-10.6)
[2020-02-20 05:23] LABS: Potassium 4.9 mmol/L (3.5-5.1)
[2020-02-20 06:30] LABS: Vancomycin,Random 15.2 ug/mL
[2020-02-20] MEDS: CARVEDILOL 3.125 MG TAB PO SCH (07:07)
[2020-02-20 08:54] VITALS: BMI 39.2
[2020-02-20] MEDS: ALPRAZolam 0.25 MG TAB PO PRN (09:17)
[2020-02-20] MEDS: HEPARIN SODIUM,PORCINE 5,000 UNIT/ML 1 ML VIAL SQ SCH (09:17)
[2020-02-20] MEDS: SODIUM BICARBONATE TAB 650 MG TAB PO SCH (09:18)
[2020-02-20] MEDS: ASPIRIN 325 MG TAB PO SCH (09:18)
--- NOTE | 2020-02-20 09:45 | P.PN ---
Subjective Patient is seen in follow-up for chronic kidney disease. GFR is at baseline. She is being treated for cellulitis. Urine output is good. No vomiting or diarrhea. Vital signs are stable. General: The patient appeared well nourished and normally developed. HEENT: Head exam is unremarkable. Neck is without jugular venous distension. LUNGS: Lungs are clear to auscultation and percussion. Breath sounds decreased. HEART: Rate and Rhythm are regular. First and second heart sounds normal. No murmurs, rubs or gallops. ABDOMEN: Nontender. EXTREMITITES: Lower extremities wrapped. Objective - Vital Signs Vital signs: Vital Signs Temp 97.4 F L 02/20/20 08:00 Pulse 88 02/20/20 08:00 Resp 18 02/20/20 08:00 BP 122/78 02/20/20 08:00 Pulse Ox 95 02/20/20 08:00 Intake & Output 02/19/20 02/20/20 02/20/20 18:59 06:59 18:59 Intake Total 1200 120 Output Total 800 475 Balance 400 -475 120 Weight 110.1 kg 110.1 kg Intake: Oral 1200 120 Output: Urine 800 475 Uretheral (Alex) 175 Other: Voiding Method Indwelling Catheter Indwelling Catheter - Labs CBC & Chem 7: 02/20/20 04:41 02/20/20 04:41 Labs: Abnormal Lab Results - Last 24 Hours (Table) 02/20/20 02/20/20 Range/Units 04:41 04:41 RBC 3.65 L (3.80-5.40) m/uL MCV 102.1 H (80.0-100.0) fL MCHC 30.9 L (31.0-37.0) g/dL Chloride 114 H (98-107) mmol/L BUN 25 H (7-17) mg/dL Creatinine 1.73 H (0.52-1.04) mg/dL Microbiology - Last 24 Hours (Table) 02/16/20 12:20 Urine Culture - Final Urine,Voided Proteus mirabilis Escherichia coli 02/16/20 12:35 Blood Culture - Preliminary Blood No Growth after 72 hours Assessment and Plan Plan: Assessment: 1. Acute kidney injury mostly prerenal secondary to infection and hypotension. Improved with IV hydration. Creatinine was 2.4 on admission and is down to 1.73 today. 2. Chronic kidney disease stage III secondary to nephrosclerosis. GFR at baseline. 3. Lower extremity cellulitis maintained on antibiotics. 4. Metabolic acidosis secondary to acute kidney injury. Better. Maintained on oral sodium bicarbonate. 5. UTI with urine culture positive for Proteus. Plan: Encourage oral intake. Avoid nephrotoxins. Continue to monitor renal function and urine output.
[2020-02-20] MEDS ORDERED: VANCOMYCIN 1,500 MG in SODIUM CHLORIDE 0.9% 250 ML IVPB ONE (10:00)
--- NOTE | 2020-02-20 10:23 | P.DS ---
Providers Date of admission: 02/16/20 13:29 Expected date of discharge: 02/20/20 Attending physician: Naren Hardwick MD Consults: 02/16/20 13:30 Consult Physician Routine Consulting Provider: Hyacinth Rodriguez Consult Reason/Comments: sepsis Do you want consulting provider notified?: Yes 02/16/20 15:39 Consult Physician Routine Consulting Provider: Sebas Alves Consult Reason/Comments: CKD Do you want consulting provider notified?: Yes Primary care physician: [facility] Course: Discharge Diagnosis: Proteus and E. coli urinary tract infection, present on admission, not catheter associated Acute kidney injury and chronic kidney disease stage III secondary to nephro sclerosis Chronic venous insufficiency with bilateral lower extremity venous stasis changes, possible cellulitis Metabolic acidosis Generalized weakness with multiple falls Chronic systolic congestive heart failure with ejection fraction 30% Hyperkalemia Hypertension Dyslipidemia Hospital Course: Patient is a 69-year-old female with a past medical history of coronary artery disease resulting in ischemic cardiomyopathy with ejection fraction of 30%, hypertension, chronic pain, and chronic kidney disease stage IV who presented to the hospital with complaints of severe weakness and falls. On arrival to the emergency department her vital signs were within normal limits. On arrival her potassium was 6.1, creatinine was slightly above baseline at 2.43 with a baseline of 2.2, and she was mildly acidotic. Her BNP was mildly elevated at 6840. CRP elevated at 81.1, and urinalysis showed positive nitrate, positive leukocyte esterase, and white blood cells of 97. She was started on IV fluids and antibiotics. Her lisinopril was held. She was given Lasix for her hyperkalemia along with IV fluids. She is admitted for further monitoring. There was also concern for bilateral lower extremity cellulitis and infectious disease was consulted. They recommended vancomycin and Rocephin as well as Shree wraps to her legs. She was seen by nephrology who recommended continuing with normal saline as well as holding her Lasix and SHREE inhibitor. She continued to improve. She was significantly weak and recommended for fdc facility on discharge. She will complete a course of oral Ceftin. She will resume. I've encouraged her that she needs to continue to work with therapy to try to increase her strength. She'll follow up with Dr. Alves in 1-2 weeks, she will need wound care on admission to [facility]. As patient continues to recover anticipate that her lisinopril will need to be resumed, she may need continued Lasix, her Coreg was 25 mg twice daily and as her condition improves we should attempt to maximize beta cristhian therapy. Recommend repeat basic metabolic profile in 2-3 days diagnosis acute kidney injury Patient does require continued Flores catheter secondary to significant perineal wounds. Patient seen and examined at bedside. She denies any nausea, vomiting, or diarrhea. She does report feeling anxious and having slightly increased "anxious" breathing. Vital signs reviewed and stable. General: non toxic, no distress, appears at stated age Derm: Blood pressure ulcers largest is on the anterior thigh of the left lower extremity with an area of eschar- 3 cm in diameter Warm, dry Head: atraumatic, normocephalic, symmetric Eyes: EOMI, no lid lag, anicteric sclera Mouth: no lip lesion, mucus membranes moist Cardiovascular: S1S2 reg, no murmur, positive posterior tibial pulse bilateral, Lungs: CTA bilateral, no rhonchi, no rales , no accessory muscle use Abdominal: soft, nontender to palpation, no guarding, no appreciable organomegaly Ext: no gross muscle atrophy, 1+ edema, no contractures Neuro: CN II-XI grossly intact, no focal neuro deficits Psych: Alert, oriented, appropriate affect A total of 35 minutes of time were spent preparing this complex discharge summary . Patient Condition at Discharge: Stable Plan - Discharge Summary Discharge Rx Participant: No New Discharge Prescriptions: New Cefuroxime [Ceftin] 250 mg PO BID 3 Days #7 tab Carvedilol [Coreg] 3.125 mg PO BID-W/MEALS tab Furosemide [Lasix] 20 mg PO DAILY #3 tab Sodium Bicarbonate Tab 650 mg PO BID tab ALPRAZolam [Xanax] 0.25 mg PO TID PRN #9 tab PRN Reason: Anxiety Continue Aspirin 325 mg PO DAILY Ondansetron HCl [Zofran] 8 mg PO Q8H PRN PRN Reason: Nausea And Vomiting Baclofen [Lioresal] 5 mg PO BID PRN PRN Reason: Pain HYDROcodone/APAP 7.5-325MG [[place] 7.5-325] 1 tab PO Q6HR PRN #12 tab PRN Reason: pain Discontinued Carvedilol 25 mg PO BID amLODIPine [Norvasc] 10 mg PO DAILY Lisinopril [Zestril] 10 mg PO DAILY Discharge Medication List Aspirin 325 mg PO DAILY 10/13/16 [History] Ondansetron HCl [Zofran] 8 mg PO Q8H PRN 12/12/19 [History] Baclofen [Lioresal] 5 mg PO BID PRN 02/16/20 [History] ALPRAZolam [Xanax] 0.25 mg PO TID PRN #9 tab 02/20/20 [Rx] Carvedilol [Coreg] 3.125 mg PO BID-W/MEALS tab 02/20/20 [Rx] Cefuroxime [Ceftin] 250 mg PO BID 3 Days #7 tab 02/20/20 [Rx] Furosemide [Lasix] 20 mg PO DAILY #3 tab 02/20/20 [Rx] HYDROcodone/APAP 7.5-325MG [[place] 7.5-325] 1 tab PO Q6HR PRN #12 tab 02/20/20 [Rx] Sodium Bicarbonate Tab 650 mg PO BID tab 02/20/20 [Rx] Follow up Appointment(s)/Referral(s): Elsa Xiong MD [Primary Care Provider] - 1-2 days Sebas Alves DO [STAFF PHYSICIAN] - 2 Weeks Activity/Diet/Wound Care/Special Instructions: Activity: as tolerated Diet: Heart healthy 2 L fluid restriction Wound Care: Suggest Santyl to the left inner thigh wound Frequent turns Special Instructions: Maintiain flores due to significant perineal wounds Repeat basic metabolic profile in 2 days diagnosis acute kidney injury As patient continues to recover anticipate that her lisinopril will need to be resumed, she may need continued Lasix, her Coreg was 25 mg twice daily and as her condition improves we should attempt to maximize beta cristhian therapy. Discharge Disposition: TRANSFER TO SNF/ECF
[2020-02-20] MEDS: HYDROcodone/APAP 7.5-325MG 1 EACH TAB PO PRN (10:38)
[2020-02-20 11:22] VITALS: BP 130/60; PULSE 82; TEMP 98.5
--- NOTE | 2020-02-22 01:14 | CDI ---
Documentation Clarification Form Date: 02/22/2020 From: Gabriele Amado Phone: If you have a question about this query, please contact Faye Guerrero, Vacation Planner at [phone] between 8am and 5pm. Admit Date: 02/16/2020 Discharge Date: 02/20/2020 Patient Name: Cathy Esqueda Visit Number: [id number] ATTENTION: The Clinical Documentation Specialists (CDI) and [facility] Coding Staff appreciate your assistance in clarifying documentation. Please respond to the clarification below the line at the bottom and electronically sign. The CDI & [facility] Coding staff will review the response and follow-up if needed. Please note: Queries are made part of the Legal Health Record. If you have any questions, please contact the author of this message via ITS. Dear Keyonna Choi, The patient presented ED with the UTI (urinary tract infection), Bilateral lower leg cellulitis, Sepsis associated hypotension. History/Risk Factors: UTI, Venous stasis, Cellulitis. WBC : 8.6 Lactic acid: Metabolic acidosis Blood cultures: NG120 Vitals signs on admission: Temperature 96.9 F L Pulse Rate 63 57 L 67 Respiratory rate 20 18 18 Blood Pressure 95/48 101/67 77/43 Treatment: Antibiotics, IV Fluids. Antibiotics: Rocephin IV Bolus:2 L IV fluid bolus Other: ED documentation states "Total Critical Care Time: 35 (Patient was hypotensive with BP in the 70s over 40s, 70 or 50s secondary to sepsis. Patient will be admitted for UTI, sepsis, as well as bilateral lower leg cellulitis." In your professional opinion, please clarify if these findings signify one of the following conditions, Condition Sepsis ruled out SIRS, without underlying infectious process Sepsis Severe Sepsis Septic Shock Other, please specify Unable to determine sepsis ruled out MTDD
== END 2020-02-20 12:10 | DRG 690 ==
LOC: EC 10:55 → 3SCARD 13:29
PROVIDERS: ADMIT Family Medicine; ATTEND Family Medicine
DX: N39.0 Urinary tract infection, site not specified (principal); I13.0 Hypertensive heart and chronic kidney disease with heart failure and stage 1 through stage 4 chronic kidney disease, or unspecified chronic kidney disease; I50.22 Chronic systolic (congestive) heart failure; L03.116 Cellulitis of left lower limb; L03.115 Cellulitis of right lower limb; N18.4 Chronic kidney disease, stage 4 (severe); E87.2 Acidosis; N17.9 Acute kidney failure, unspecified; I25.10 Atherosclerotic heart disease of native coronary artery without angina pectoris; I25.5 Ischemic cardiomyopathy; M19.90 Unspecified osteoarthritis, unspecified site; Z66 Do not resuscitate; E87.5 Hyperkalemia; E66.01 Morbid (severe) obesity due to excess calories; R53.81 Other malaise; E78.5 Hyperlipidemia, unspecified; E83.41 Hypermagnesemia; R29.6 Repeated falls; E86.0 Dehydration; D64.9 Anemia, unspecified; B96.89 Other specified bacterial agents as the cause of diseases classified elsewhere; B96.4 Proteus (mirabilis) (morganii) as the cause of diseases classified elsewhere; I87.2 Venous insufficiency (chronic) (peripheral); B96.20 Unspecified Escherichia coli [E. coli] as the cause of diseases classified elsewhere; I48.91 Unspecified atrial fibrillation; Z68.39 Body mass index [BMI] 39.0-39.9, adult; Z79.82 Long term (current) use of aspirin; I25.2 Old myocardial infarction; Z79.01 Long term (current) use of anticoagulants; Z79.899 Other long term (current) drug therapy; Z95.5 Presence of coronary angioplasty implant and graft; Z90.89 Acquired absence of other organs; Z98.51 Tubal ligation status; Z98.890 Other specified postprocedural states; Z90.49 Acquired absence of other specified parts of digestive tract; Z87.891 Personal history of nicotine dependence; Z82.49 Family history of ischemic heart disease and other diseases of the circulatory system
CPT/HCPCS: 36415; 71045; 80048; 80053; 80202; 81001; 83605; 83735; 83880; 84132; 84484; 85025; 85027; 85610; 85652; 85730; 86140; 87040; 87077; 87086; 87186; 93005; 94640; 96361; 96365; 96367; 99291